=== PATIENT | male | born 1960 | race Caucasian/White ===

== ENCOUNTER 2017-01-17 05:24 | Observation (INO) | payer OTHER ==
[~2017-01-17] VITALS: Ht 175.3 cm; Wt 94.9 kg
--- OUTSIDE RECORDS SUMMARY | ~2017-01-17 | XMS | Clinical Summary ---
Demographics + + + | Address | [address] | | | [place] [address] | + + + | Home Phone | | + + + | Preferred Language | Unknown | + + + | Marital Status | Single | + + + | Temple Affiliation | UNK | + + + | Race | White | + + + | Ethnic Group | Not or | + + + Author + + + | Organization | Unknown | + + + | Address | Unknown | + + + | Phone | Unavailable | + + + Care Team Providers + +------+ + | Care Adjunct Professor Of English Name | Role | Phone | + +------+ + PP | Unavailable | + +------+ + Source Comments DAVIAN is fully live on both [facility] Ambulatory and [facility] InPatient.[facility] Allergies Not on File [...]
[~2017-01-17 05:24] MED LIST: AMITRIPTYLINE H50 MG PO; AMITRIPTYLINE150 MG PO; ASPIRIN EC81 MG PO; BACTRIM DS TAB1 EACH PO; BENADRYL25 MG PO; BUMETANIDE1 MG PO; BUTALB-ACETAMI1 EACH PO; CIMETIDINE400 MG PO; COREG12.5 MG PO; COREG6.25 MG PO; CRESTOR40 MG PO; CYCLOBENZAPRINE10 MG PO; DEPAKOTE500 MG PO; DIGOXIN250 MCG PO; FISH OIL 1,0001 EAC2 PO; FOLIC ACID1 MG PO; GLIMEPIRIDE4 MG PO; GLUCOPHAGE1000 MG PO; GLYBURIDE2.5 MG PO; K-TAB ER20 MEQ PO; LANTUS SOL100 UNIT/1 SUB-Q; LASIX20 MG PO; LASIX40 MG PO; LISINOPRIL10 MG PO; MAGOX 400400 MG PO; MEDROL4 MG PO; METFORMIN HCL500 MG PO; MORPHINE SULFAT15 MG PO; MORPHINE SULFAT30 M1 PO; MS CONTIN30 MG PO; MS CONTIN60 MG PO; NABUMETONE750 MG PO; NITROGLYCERIN0.4 MG SL; NORCO 10-325 T1 EACH PO; NOVOLOG FL100 UNIT/1 SUB-Q; PLAVIX75 MG PO; POTASSIUM CHLO10 MEQ PO; RANITIDINE HCL150 MG PO; SEROQUEL50 MG PO; SIMVASTATIN80 MG PO; TRICOR145 MG PO; VENTOLIN HFA18 GM INH; VITAMIN D5000 UNIT PO; VYTORIN 10-401 EACH PO; ZYPREXA10 MG PO; [UNRECOGNIZED DRUG - OTHER]
[2017-01-17] MEDS ORDERED: NEURONTIN300 MG PO (05:47)
[2017-01-17] MEDS ORDERED: MORPHINE SULFAT30 M1 PO (06:18)
[2017-01-17] MEDS ORDERED: NIACIN1000 MG PO (06:20)
[2017-01-18] MEDS ORDERED: ONDANSETRON HCL4 MG PO (11:40)
--- NOTE | 2017-01-19 00:36 | EKG ---
[facility] [address] [place] [address] Signed Sinus tachycardia with 1st degree AV block Right superior axis deviation Pulmonary disease pattern Cannot rule out Inferior infarct (cited on or before 26-MAR-2016) Abnormal ECG When compared with ECG of 26-MAR-2016 16:32, [place] interval has increased Questionable change in initial forces of Inferior leads Confirmed by ALTA MORALES MD ([id number]) on 01/19/2017 12:36:15 AM Electronically Signed By: ALTA MORALES MD 01/19/17 0036 PATIENT NAME: MIGUELANGEL TRACY Electrocardiogram DATE OF : 58 PHYSICIAN: ALTA MORALES MD REPORT #: [id number] REPORT IS CONFIDENTIAL AND NOT TO BE RELEASED WITHOUT AUTHORIZATION
== END 2017-01-18 13:40 | disposition home or self-care (01) ==
LOC: ED 05:24 → CCU 05:25 → MS 15:29
PROVIDERS: ADMIT Internal Medicine
DX: K52.9 Noninfective gastroenteritis and colitis, unspecified (principal); I50.22 Chronic systolic (congestive) heart failure; I25.10 Atherosclerotic heart disease of native coronary artery without angina pectoris; E11.9 Type 2 diabetes mellitus without complications; F31.9 Bipolar disorder, unspecified; E78.5 Hyperlipidemia, unspecified; M54.5 Low back pain; G89.29 Other chronic pain; F11.20 Opioid dependence, uncomplicated; D72.829 Elevated white blood cell count, unspecified; M19.90 Unspecified osteoarthritis, unspecified site; I25.2 Old myocardial infarction; G43.909 Migraine, unspecified, not intractable, without status migrainosus; Z87.891 Personal history of nicotine dependence; Z79.82 Long term (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; Z79.4 Long term (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; Z79.891 Long term (current) use of opiate analgesic; Z79.899 Other long term (current) drug therapy; Z95.5 Presence of coronary angioplasty implant and graft; Z95.810 Presence of automatic (implantable) cardiac defibrillator
CPT/HCPCS: 36415; 71010; 80053; 80162; 83690; 83735; 83880; 84484; 85025; 93005; 93010; 94640; 94667; 94668; 94762; 96361; 96372; 96374; 96375; 96376; 99285; G0378; J0780; J1160; J1200; J1650; J1885; J2270; J2405; J2550; J2930; J7030; J7120

== ENCOUNTER 2017-04-24 15:58 | Emergency (ER) | payer OTHER ==
[~2017-04-24] VITALS: Ht 175.3 cm; Wt 94.9 kg
[~2017-04-24 15:58] MED LIST changes: +NEURONTIN300 MG PO; +NIACIN1000 MG PO; +ONDANSETRON HCL4 MG PO
[2017-04-24] MEDS ORDERED: METHYLPREDNISOLO4 M1 PO (17:22)
[2017-04-24] MEDS ORDERED: LEVAQUIN500 MG PO (17:22)
--- OUTSIDE RECORDS SUMMARY | 2017-04-24 17:31 | XMS | Clinical Summary ---
Demographics + + + | Address | [address] | | | [place] [address] | + + + | Home Phone | | + + + | Preferred Language | Unknown | + + + | Marital Status | Single | + + + | Yazdanism Affiliation | UNK | + + + | Race | White | + + + | Ethnic Group | Not or | + + + Author + + + | Organization | Unknown | + + + | Address | Unknown | + + + | Phone | Unavailable | + + + Care Team Providers + +------+ + | Care Computer Help Desk Specialist Name | Role | Phone | + +------+ + PP | Unavailable | + +------+ + Source Comments DAVIAN is fully live on both [facility] Ambulatory and [facility] InPatient.[facility] Allergies Not on File Current Medications Not on file Active Problems Not on file Social History + +-------+ +--------+------+ | Tobacco Use | Types | Packs/Day | Years | Date | | | | | Used | | + +-------+ +--------+------+ | Never Assessed | | | | | + +-------+ +--------+------+ + + + | Sex Assigned at | Date Recorded | | | | + + + | Not on file | | + + + Plan of Treatment + + + + + | Health Maintenance | Due Date | Last Done | Comments | + + + + + | INFLUENZA VACCINE | | | | | (FLU SHOT) | 7 | | | + + + + + Results Not on filefrom Last 3 Months"
--- OUTSIDE RECORDS SUMMARY | 2017-04-24 17:31 | XMS | Clinical Summary ---
Demographics + + + | Address | [address] | | | [place] [address] | + + + | Home Phone | | + + + | Preferred Language | Unknown | + + + | Marital Status | Single | + + + | Restorationist Affiliation | UNK | + + + | Race | White | + + + | Ethnic Group | Not or | + + + Author + + + | Organization | Unknown | + + + | Address | Unknown | + + + | Phone | Unavailable | + + + Care Team Providers + +------+ + | Care Handle Sander Operator Name | Role | Phone | + +------+ + PP | Unavailable | + +------+ + Source Comments DAVIAN is fully live on both [facility] Ambulatory and [facility] InPatient.[facility] Allergies Not on File Current Medications Not [...]
--- NOTE | 2017-04-24 18:38 | EKG ---
[facility] [address] [facility] [place] [address] Signed Normal sinus rhythm Right superior axis deviation Pulmonary disease pattern Possible Inferior infarct (cited on or before 26-MAR-2016) Abnormal ECG When compared with ECG of 17-JAN-2017 05:46, [place] interval has decreased ST no longer depressed in Anterior leads Confirmed by GOLDY GOODWIN MD ([id number]) on 04/24/2017 6:38:24 PM Electronically Signed By: GOLDY GOODWIN MD 04/24/17 1838 PATIENT NAME: MIGUELANGEL TRACY Electrocardiogram DATE OF : 58 PHYSICIAN: GOLDY GOODWIN MD REPORT #: [id number] REPORT IS CONFIDENTIAL AND NOT TO BE RELEASED WITHOUT AUTHORIZATION
== END 2017-04-24 18:29 | disposition home or self-care (01) ==
LOC: ED 15:58
DX: J42 Unspecified chronic bronchitis (principal); R07.9 Chest pain, unspecified; E11.9 Type 2 diabetes mellitus without complications; I25.2 Old myocardial infarction; I25.10 Atherosclerotic heart disease of native coronary artery without angina pectoris; Z79.4 Long term (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; Z79.82 Long term (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
CPT/HCPCS: 71045; 80053; 84484; 85025; 93005; 93010; 94640; 96374; 99283; J2930

== ENCOUNTER 2018-04-30 19:35 | Emergency (ER) | payer OTHER ==
[~2018-04-30] VITALS: Ht 175.3 cm; Wt 97.5 kg
--- OUTSIDE RECORDS SUMMARY | ~2018-04-30 | XMS | Clinical Summary ---
Demographics + + + | Address | [address] | | | [place] [address] | + + + | Home Phone | | + + + | Preferred Language | Unknown | + + + | Marital Status | | + + + | Nondenominational Affiliation | Unknown | + + + | Race | Unknown | + + + | Ethnic Group | Unknown | + + + Author + + + | Author | [facility] | + + + | Organization | [facility] | + + + | Address | Unknown | + + + | Phone | Unavailable | + + + Support + + +---------+ + | Name | Relationship | Address | Phone | + + +---------+ + | Asia Argueta | ECON | Unknown | | + + +---------+ + | Contreras Prakash | ECON | Unknown | | + + +---------+ + | Meir Blackmon | ECON | Unknown | | + + +---------+ + Care Team Providers + +------+ + | Care Housecleaner Floor Name | Role | Phone | + +------+ + | Donnell Ramirez DO | PP | | + +------+ + Allergies No Known Allergies Current Medications + + +---------+---------+------+------+-------+ | Prescription | Sig. | Disp. | Refills | Star | End | Statu | | | | | | t | Date | s | | | | | | Date | | | + + +---------+---------+------+------+-------+ | aspirin EC 81 MG | Take 81 mg by mouth | | | | | Activ | | EC tablet | daily with | | | | | e | | | breakfast. | | | | | | + + +---------+---------+------+------+-------+ | | Take 1 capsule by | | | | | Activ | | butalbital-acetamino | mouth every 4 (four) | | | | | e | | phen-caffeine | hours as needed for | | | | | | | (FIORICET WITH | Headaches. | | | | | | | CODEINE) | | | | | | | | [phone] MG per | | | | | | | | capsule | | | | | | | + + +---------+---------+------+------+-------+ | cyclobenzaprine | Take 10 mg by mouth | | | | | Activ | | (FLEXERIL) 10 MG | 3 (three) times | | | | | e | | tablet | daily as needed for | | | | | | | | Muscle spasms. | | | | | | + + +---------+---------+------+------+-------+ | diphenhydrAMINE | Take 50 mg by mouth | | | | | Activ | | (BENADRYL) 50 MG | 2 (two) times daily. | | | | | e | | capsule | | | | | | | + + +---------+---------+------+------+-------+ | folic acid | Take 0.5 mg by mouth | | | | | Activ | | (FOLVITE) 1 MG | daily. | | | | | e | | tablet | | | | | | | + + +---------+---------+------+------+-------+ | | Take 1 tablet by | | | | | Activ | | HYDROcodone-acetamin | mouth 3 (three) | | | | | e | | ophen (NORCO) 10-325 | times daily. | | | | | | | MG per tablet | | | | | | | + + +---------+---------+------+------+-------+ | insulin glargine | Inject 20 Units into | | | | | Activ | | (LANTUS) 100 UNIT/ML | the skin nightly. | | | | | e | | injection | | | | | | | + + +---------+---------+------+------+-------+ | | Take 1 tablet by | | | | | Activ | | gwuywrjexstw-bwau-wt | mouth daily. | | | | | e | | nerals-folic acid | | | | | | | | (CENTRUM) chewable | | | | | | | | tablet | | | | | | | + + +---------+---------+------+------+-------+ | nabumetone | Take 750 mg by mouth | | | | | Activ | | (RELAFEN) 750 MG | 2 (two) times | | | | | e | | tablet | daily. | | | | | | + + +---------+---------+------+------+-------+ | OLANZapine | Take 10 mg by mouth | | | | | Activ | | (ZYPREXA) 10 MG | nightly. | | | | | e | | tablet | | | | | | | + + +---------+---------+------+------+-------+ | carvedilol (COREG) | Take 1 tablet by | 60 | 11 | 10/1 | | Activ | | 12.5 MG tablet | mouth 2 (two) times | tablet | | 8/20 | | e | | | daily with meals. | | | 14 | | | + + +---------+---------+------+------+-------+ | clopidogrel | Take 1 tablet by | 30 | 11 | 10/1 | | Activ | | (PLAVIX) 75 MG | mouth daily. | tablet | | 8/20 | | e | | tablet | | | | 14 | | | + + +---------+---------+------+------+-------+ | digoxin (LANOXIN) | Take 1 tablet by | 30 | 11 | 10/1 | | Activ | | 0.25 MG tablet | mouth daily. | tablet | | 8/20 | | e | | | | | | 14 | | | + + +---------+---------+------+------+-------+ | ezetimibe (ZETIA) | Take 1 tablet by | 30 | 11 | 10/1 | | Activ | | 10 MG tablet | mouth nightly. | tablet | | 8/20 | | e | | | | | | 14 | | | + + +---------+---------+------+------+-------+ | simvastatin | Take 1 tablet by | 30 | 11 | 10/1 | | Activ | | (ZOCOR) 80 MG tablet | mouth nightly. | tablet | | 8/20 | | e | | | | | | 14 | | | + + +---------+---------+------+------+-------+ | furosemide (LASIX) | Take 1 tablet by | 60 | 11 | 10/1 | | Activ | | 40 MG tablet | mouth Two times | tablet | | 8/20 | | e | | | daily. | | | 14 | | | + + +---------+---------+------+------+-------+ | glimepiride | Take 1 tablet by | 30 | 11 | 10/1 | | Activ | | (AMARYL) 4 MG tablet | mouth daily with | tablet | | 8/20 | | e | | | breakfast. | | | 14 | | | + + +---------+---------+------+------+-------+ | insulin aspart | Inject 0-6 Units | 15 mL | 12 | 10/1 | | Activ | | (NOVOLOG) 100 | into the skin 3 | | | 8/20 | | e | | UNIT/ML injection | (three) times daily | | | 14 | | | | | before meals. | | | | | | + + +---------+---------+------+------+-------+ | lisinopril | Take 1 tablet by | 30 | 11 | 10/1 | | Activ | | (ZESTRIL) 10 MG | mouth daily. | tablet | | 8/20 | | e | | tablet | | | | 14 | | | + + +---------+---------+------+------+-------+ | nitroGLYCERIN | Place 1 tablet under | 90 | 12 | 10/1 | | Activ | | (NITROSTAT) 0.4 MG | the tongue every 5 | tablet | | 8/20 | | e | | SL tablet | (five) minutes as | | | 14 | | | | | needed for Chest | | | | | | | | pain. | | | | | | + + +---------+---------+------+------+-------+ | potassium chloride | Take 1 tablet by | 60 | 11 | 10/1 | | Activ | | (K-DUR) 10 MEQ | mouth 2 (two) times | tablet | | 8/20 | | e | | tablet | daily with meals. | | | 14 | | | + + +---------+---------+------+------+-------+ | morphine (MS | Take 1 tablet by | 60 | 0 | 10/1 | | Activ | | CONTIN) 60 MG 12 hr | mouth 2 (two) times | tablet | | 8/20 | | e | | tablet | daily. | | | 14 | | | + + +---------+---------+------+------+-------+ | omega-3 acid ethyl | Take 1 capsule by | 120 | 11 | 02/0 | | Activ | | esters (LOVAZA) 1 G | mouth 2 (two) times | capsule | | 6/20 | | e | | capsule | daily. | | | 15 | | | + + +---------+---------+------+------+-------+ | co-enzyme Q-10 30 | Take 7 capsules by | 180 | 11 | 02/0 | | Activ | | MG capsule | mouth 2 (two) times | capsule | | 6/20 | | e | | | daily. | | | 15 | | | + + +---------+---------+------+------+-------+ | MAGNESIUM-OXIDE | TAKE ONE TABLET BY | 60 | 1 | 02/2 | | Activ | | 400 (241.3 MG) MG | MOUTH TWICE A DAY | tablet | | 2/20 | | e | | TABS tablet | | | | 17 | | | + + +---------+---------+------+------+-------+ | magnesium oxide | TAKE ONE TABLET BY | 60 | 11 | 11/0 | | Activ | | (MAG-OX) 400 MG TABS | MOUTH TWICE A DAY | tablet | | 6/20 | | e | | tablet | | | | 18 | | | + + +---------+---------+------+------+-------+ | magnesium oxide | TAKE ONE TABLET BY | 60 | 11 | 01/0 | | Activ | | (MAG-OX) 400 MG TABS | MOUTH TWICE A DAY | tablet | | 9/20 | | e | | tablet | | | | 19 | | | + + +---------+---------+------+------+-------+ Active Problems + + + | Problem | Noted Date | + + + | Chest pain, unspecified | 12/02/2013 | + + + | CAD (coronary artery disease) | 12/02/2013 | + + + | Cardiomyopathy (HCC) | 12/02/2013 | + + + | Dilated cardiomyopathy (HCC) | 12/02/2013 | + + + | Chronic systolic CHF (congestive heart failure) | 12/02/2013 | + + + | Diabetes mellitus (HCC) | 12/02/2013 | + + + | COPD (chronic obstructive pulmonary disease) | 12/02/2013 | + + + | Dyslipidemia | 12/02/2013 | + + + Encounters +--------+--------+ + + + | Date | Type | Specialty | Care Team | Description | +--------+--------+ + + + | 02/23/ | Refill | | Krysta Nj NP | Medication Refill | | 2018 | | | | | +--------+--------+ + + + from Last 3 Months Family History + + +------+ + | Medical History | Relation | Name | Comments | + + +------+ + | Heart disease | Father | | | + + +------+ + | Cancer | Mother | | | + + +------+ + + +------+ + + | Relation | Name | Status | Comments | + +------+ + + | Father | | | | + +------+ + + | Mother | | | | + +------+ + + Social History + +-------+ +--------+ + | Tobacco Use | Types | Packs/Day | Years | Date | | | | | Used | | + +-------+ +--------+ + | Former Smoker | | 1 | 30 | Quit: 09/16/2013 | + +-------+ +--------+ + + + +---------+ + | Alcohol Use | Drinks/We | oz/Week | Comments | | | ek | | | + + +---------+ + | No | | | previous alcoholic, sober for 25 yrs | + + +---------+ + + + + | Sex Assigned at | Date Recorded | | | | + + + | Not on file | | + + + Last Filed Vital Signs + + + + | Vital Sign | Reading | Time Taken | + + + + | Blood Pressure | 97/57 | 03/24/2014 11:41 AM PST | + + + + | Pulse | 74 | 03/24/2014 11:41 AM PST | + + + + | Temperature | 36.8 C (98.3 F) | 12/15/2013 7:44 AM PDT | + + + + | Respiratory Rate | 20 | 03/24/2014 11:41 AM PST | + + + + | Oxygen Saturation | 99% | 03/24/2014 11:41 AM PST | + + + + | Inhaled Oxygen | - | - | | Concentration | | | + + + + | Weight | 93.3 kg (205 lb 9.6 | 03/24/2014 11:41 AM PST | | | oz) | | + + + + | Height | 175.3 cm (5' 9") | 03/24/2014 11:41 AM PST | + + + + | Body Mass Index | 30.36 | 03/24/2014 11:41 AM PST | + + + + Plan of Treatment + + + + + | Health Maintenance | Due Date | Last Done | Comments | + + + + + | Diabetic Eye Exam | | | | | | 9 | | | + + + + + | Diabetic Foot Exam | | | | | | 9 | | | + + + + + | Microalbumin | | | | | Screening | 9 | | | + + + + + | Vaccine: | | | | | Dtap/Tdap/Td (1 - | 8 | | | | Tdap) | | | | + + + + + | Vaccine: | | | | | Pneumococcal 19-64 | 8 | | | | (PPSV23 only) Medium | | | | | Risk (1 of 1 - | | | | | PPSV23) | | | | + + + + + | Colon Cancer | | | | | Screening | 9 | | | | (Colonoscopy) | | | | + + + + + | Vaccine: Zoster (1 | | | | | of 2) | 9 | | | + + + + + | Lung Cancer | | | | | Screening | 4 | | | + + + + + | Hemoglobin A1c | | 12/03/2013 | | | | 5 | | | + + + + + | Statin Therapy | | | | | (optimal intensity) | 6 | | | + + + + + | Vaccine: Influenza | | | | | (#1) | 8 | | | + + + + + Implants + +--------+------+ +--------+--------+--------+ | Implanted | Type | Area | Manufacture | Device | Expira | Model | | | | | r | | tion | / | | | | | | Identi | Date | Serial | | | | | | fier | | / Lot | + +--------+------+ +--------+--------+--------+ | RvImplanted: Qty: 1 on | Cardia | | | | | | | 12/14/2013 by Martin Aguilera | juan diego | | | | | /[id number] | | RMD | Rhythm | | | | | [id number] | | | | | | | | / | | | Manage | | | | | | | | ment | | | | | | + +--------+------+ +--------+--------+--------+ | RaImplanted: Qty: 1 on | Cardia | | [employer]TRONIC | | | | | 12/14/2013 by Martin Aguilera | c | | | | | /[id number] | | MD Payal | Rhythm | | | | | [id number] | | | | | | | | / | | | Manage | | | | | | | | ment | | | | | | + +--------+------+ +--------+--------+--------+ | IcdImplanted: Qty: 1 on | Cardia | | [employer] | | | | | 12/14/2013 by Martin Aguilera | c | | | | | /[id number] | | MD Payal | Rhythm | | | | | D4 / | | | | | | | | | | | Manage | | | | | | | | ment | | | | | | + +--------+------+ +--------+--------+--------+ Results Not on filefrom Last 3 Months Insurance + +--------+ +------+-------+ + | Payer | Benefi | Subscriber | Type | Phone | Address | | | t Plan | ID | | | | | | / | | | | | | | Group | | | | | + +--------+ +------+-------+ + | MEDICAID | MIRNA | [id number] | | | [address] | | | N | | | | [place] | | | [place] | | | | [phone] | | | [employer] | | | | | + +--------+ +------+-------+ + + +--------+ +--------+ + + | Guarantor Name | Accoun | Relation to | Date | Phone | Billing Address | | | t Type | Patient | of | | | | | | | | | | + +--------+ +--------+ + + | MIGUELANGEL ARGUETA | Person | Self [birth year] | Home: | [address] | | | al/Fam | | [phone] [place] | | | [place] | | [phone] | + +--------+ +--------+ + +
--- OUTSIDE RECORDS SUMMARY | ~2018-04-30 | XMS | Encounter Summary ---
Demographics + + + | Address | [address] | | | [place] [address] | + + + | Home Phone | | + + + | Preferred Language | Unknown | + + + | Marital Status | | + + + | Episcopalian Affiliation | Unknown | + + + | Race | Unknown | + + + | Ethnic Group | Unknown | + + + Author + + + | Author | [facility] | | | and [place] | + + + | Organization | [facility] | | | and [place] | + + + | Address | Unknown | + + + | Phone | Unavailable | + + + Support + + + + + | Name | Relationship | Address | Phone | + + + + + | Contreras Marie | ECON | [place] | | + + + + + | Asia Argueta | ECON | [address] | | | | | [place] | | | | | [address] | | + + + + + Care Team Providers + +------+ + | Care Adult Ministries Director Name | Role | Phone | + +------+ + PCP | Unavailable | + +------+ + Reason for Visit + + + | Reason | Comments | + + + | Device Check | Billed | | (Remote) | | + + + Encounter Details +--------+ + + + + | Date | Type | Department | Care Team | Description | +--------+ + + + + | 02/14/ | Implant | [facility] | Mary Rollins, | Remote Device | | 2018 | Monitor | CARDIOLOGY [address] [place] | Interrogation | | | | [place], | [place], | (Primary Dx); | | | | [place] [address] | [place] [address] | Medtronic dual | | | | [phone] | [phone] | chamber ICD | | | | | | implanted 12/14/13- | | | | | | Dr. Aguilera; | | | | | | Cardiomyopathy, | | | | | | unspecified type | | | | | | ([facility]) | +--------+ + + + + Social History + + + +--------+ + | Tobacco Use | Types | Packs/Day | Years | Date | | | | | Used | | + + + +--------+ + | Current Some Day | Cigarettes | 0.5 | 30 | Quit: 10/15/2013 | | Smoker | | | | | + + + +--------+ + + +---+---+---+ | Smokeless Tobacco: | | | | | Former User | | | | + +---+---+---+ + + | Comments: Only in high school | + + + + +---------+ + | Alcohol Use | Drinks/We | oz/Week | Comments | | | ek | | | + + +---------+ + | No | | | | + + +---------+ + + + + | Sex Assigned at | Date Recorded | | | | + + + | Not on file | | + + + as of this encounter Functional Status + + + + | Functional Status | Response | Date of Assessment | + + + + | Are you deaf or do you have serious | No | 11/30/2013 | | difficulty hearing? | | | + + + + | Are you blind or do you have serious | No | 11/30/2013 | | difficulty seeing, even when wearing | | | | glasses? | | | + + + + | Do you have serious difficulty walking or | No | 11/30/2013 | | climbing stairs? (5 years old or older) | | | + + + + | Do you have difficulty dressing or bathing? | No | 11/30/2013 | | (5 years old or older) | | | + + + + | Because of a physical, mental, or emotional | No | 11/30/2013 | | condition, do you have difficulty doing | | | | errands alone such as visiting a doctor's | | | | office or shopping? [15 years old or | | | | older)] | | | + + + + + + + + | Cognitive Status | Response | Date of Assessment | + + + + | Because of a physical, mental, or emotional | No | 11/30/2013 | | condition, do you have serious difficulty | | | | concentrating, remembering, or making | | | | decisions? (5 years old or older) | | | + + + + as of this encounter Plan of Treatment +--------+ + + + + | Date | Type | Specialty | Care Team | Description | +--------+ + + + + | 05/16/ | Implant | Cardiology | Mary Rollins, | Remote Device | | 2019 | Monitor | | [address] | Interrogation | | | | | [place], | (Primary Dx); | | | | | [place] [address] | Medtronic dual | | | | | [phone] | chamber ICD | | | | | | implanted 12/14/13- | | | | | | Dr. Aguilera; | | | | | | Cardiomyopathy, | | | | | | unspecified type | | | | | | (HCC) | +--------+ + + + + | 05/27/ | Appointment | Radiology | Lg, | | | 2018 | | | [address] | | | | | | [place], | | | | | | [place] [address] | | | | | | [phone] | | | | | | | | +--------+ + + + + | 07/07/ | Procedure | Cardiology | | | | 2018 | visit | | | | +--------+ + + + + | 07/07/ | Office | Cardiology | Lg, | | | 2018 | Visit | | [address] | | | | | | [place], | | | | | | [place] [address] | | | | | | [phone] | | | | | | | | +--------+ + + + + as of this encounter Procedures + +--------+ + + + | Procedure Name | Priori | Date/Time | Associated Diagnosis | Comments | | | ty | | | | + +--------+ + + + | DEVICE | Routin | 02/14/2018 | Remote Device | Results for this | | INTERROGATION- | e | 962 PST | Interrogation | procedure are in the | | REMOTE | | | Medtronic dual | results section. | | | | | chamber ICD | | | | | | implanted 12/14/13- | | | | | | Dr. Aguilera | | | | | | Cardiomyopathy, | | | | | | unspecified type | | | | | | (HCC) | | + +--------+ + + + in this encounter Results Device Interrogation - Remote (02/14/2018 2359) + + + | Narrative | Performed At | + + + | Mary | [facility]O | | MD Ayo 02/12/2018 11:56Date of Remote Interrogation: | | | 02/02/2018 Refer to [facility] documentation and remote PDF scanned into | | | [facility] for remote interrogation results. Data collected by Ruthann Moe | | | LUZ ELENA Alvarez Presenting rhythm: Sinus rhythm, atrial sensed | | | ventricular sensed rate 87-90 beats. 0 mode switch episodes accounting | | | for <0.1% of the time.No episodes. No tachycardia therapies | | | recommended or delivered. PVC singles 32/hr | | | PVC runs <0.1/hr Histogram good. | | | Battery longevity 7.2 years.Apparent normal and stable device | | | function.Device interrogation due in office in May 2018. | | |PVC singles 32/hr | | |PVC runs <0.1/hr | | |Histogram good. Battery longevity 7.2 years. | | |Apparent normal and stable device function. | | |Device interrogation due in office in May 2018. | | | | | | | | + + + + +---------+ + + | Performing | Address | City/State/Zipcode | Phone Number | | Organization | | | | + +---------+ + + | [facility] | | | | + +---------+ + + in this encounter Visit Diagnoses + + | Diagnosis | + + | Remote Device Interrogation - Primary | + + | Fitting and adjustment of automatic implantable cardiac defibrillator | + + | Medtronic dual chamber ICD implanted 12/14/13- Dr. Aguilera | + + | Automatic implantable cardiac defibrillator in situ | + + | Cardiomyopathy, unspecified type (HCC) | + +"
--- OUTSIDE RECORDS SUMMARY | ~2018-04-30 | XMS | Clinical Summary ---
Demographics + + + | Address | [address] | | | [place] [address] | + + + | Home Phone | | + + + | Preferred Language | Unknown | + + + | Marital Status | Single | + + + | Rastafari Affiliation | UNK | + + + | Race | White | + + + | Ethnic Group | Not or | + + + Author + + + | Organization | Unknown | + + + | Address | Unknown | + + + | Phone | Unavailable | + + + Care Team Providers + +------+ + | Care Aircraft Hydraulic Equipment Mechanic Name | Role | Phone | + +------+ + PP | Unavailable | + +------+ + Source Comments DAVIAN is fully live on both [facility] Amb[facility] and [facility] InPatient.[facility] Allergies Not on File Current Medications [...] | + + + + + | Influenza (Flu) | | | | | vaccination (#1) | 8 | | | + + + + + Results Not on filefrom Last 3 Months"
--- OUTSIDE RECORDS SUMMARY | ~2018-04-30 | XMS | Clinical Summary ---
Demographics + + + | Address | [address] | | | [place] [address] | + + + | Home Phone | | + + + | Preferred Language | Unknown | + + + | Marital Status | | + + + | Taoist Affiliation | Unknown | + + + | Race | Unknown | + + + | Ethnic Group | Unknown | + + + Author + + + | Author | [facility] | + + + | Organization | [facility] | + + + | Address | [...] Team Providers + +------+ + | Care Automatic Cigar Wrapper Tender Name | Role | Phone | + [...] | | | | | | | [id number] MG per | | | | | [...] | | | | Activ | | [id number] | mouth daily. | | | | [...] | Rhythm | | | | | [id number] | | | | | | | [...] +------+-------+ + | MEDICAID | [place]IR[place] | [id number] | | | [address] | | | [place] | | | | [place] | | | [place] | | | | [address] | | | [place] | | | | | + +--------+ [...] | | al/Fam | | [phone] | [phone] | [place] | | | akshat | | | [phone] | [phone] | + +--------+ +--------+ + +
--- OUTSIDE RECORDS SUMMARY | ~2018-04-30 | XMS | Encounter Summary ---
Demographics + + + | Address | [address] | | | [place] [address] | + + + | Home Phone | | + + + | Preferred Language | Unknown | + + + | Marital Status | | + + + | Confucianist Affiliation | Unknown | + + + | Race | Unknown | + + + | Ethnic Group | Unknown | + + + Author + + + | Author | [facility] | | | and [place] | + + + | Organization | [facility] | | | and [place] | [...] [place] | | | | | [address] | | + + + + + Care Team Providers + +------+ + | Care Registered Account Administrator Name | Role | Phone | + [...] | 02/14/ | Implant | [facility] [place] | Mary Rollins, | Remote Device | | 2018 | Monitor | CARDIOLOGY [address] | Interrogation | | | | [place], | [place], | (Primary Dx); | | | | [place] [address] | [place] [address] | Medtronic dual | | | | [phone] | [phone] | chamber ICD | | | | | | implanted 12/14/13- | | | | | | Dr. Aguilera; | | | | | | Cardiomyopathy, | | | | | | unspecified type | | | | | | ([facility]LY [facility]) | +--------+ + + + + Social [...] Dx); | | | | | [place] [address] | Medtronic dual | | | | | [phone] | chamber ICD | | | | [...] W | | | | | | [place], | | | | | | [place] [address] | | | | | | [phone] | | | | | | | | +--------+ + + + + | 07/07/ | Procedure | Cardiology | | | | 2018 | visit | | | | +--------+ + + + + | 07/07/ | Office | Cardiology | Lg, | | | 2018 | Visit | | [address] | | | | | | [place], | | | | | | [place] [address] | | | | | | [phone] | | | | | | | [...] this | | INTERROGATION- | e | 146 PST | Interrogation | procedure are in [...] remote PDF scanned into | | | [facility] for remote interrogation results. Data collected by [...]
--- OUTSIDE RECORDS SUMMARY | ~2018-04-30 | XMS | Encounter Summary ---
Demographics + + + | Address | [address] | | | [place] [address] | + + + | Home Phone | | + + + | Preferred Language | Unknown | + + + | Marital Status | | + + + | Sikh Affiliation | Unknown | + + + | Race | Unknown | + + + | Ethnic Group | Unknown | + + + Author + + + | Author | and [facility] | | | and [place] | + + + | Organization | and [facility] | | | and [place] | [...] [address] | | | | | [place] | | | | | [address] | | + + + + + Care Team Providers + +------+ + | Care Claim Rep Name | Role | Phone | + +------+ + | Donnell Ramirez DO | PCP | | + +------+ + Reason for Visit + + + | Reason | Comments | + + + | Medication Prior | Rosuvastatin | | Authorization | | + + + Encounter Details +--------+ + + + + | Date | Type | Department | Care Team | Description | +--------+ + + + + | 02/26/ | Telephone | [facility] | Lg, | Medication Prior | | 2019 | | CARDIOLOGY [address] | [address] | Authorization | | | | [place], | [place], | (Rosuvastatin) | | | | [place] [address] | [place] [address] | | | | | [phone] | [phone] | | | | | | | | +--------+ + + + + Social [...] | | 2019 | Monitor | | MD Osmani Gil | Interrogation | | | | | [place], | (Primary Dx); | | | | | [place] [address] | Medtronic dual | | | | | [phone] | chamber ICD | | | | | | implanted 12/14/13- | | | | | | Dr. Augilera; | | | | | | Cardiomyopathy, | | | | | | unspecified type | | | | | | (HCC) | +--------+ + + + + | 05/27/ | Appointment | Radiology | Lg, | | | 2018 | | | [address] | | | | | | [place], | | | | | | [place] [address] | | | | | | [phone] | | | | | | | | +--------+ + + + + | 07/07/ | Procedure | Cardiology | | | | 2018 | visit | | | | +--------+ + + + + | 07/07/ | Office | Cardiology | Lg, | | | 2018 | Visit | | [address] | | | | | | [place], | | | | | | [place] [address] | | | | | | [phone] | | | | | | | | +--------+ + + + + as of this encounter Visit Diagnoses Not on filein this encounter"
--- OUTSIDE RECORDS SUMMARY | ~2018-04-30 | XMS | Clinical Summary ---
Demographics + + + | Address | [address] | | | [place] [address] | + + + | Home Phone | | + + + | Preferred Language | Unknown | + + + | Marital Status | | + + + | Taoist Affiliation | Unknown | + + + | Race | Unknown | + + + | Ethnic Group | Unknown | + + + Author + + + | Author | [facility] | | | and [place] | + + + | Organization | [facility] | | | and [place] | + + + | Address | Unknown | + + + | Phone | Unavailable | + + + Support + + + + + | Name | Relationship | Address | Phone | + + + + + | Contreras Marie | ECON | [place] | | + + + + + | Asia Tracy | ECON | [address] | | | | | [place] | | | | | [address] | | + + + + + Care Team Providers + +------+ + | Care Videogame Designer Name | Role | Phone | + +------+ + | Donnell Ramirez DO | PP | | + +------+ + Allergies + + + +--------+ + | Active Allergy | Reactions | Severity | Noted | Comments | | | | | Date | | + + + +--------+ + | Fluconazole | Rash | Low | | | + + + +--------+ + | Lovastatin | Other (See Comments) | | | | + + + +--------+ + Current Medications + + +--------+---------+------+------+-------+ | Prescription | Sig. | Disp. | Refills | Star | End | Statu | | | | | | t | Date | s | | | | | | Date | | | + + +--------+---------+------+------+-------+ | diphenhydrAMINE | Take 50 mg by mouth | | | | | Activ | | (BENADRYL) 25 MG | 2 times daily. | | | | | e | | capsule | | | | | | | + + +--------+---------+------+------+-------+ | amitriptyline | Take 150 mg by mouth | | | | | Activ | | (ELAVIL) 150 MG | nightly. | | | | | e | | tablet | | | | | | | + + +--------+---------+------+------+-------+ | nabumetone | Take 750 mg by mouth | | | | | Activ | | (RELAFEN) 750 mg | 2 times daily. | | | | | e | | tablet | | | | | | | + + +--------+---------+------+------+-------+ | folic acid 1 mg | Take 0.5 mg by mouth | | | | | Activ | | tablet | Daily. | | | | | e | + + +--------+---------+------+------+-------+ | Multiple | Take 1 tablet by | | | | | Activ | | Vitamins-Minerals | mouth Daily. | | | | | e | | (CENTRUM SILVER PO) | | | | | | | + + +--------+---------+------+------+-------+ | ALBUTEROL | Inhale 1 puff into | | | | | Activ | | | the lungs as needed. | | | | | e | | | Uses only as | | | | | | | | needed. | | | | | | + + +--------+---------+------+------+-------+ | morphine (MS | Take 1 tablet by | 60 | 0 | 10/1 | | Activ | | CONTIN) 60 mg ER | mouth 2 times daily. | tablet | | 3/20 | | e | | tabletIndications: | | | | 14 | | | | Chronic pain | | | | | | | + + +--------+---------+------+------+-------+ | OLANZapine | Take 10 mg by mouth | | | | | Activ | | (ZYPREXA) 10 MG | nightly. | | | | | e | | tablet | | | | | | | + + +--------+---------+------+------+-------+ | metformin | Take 1,000 mg by | | | | | Activ | | (GLUCOPHAGE) 1000 MG | mouth 2 times daily | | | | | e | | tablet | (with breakfast & | | | | | | | | dinner). | | | | | | + + +--------+---------+------+------+-------+ | Marinette 3 1000 MG | Take 2,000 mg by | | | | | Activ | | CAPS | mouth Daily. | | | | | e | + + +--------+---------+------+------+-------+ | magnesium oxide | Take 400 mg by mouth | | | | | Activ | | (MAG-OX) 400 mg | 2 times daily. | | | | | e | | tablet | | | | | | | + + +--------+---------+------+------+-------+ | metolazone | TAKE ONE TABLET BY | 10 | 5 | 10/1 | | Activ | | (ZAROXOLYN) 2.5 mg | MOUTH EVERY DAY | tablet | | 2/20 | | e | | tablet | NEEDED ( MORE THEN 5 | | | 15 | | | | | POUNDS WEIGHT GAIN | | | | | | | | IN LESS THEN 7 DAYS) | | | | | | + + +--------+---------+------+------+-------+ | insulin aspart | Inject 18 Units/hr | | | | | Activ | | (NOVOLOG) 100 | under the skin | | | | | e | | units/mL | continuous. SLIDING | | | | | | | subcutaneous pump | SCALE | | | | | | | infusion | | | | | | | + + +--------+---------+------+------+-------+ | meclizine | One tablet by mouth | 30 | 1 | 09/0 | | Activ | | (ANTIVERT) 25 mg | every 8-12 hours as | tablet | | 2/20 | | e | | tablet | needed for | | | 16 | | | | | dizziness/vertigo | | | | | | + + +--------+---------+------+------+-------+ | fenofibrate | Take 145 mg by mouth | | | 02/2 | | Activ | | (TRICOR) 145 mg | Daily. | | | 2/20 | | e | | tablet | | | | 17 | | | + + +--------+---------+------+------+-------+ | raNITIdine | Take 150 mg by mouth | | | 02/2 | | Activ | | (ZANTAC) 150 mg | Daily. | | | 2/20 | | e | | tablet | | | | 17 | | | + + +--------+---------+------+------+-------+ | FREESTYLE LITE | | | | 04/2 | | Activ | | strip | | | | 4/20 | | e | | | | | | 17 | | | + + +--------+---------+------+------+-------+ | LANTUS SOLOSTAR | Inject 44 Units | | | 04/2 | | Activ | | 100 UNIT/ML | under the skin | | | 4/20 | | e | | injection (pen) | nightly. | | | 17 | | | + + +--------+---------+------+------+-------+ | UNIFINE PENTIPS | | | | 04/2 | | Activ | | 31G X 8 MM | | | | 4/20 | | e | | | | | | 17 | | | + + +--------+---------+------+------+-------+ | gabapentin | 1 tablet 3 times a | | | 09/0 | | Activ | | (NEURONTIN) 300 mg | day and 2 tabs at | | | 5/20 | | e | | capsule | bed time | | | 17 | | | + + +--------+---------+------+------+-------+ | lisinopril | TAKE ONE TABLET BY | 180 | 3 | 04/3 | | Activ | | (PRINIVIL, ZESTRIL) | MOUTH TWICE A DAY | tablet | | 0/20 | | e | | 10 mg tablet | | | | 18 | | | + + +--------+---------+------+------+-------+ | potassium chloride | TAKE ONE TABLET BY | 270 | 3 | 05/3 | | Activ | | (K-DUR) 20 mEq ER | MOUTH TWICE A DAY | tablet | | 0/20 | | e | | tablet | TAKE AN ADDITIONAL | | | 18 | | | | | TABLET ON DAYS EXTRA | | | | | | | | BUMETANIDE IS TAKEN | | | | | | + + +--------+---------+------+------+-------+ | bumetanide (BUMEX) | TAKE ONE TABLET BY | 180 | 3 | 08/3 | | Activ | | 1 mg tablet | MOUTH TWICE A DAY. | tablet | | 0/20 | | e | | | TAKE AN ADDITIONAL | | | 18 | | | | | TABLET TWO TIMES A | | | | | | | | DAY FOR FLUID | | | | | | | | RETENTION. | | | | | | + + +--------+---------+------+------+-------+ | rosuvastatin | TAKE 1 TABLET BY | 90 | 3 | 08/3 | | Activ | | (CRESTOR) 40 MG | MOUTH NIGHTLY | tablet | | 0/20 | | e | | tablet | | | | 18 | | | + + +--------+---------+------+------+-------+ | aspirin 81 MG | Take 81 mg by mouth | | | | | Activ | | tablet | 2 times daily. | | | | | e | + + +--------+---------+------+------+-------+ | | Take 1 capsule by | | | | | Activ | | butalbital-acetamino | mouth 4 times daily | | | | | e | | ubbe-bjcnarke-zcbgnv | as needed. | | | | | | | e (FIORICET WITH | | | | | | | | CODEINE) | | | | | | | | [phone] MG per | | | | | | | | capsule | | | | | | | + + +--------+---------+------+------+-------+ | OSVALDO MISHRA | Inject 300 Units | | | 10/1 | | Activ | | 300 UNIT/ML | under the skin | | | 9/20 | | e | | concentrated | Daily. | | | 18 | | | | injection (pen) | | | | | | | + + +--------+---------+------+------+-------+ | ergocalciferol | Take 50,000 Units by | | | 10/0 | | Activ | | (VITAMIN D-2) 50,000 | mouth Daily. | | | 4/20 | | e | | units capsule | | | | 18 | | | + + +--------+---------+------+------+-------+ | EPINEPHrine | epinephrine 0.3 | | | | | Activ | | auto-injector 0.3 | mg/0.3 mL injection, | | | | | e | | mg/0.3 mL injection | auto-injector Take | | | | | | | | 1 auto every day by | | | | | | | | injection route prn | | | | | | | | anaphylaxis | | | | | | | | reaction. | | | | | | + + +--------+---------+------+------+-------+ | KIP PETTIT | | | | 10/0 | | Activ | | MISC | | | | 2/20 | | e | | | | | | 18 | | | + + +--------+---------+------+------+-------+ | morphine (MS | Take 30 mg by mouth | | | 10/0 | | Activ | | CONTIN) 30 mg ER | 3 times daily. | | | 20 | | e | | tablet | | | | 18 | | | + + +--------+---------+------+------+-------+ | methylPREDNISolone | methylprednisolone 4 | | | | | Activ | | (MEDROL) 4 mg | mg tablet take 1 | | | | | e | | tablet | tablet by mouth once | | | | | | | | daily for 21 DAYS | | | | | | | | then off for 7 days | | | | | | + + +--------+---------+------+------+-------+ | MICROLET LANCETS | Microlet Lancet | | | | | Activ | | MISC | | | | | | e | + + +--------+---------+------+------+-------+ | nitroglycerin | 0.4 mg. | | | | | Activ | | (NITROSTAT) 0.4 mg | | | | | | e | | SL tablet | | | | | | | + + +--------+---------+------+------+-------+ | QUEtiapine | Take 200 mg by mouth | | | | | Activ | | (SEROQUEL) 200 MG | Daily. | | | | | e | | tablet | | | | | | | + + +--------+---------+------+------+-------+ | spironolactone | Take 25 mg by mouth | | | | | Activ | | (ALDACTONE) 25 mg | Daily. | | | | | e | | tablet | | | | | | | + + +--------+---------+------+------+-------+ | torsemide | Take 20 mg by mouth | | | | | Activ | | (DEMADEX) 20 mg | 4 times daily as | | | | | e | | tablet | needed. | | | | | | + + +--------+---------+------+------+-------+ | digoxin (LANOXIN) | Take 1 tablet by | 30 | 5 | 10/2 | | Activ | | 125 mcg tablet | mouth Daily. | tablet | | 4/20 | | e | | | | | | 18 | | | + + +--------+---------+------+------+-------+ | carvedilol (COREG) | TAKE ONE TABLET BY | 180 | 3 | 11/0 | | Activ | | 12.5 mg tablet | MOUTH TWICE A DAY | tablet | | 6/20 | | e | | | WITH BREAKFAST AND | | | 18 | | | | | DINNER | | | | | | + + +--------+---------+------+------+-------+ Active Problems + + + | Problem | Noted Date | + + + | Chronic systolic heart failure (HCC) | 06/11/2016 | + + + | Implantable defibrillator reprogramming/check | 06/01/2015 | + + + | S/P PTCA (percutaneous transluminal coronary angioplasty) | 01/24/2014 | + + + | Medtronic dual chamber ICD implanted 12/14/13- Dr. Aguilera | 12/14/2013 | + + + + + | Overview: Formatting of this note may be different from the | | original. MODEL NAME MODEL# SERIAL# DATE IMPLANTED GENERATOR | | Medtronic Evera XT [id number] 12/14/2013 ATRIAL LEAD | | Medtronic Capsurefix Novus [id number] 12/14/2013 RV LEAD | | Medtronic Sprint Quattro [id number] 12/14/2013 | | | + + + + + | Routine general medical examination at a [facility] facility | 11/28/2013 | + + + + + | Overview: DEXA: Never | | Colonoscopy: 2008 | | Immunizations: UTD | | Mammo: 2010 | | Prostate: Never | | Occupation: Disabled | | Marital Status: | | Children: 3 | | Exercise: Never | | Sunscreen: Never | | Caffeine: 4 cups per day | | Seatbelt Use: Never | + + + + + | Bipolar disorder (HCC) | 11/28/2013 | + + + | Venous insufficiency of leg | 11/25/2013 | + + + | Hyperlipidemia, mixed LDL goal < 70 | 11/03/2013 | + + + + + | Overview: 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 Gated SPECT reveals a | | thinning and akinesis of inferior wall, overall, left | | ventricular systolic function is severely decreased, LVEF by | | gated SPECT is 33 %. Angiogram done by Dr. Avila on 12/05/2013 | | with a stenting of the right coronary artery with a Promus | | premier drug-eluting stent 4 x 16 mm. Hemodynamically | | insignificant mid left anterior descending artery lesion. 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 Kang showed nonobstructive | | coronary artery disease with mild diffuse disease in LAD, mild | | diffuse disease of RCA, no obstructive stenosis, LVEF 55-60%. [facility] | | 10/14/13, shows [id number]-[id number] coronary artery disease; | | borderline 50% stenosis at the proximal portion of the LAD, | | 50-70% sequential lesions at the proximal portion of the RCA, | | nonischemic dilated cardiomyopathy, coronary circulation is right | | dominant, normal systemic blood pressure, moderately dilated | | left ventricular cavity with normal wall thickness, there is a | | severe global hypokinesis of the left ventricle, overall, left | | ventricular systolic function is severely decreased, LVEF is | | 15-20%. It was decided by Dr. Zheng in consultation with another | | nuclear equipment sales engineer that this was going to be managed medically. Heart | | catheterization done on 11/21/2013 showed single vessel coronary | | disease; 75% sequential stenosis to the proximal portion of the | | RCA. 30-40% stenosis to the proximal portion of the LAD. There is | | a right dominate circulation. Left ventricular cavity is | | markedly dilated. There is a severe global hypokinesis of the | | left ventricle.. LVEF is calculated at <10%. Systemic blood | | pressure is normal. There was successful Angio Seal placement to | | the puncture site in the right femoral artery. | + + + + + | Chronic biventricular systolic congestive heart failure (HCC) | 10/12/2013 | + + + + + | Overview: Echocardiogram 05/18/14, shows normal left | | ventricular size and wall thickness, there is a mild global | | hypokinesis of the left ventricle, overall, left ventricular | | systolic function is mildly decreased, LVEF is 45-50 %, grade 1 | | left ventricular diastolic dysfunction, normal valvular | | structure, normal right-sided pressure, normal IVC with normal | | respiratory collapse, when compared to an echocardiogram in | | , left ventricular systolic function is significantly | | improved but not quite yet normalized.Echocardiogram of 10/13/13 | | showed 4 chamber dilatation.A mildly dilated left ventricular | | cavity with normal wall thickness. There is a severe global | | hypokinesis of the left ventricle. Overall, left ventricular | | systolic function is severely decreased. LVEF is 15-20%. A mildly | | dilated right ventricular cavity with normal wall thickness and | | a moderately decreased right ventricular systolic function. Mild | | to moderate mitral valve regurgitation.Trace aortic valve | | insufficiency.Mild tricuspid valve regurgitation. Normal | | right-sided pressure Normal IVC with a normal respiratory | | collapse Last Assessment & Plan: Had normal EF of 55-60% in | | 2009, but no recent echo, unknown if this is systolic or | | diastolic heart failure - will check echo in AM.Reported wgt gain | | of 30 pounds since symptoms started, and appears significantly | | overloaded on exam. Has been resistant to outpatient therapy, | | and unable to function at home, so do believe inpatient admission | | is appropriate. Start furosemide 80 mg IV bid with goal 1-2 L | | net neg daily. | + + + + + | Diabetes mellitus (HCC) | 10/12/2013 | + + + + + | Last Assessment & Plan: Poorly controlled recently. Continue | | glimepiride, stop metformin because of acute heart failure, | | place on moderate sliding scale. Check A1C in AM. Medications | | are not helping with control - will stop methylprednisolone | | because see no indication for this. Ideally, also would get on | | smaller doses (or stop) amitriptyline and olanzapine because this | | can worsen obesity/blood sugars. | + + +---------+ + | Smoking | 10/12/2013 | +---------+ + + + | Last Assessment & Plan: Advised and discussed smoking | | cessation. He is willing to try, doesn't want nicotine patch. | | Emphasized importance of cessation given his multiple other risk | | factors for NV/stroke. | + + + + + | Obesity (BMI 30-39.9) | 10/12/2013 | + + + + + | Last Assessment & Plan: Advised weight loss. | + + + + + | Anxiety and depression | 10/12/2013 | + + + + + | Last Assessment & Plan: Symptoms well-controlled recently. | | Decrease amitriptyline from 150 to 100 mg daily, cont olanzapine. | | F/u with outpt doctor. | + + + + + | Chronic pain | 10/12/2013 | + + + + + | Last Assessment & Plan: Continue morphine, PRN | | hydrocodone/APAP. | + + + + + | Chest pain rule out NV. | 10/12/2013 | + + + + + | Last Assessment & Plan: Nontypical chest pain, but does have | | many risk factors, so will check troponins overnight, continue | | aspirin and carvedilol. Negative angiogram in 2009. Check | | lipids in AM. | |Check lipids in AM. | + + + +---+ | Cardiomyopathy (HCC) | | + +---+ + + | Overview: Echocardiogram 08/06/2016 shows normal left | | ventricular size, wall thickness and motion, preserved left | | ventricular systolic function. LVEF is 50-55%, grade 1 left | | ventricular diastolic dysfunction, pacemaker lead in right | | ventricle, normal valvular structure, normal IVC with normal | | respiratory collapse, normal right-sided pressure, when compared | | to echocardiography on 11/28/14, no significant | | changes.Echocardiogram 11/28/14 Normal left ventricular size, | | wall thickness and motion. Preserved left ventricular systolic | | function. LVEF is 50-55%. Grade 1 left ventricular diastolic | | dysfunction. Pacemaker lead in the right ventricle. Normal | | valvular structure. Normal right-sided pressure. Normal IVC with | | normal respiratory collapse. When compared to echocardiography | | on 05/18/14, left ventricular systolic function is now | | normalized.Status post ICD implantation 11/2013. | + + Encounters +--------+ + + + + | Date | Type | Specialty | Care Team | Description | +--------+ + + + + | 02/26/ | Telephone | | Lg, | Medication Prior | | 2019 | | | [facility] | Authorization | | | | | | (Rosuvastatin) | +--------+ + + + + | 02/14/ | Implant | | Mary Rollins, | Remote Device | | 2017 | Monitor | | MD | Interrogation | | | | | | (Primary Dx); | | | | | | Medtronic dual | | | | | | chamber ICD | | | | | | implanted 12/14/13- | | | | | | Dr. Aguilera; | | | | | | Cardiomyopathy, | | | | | | unspecified type | | | | | | (HCC) | +--------+ + + + + from Last 3 Months Immunizations + + + + | Name | Dates Previously Given | Next Due | + + + + | INFLUENZA PF | 11/24/2013 | | | TRIVALENT(PED/ADOL/A | | | | DULFranki)XIOMARA | | | + + + + | PNEUMOCOCCAL, | 02/16/2011 | | | UNSPECIFIED | | | | FORMULATION | | | + + + + | TDAP, (ADOL/ADULT) | 02/17/2012 | | + + + + Family History + + +------+ + | Medical History | Relation | Name | Comments | + + +------+ + | Heart disease | Brother | | | + + +------+ + | High cholesterol | Brother | | | + + +------+ + | Diabetes | Father | | | + + +------+ + | Early | Father | | | + + +------+ + | Heart disease | Father | | | + + +------+ + | High blood pressure | Father | | | + + +------+ + | Other (see comment) | Father | | | + + +------+ + | Vision loss | Father | | | + + +------+ + | Cancer | Mother | | melanoma/breast cancer/uterine | + + +------+ + | Depression | Mother | | | + + +------+ + | Early | Mother | | | + + +------+ + | Heart disease | Mother | | | + + +------+ + | High cholesterol | Mother | | | + + +------+ + | Other (see comment) | Mother | | | + + +------+ + | Other (see comment) | Sister | | brain tumor | + + +------+ + + +---------+ + + | Relation | Name | Status | Comments | + +---------+ + + | | Micky | Alive | | + +---------+ + + | | Omar | Alive | | + +---------+ + + | | Maxwell | Alive | | + +---------+ + + | | | | | + +---------+ + + | Daughter | | Alive | | + +---------+ + + | Father | | | | + +---------+ + + | Mother | | | | + +---------+ + + | Sister | Libertad | Alive | | + +---------+ + + | Sister | Kina | Alive | | + +---------+ + + | Sister | Lanny | Alive | | + +---------+ + + | Sister | | | | + +---------+ + + | Son | | Alive | | + +---------+ + + Social History + + + [...] + + + | Blood Pressure | 118/70 | 12/09/20171306 PDT | + + + + | Pulse | 80 | 12/09/20171306 PDT | + + + + | Temperature | 37.2 C (98.9 F) | 04/22/20141747 PST | + + + + | Respiratory Rate | 18 | 12/09/20171306 PDT | + + + + | Oxygen Saturation | 95% | 04/22/20141942 PST | + + + + | Inhaled Oxygen | - | - | | Concentration | | | + + + + | Weight | 99.9 kg (220 lb 3.8 | 12/09/20171306 PDT | | | oz) | | + + + + | Height | 175.3 cm (5' 9") | 12/09/20171306 PDT | + + + + | Body Mass Index | 32.52 | 12/09/2017 1307 PDT | + + + + Plan of Treatment +--------+ + + + + | Date | Type | Specialty | Care Team | Description | +--------+ + + + + | 05/16/ | Implant | | Mary Rollins, | Remote Device | | 2019 | Monitor | | MD [facility] [place] | Interrogation | | | | | [facility], | (Primary Dx); | | | | | [phone] | Medtronic dual | | | | | [phone] | chamber ICD | | | | | | implanted 12/14/13- | | | | | | Dr. Aguilera; | | | | | | Cardiomyopathy, | | | | | | unspecified type | | | | | | ([facility]) | +--------+ + + + + | 05/27/ | Appointment | | Lg, | | | 2019 | | | [facility] [address] | | | | | | [place], | | | | | | [place] [address] | | | | | | [phone] | | | | | | | | +--------+ + + + + | 07/07/ | Procedure | | | | | 2018 | visit | | | | +--------+ + + + + | 07/07/ | Office | | Lg, | | | 2018 | Visit | | [facility] [address] | | | | | | [place], | | | | | | [place] [address] | | | | | | [phone] | | | | | | | | +--------+ + + + + + + + + + | Health Maintenance | Due Date | Last Done | Comments | + + + + + | Hepatitis C | | | | | Screening | 9 | | | + + + + + | Diabetic Eye Exam | | | | | | 7 | | | + + + + + | Diabetic Foot Exam | | | | | | 7 | | | + + + + + | Colorectal Cancer | | | | | Screening | 9 | | | | (Colonoscopy) | | | | + + + + + | Vaccine: Zoster (1 | | | | | of 2) | 9 | | | + + + + + | Hemoglobin A1c Q6 | | 11/27/2017, 11/05/2016, | | | Months | 9 | 10/04/2015, Additional history | | | | | exists | | + + + + + | Vaccine: | | 02/17/2012 | | | Dtap/Tdap/Td (2 - | 3 | | | | Td) | | | | + + + + + | Vaccine: | Completed | 12/10/2015, 12/20/2014 | | | Pneumococcal 19-64 | | | | | (PPSV23 only) Medium | | | | | Risk | | | | + + + + + | Vaccine: Influenza | Completed | 11/11/2017, 12/10/2015, | | | | | 12/10/2015, Additional history | | | | | exists | | + + + + + Implants + +--------+--------+ +--------+--------+--------+ | Implanted | Type | Area | Manufacture | Device | Expira | Model | | | | | r | | tion | / | | | | | | Identi | Date | Serial | | | | | | fier | | / Lot | + +--------+--------+ +--------+--------+--------+ | Medtronic Single Lead Loop | Implan | Left: | | | | EVERA | | RecorderImplanted: Qty: 1 on | table | Chest | | | | XT DR | | 12/14/2013 by Martin Aguilera, | Loop | Wall | | | | /[id number] | | MD PhD | Record | | | | | D4 / | | | er | | | | | | + +--------+--------+ +--------+--------+--------+ Procedures + +--------+ + + + | Procedure Name | Priori | Date/Time | Associated Diagnosis | Comments | | | ty | | | | + +--------+ + + + | DEVICE | Routin | 04/23/2018 | Remote Device | Results for this | | INTERROGATION- | e | 0000 PST | Interrogation | procedure are in [...] this | | INTERROGATION- | e | 2359 PST | Interrogation | procedure are in the | | REMOTE | | | Medtronic dual | results section. | | | | | chamber ICD | | | | | | implanted 12/14/13- | | | | | | Dr. Aguilera | | | | | | Cardiomyopathy, | | | | | | unspecified type | | | | | | ([facility]) | | + +--------+ + + + from Last 3 Months Results Device Interrogation - Remote (04/23/2018)Only the most recent of 2 results within the time period is included. + + + | Narrative | Performed At | + + + | Mary | [facility] | | MD Ayo 04/23/2018 15:13Date of Remote Interrogation: | | | 04/20/18 Refer to Paceart documentation and remote PDF scanned into EPIC | | | for remote interrogation results. Data collected by CHANTEL Al | | | LUZ ELENA PAK Presenting rhythm: atrial sensed ventricular sensed with | | | rate at 67-68 beats.0 mode switch episodes accounting for 0% of the | | | time.0 atrial high rate episodes. 0 ventricular high rate episodes. | | | 9.4 PVC singles/hour<0.1 PVC runs/hourHistogram good Battery | | | longevity 6.8 years.Apparent normal and stable device | | | function.Device interrogation due in office in 4/30/19Patient notified | | | and denies symptoms. | | |0 ventricular high rate episodes. | | |9.4 PVC singles/hour | | |<0.1 PVC runs/hour | | |Histogram good Battery longevity 6.8 years. | | |Apparent normal and stable device function. | | |Device interrogation due in office in 06/15/18 | | |Patient notified and denies symptoms. | | | | | | | | + + + + + | Procedure Note | + + | Mary Rollins MD - 05/16/2018 2143 PDT Date of Remote Interrogation: 04/20/18Refer | | to Hara documentation and remote PDF scanned into [employer] for remote interrogation | | results. Data collected by GRANT ARREOLAresenting rhythm: atrial sensed | | ventricular sensed with rate at 67-68 beats.0 mode switch episodes accounting for 0% of | | the time.0 atrial high rate episodes. 0 ventricular high rate episodes. 9.4 PVC | | singles/hour<0.1 PVC runs/hourHistogram good Battery longevity 6.8 years.Apparent | | normal and stable device function.Device interrogation due in office in 06/15/18Patient | | notified and denies symptoms. | |9.4 PVC singles/hour | |<0.1 PVC runs/hour | |Histogram good Battery longevity 6.8 years. | |Apparent normal and stable device function. | |Device interrogation due in office in 06/15/18 | |Patient notified and denies symptoms. | + + + +---------+ + + | Performing | Address | City/State/Zipcode | Phone Number | | Organization | | | | + +---------+ + + | [facility] | | | | + +---------+ + + from Last 3 Months Insurance + +--------+ +--------+ +---------+ | Payer | Benefi | Subscriber | Type | Phone | Address | | | t Plan | ID | | | | | | / | | | | | | | Group | | | | | + +--------+ +--------+ +---------+ | [employer] | MODA | [id number] | Medica | [phone] | | | MEDICAID HMO | HEALTH | | id | [phone] | | | | MDCD | | | | | | | [place]MO [place] | | | | | + +--------+ +--------+ +---------+ + +--------+ +--------+ + + | Guarantor Name | Accoun | Relation to | Date | Phone | Billing Address | | | t Type | Patient | of | | | | | | | | | | + +--------+ +--------+ + + | MIGUELANGEL TRACY | Person | Self [birth year] | Home: | [address] | | | al/Fam | | 1960 | [phone] | [place] [address] | | | akshat | | | [phone] | | + +--------+ +--------+ + +
--- OUTSIDE RECORDS SUMMARY | ~2018-04-30 | XMS | Encounter Summary ---
Demographics + + + | Address | [address] | | | [place] [address] | + + + | Home Phone | | + + + | Preferred Language | Unknown | + + + | Marital Status | | + + + | Hindu Affiliation | Unknown | + + + | Race | Unknown | + + + | Ethnic Group | Unknown | + + + Author + + + | Author | [facility] | + + + | Organization | [facility] | + + + | Address | [...] Team Providers + +------+ + | Care Fish Culturist Name | Role | Phone | + +------+ + | Donnell Ramirez DO | PCP | | + +------+ + Reason for Visit + + + | Reason | Comments | + + + | Medication Refill | | + + + Encounter Details +--------+--------+ + + + | Date | Type | Department | Care Team | Description | +--------+--------+ + + + | 02/23/ | Refill | [facility] [place] | Krysta Nj NP | Medication Refill | | 2019 | | Cardiology [place] | [address] | | | | | [address] | [place], [place] | | | | | [place], [place] | [address] | | | | | [address] | | | | | | [phone] | | | +--------+--------+ + + + Social History + +-------+ +--------+ [...] as of this encounter Plan of Treatment Not on fileas of this encounter Visit Diagnoses Not on filein this encounter"
--- OUTSIDE RECORDS SUMMARY | ~2018-04-30 | XMS | Encounter Summary ---
Demographics + + + | Address | [address] | | | [place] [address] | + + + | Home Phone | | + + + | Preferred Language | Unknown | + + + | Marital Status | | + + + | Amish Affiliation | Unknown | + + + | Race | Unknown | + + + | Ethnic Group | Unknown | + + + Author + + + | Author | [facility] | | | and Destinana | + + + | Organization | [facility] | | | and Destinana [...] [place] | | | | | [address] | | + + + + + Care Team Providers + +------+ + | Care Contact Centre Supervisor Name | Role | Phone | + [...] + + | 02/26/ | Telephone | [facility] | Lg, | Medication Prior | | 2019 | | CARDIOLOGY [address] | [facility] [address] | Authorization | | | | [place], | [place], | (Rosuvastatin) | | | | [place] [address] | [place] [address] | | | | | [phone] | [phone] | | | | | | | [...] Dx); | | | | | [place] [address] | Medtronic dual | | | | | [phone] | chamber ICD | | | | [...] W | | | | | | [place], | | | | | | [place] [address] | | | | | | [phone] | | | | | | | | +--------+ + + + + | 07/07/ | Procedure | Cardiology | | | | 2018 | visit | | | | +--------+ + + + + | 07/07/ | Office | Cardiology | Lg, | | | 2018 | Visit | | [facility] [address] | | | | | | [place], | | | | | | [place] [address] | | | | | | [phone] | | | | | | | | +--------+ + + + + as of this encounter Visit Diagnoses Not on filein this encounter"
--- OUTSIDE RECORDS SUMMARY | ~2018-04-30 | XMS | Clinical Summary ---
Demographics + + + | Address | [address] | | | [place] [address] | + + + | Home Phone | | + + + | Preferred Language | Unknown | + + + | Marital Status | | + + + | Scientology Affiliation | Unknown | + + + | Race | Unknown | + + + | Ethnic Group | Unknown | + + + Author + + + | Author | [facility] | | | and Destinana | + + + | Organization | [facility] | | | and Destinana [...] [place] | | | | | [address] | | + + + + + Care Team Providers + +------+ + | Care Leather Worker Name | Role | Phone | + [...] | | | + + +--------+---------+------+------+-------+ | Miramonte 3 1000 MG | Take 2,000 mg [...] | | | | e | | [id number] | as needed. 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 [facility] | | 10/14/13, shows rfdd-ns-opdiklur coronary artery disease; | | borderline 50% [...] Zheng in consultation with another | | securities settlement processor that this was going to be managed [...] multiple other risk | | factors for [place]/stroke. | + + + + + | [...] + + | Chest pain rule out [place]. | 10/12/2013 | + + + + [...] Interrogation | | | | | [facility] [place], | (Primary Dx); | | | | | [place] [address] | Medtronic dual | | | | | [phone] | chamber ICD | | | | | | implanted 12/14/13- | | | | | | Dr. Aguilera; | | | | | | Cardiomyopathy, | | | | | | unspecified type | | | | | | ([facility]) | +--------+ + + + + | 05/27/ | Appointment | | Lg, | | | 2019 | | | [facility] [address] | | | | | | [place], | | | | | | [place] [address] | | | | | | [phone] | | | | | | | | +--------+ + + + + | 07/07/ | Procedure | | | | | 2018 | visit | | | | +--------+ + + + + | 07/07/ | Office | | Lg, | | | 2018 | Visit | | [facility] [address] | | | | | | [place], | | | | | | [place] [address] | | | | | | [phone] | | | | | | | [...] type | | | | | | ([facility]) | | + +--------+ + + + [...] + | Mary Rollins MD - 05/16/2018 8852 PDT Date of Remote Interrogation: 04/20/18Refer | | to [employer] documentation and remote PDF scanned into [employer] for remote interrogation | | results. Data [...] | [employer] | MODA | [id number] | Medica | [phone] | | | MEDICAID HMO | HEALTH [...] | 1960 | [phone] | [place] [address] | | | [place] | | | [phone] | | + +--------+ +--------+ + +
--- OUTSIDE RECORDS SUMMARY | ~2018-04-30 | XMS | Clinical Summary ---
Demographics + + + | Address | [address] | | | [place] [address] | + + + | Home Phone | | + + + | Preferred Language | Unknown | + + + | Marital Status | Single | + + + | Orthodoxy Affiliation | UNK | + + + | Race | White | + + + | Ethnic Group | Not or | + + + Author + + + | Organization | Unknown | + + + | Address | Unknown | + + + | Phone | Unavailable | + + + Care Team Providers + +------+ + | Care Dairy Lab Technician Name | Role | Phone | + +------+ + PP | Unavailable | + +------+ + Source Comments DAVIAN is fully live on both [facility] and [facility] InPatient.[facility] Allergies Not on File Current Medications Not [...]
--- OUTSIDE RECORDS SUMMARY | ~2018-04-30 | XMS | Encounter Summary ---
Demographics + + + | Address | [address] | | | [place] [address] | + + + | Home Phone | | + + + | Preferred Language | Unknown | + + + | Marital Status | | + + + | Methodist Affiliation | Unknown | + + + | Race | Unknown | + + + | Ethnic Group | Unknown | + + + Author + + + | Author | [facility] | + + + | Organization | [facility] | + + + | Address | [...] Team Providers + +------+ + | Care Timber Feller Name | Role | Phone | + [...] + | 02/23/ | Refill | [facility] [place] | Krysta Nj NP | Medication Refill | | 2019 | | Cardiology [place] | [address] | | | | | [address] | [place], [place] | | | | | [place], [place] | [address] | | | | | [address] | | | | | | [phone] | | | +--------+--------+ + + + [...]
[~2018-04-30 19:35] MED LIST changes: +LEVAQUIN500 MG PO; +METHYLPREDNISOLO4 M1 PO
--- OUTSIDE RECORDS SUMMARY | 2018-04-30 19:38 | XMS ---
PreManage Notification: MIGUELANGEL TRACY Security Track Maintainer Events No recent Security Events currently on file CRITERIA MET - HARINI CARE PROVIDERS Avelino Crawford Diagnostic Medical Sonographer/In Shop Service Technician 01/13/2011-Current PHONE: [phone] Avelino Crawford Primary Care 01/13/2011-Current PHONE: [phone] Robin has no Care Guidelines for this patient. Yoselyn VISIT COUNT (12 MO.) 1 MICHOACANO Perkins TOTAL 1 NOTE: Visits indicate total known visits. ED/UCC VISIT TRACKING (12 MO.) 04/30/2018 19:[address] [facility] [place] TYPE: Emergency COMPLAINT: - COUGH,DIFFICULTY BREATHING INPATIENT VISIT TRACKING (12 MO.) No inpatient visits to display in this time frame [id number]
--- NOTE | 2018-05-01 20:37 | EKG ---
[facility] [address] [facility] [place] [address] Signed Sinus rhythm with 1st degree AV block Possible Left atrial enlargement Incomplete right bundle branch block Borderline ECG When compared with ECG of 24-APR-2017 16:20, Incomplete right bundle branch block is now present Confirmed by DAVION PRETTY DO ([id number]) on 05/01/2018 8:36:50 PM Electronically Signed By: DAVION PRETTY DO 05/01/18 2037 PATIENT NAME: MIGUELANGEL TRACY SR Electrocardiogram DATE OF : 58 PHYSICIAN: DAIVON PRETTY DO REPORT #: [id number] REPORT IS CONFIDENTIAL AND NOT TO BE RELEASED WITHOUT AUTHORIZATION
== END 2018-04-30 21:04 | disposition home or self-care (01) ==
LOC: ED 19:35
DX: J20.9 Acute bronchitis, unspecified (principal); E11.9 Type 2 diabetes mellitus without complications; I25.2 Old myocardial infarction; I25.10 Atherosclerotic heart disease of native coronary artery without angina pectoris; E78.5 Hyperlipidemia, unspecified; F31.9 Bipolar disorder, unspecified; I42.9 Cardiomyopathy, unspecified; I50.22 Chronic systolic (congestive) heart failure; F17.200 Nicotine dependence, unspecified, uncomplicated; Z95.5 Presence of coronary angioplasty implant and graft; Z79.4 Long term (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; Z79.82 Long term (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; Z79.899 Other long term (current) drug therapy
CPT/HCPCS: 71045; 80053; 83735; 83880; 84484; 85025; 93005; 93010; 99284-25

== ENCOUNTER 2018-08-16 22:03 | Emergency (ER) | payer OTHER ==
[~2018-08-16] VITALS: Ht 175.3 cm; Wt 97.5 kg
--- OUTSIDE RECORDS SUMMARY | 2018-08-16 22:06 | XMS ---
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 Care History Medical/Surgical 05/03/2018 [facility] - [facility] CONTACTED PATIENT- PATIENT DOES NOT HAVE A PCP CURRENTLY. - [facility] PROVIDED [facility] CONTACT TO SCHEDULE AN APT TO BECOME ESTABLISHED WITH A PROVIDER. - CHW EDUCATED ON ED VS PCP USAGE AND DISCUSSED THE IMPORTANCE OF ESTABLISHING CARE WITH A PROVIDER. - PATIENT STATED HE WOULD CONTACT THE CLINIC HE DID NOT WANT ASSISTANCE WITH SETTING UP THE APT. E.D. VISIT COUNT (12 MO.) 2 [facility] TOTAL 2 NOTE: Visits indicate total known visits. ED/UCC VISIT TRACKING (12 MO.) 08/16/2018 22:03 [facility] [place] TYPE: Emergency COMPLAINT: - BLOOD SUGAR PROBLEM 04/30/2018 19:36 [facility] TYPE: Emergency COMPLAINT: - COUGH,DIFFICULTY BREATHING DIAGNOSES: - Chronic systolic (congestive) heart failure - joint terminal attack controller (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 - Hyperlipidemia, unspecified - Type 2 diabetes mellitus without complications - joint terminal attack controller (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 - Acute bronchitis, unspecified - Bipolar disorder, unspecified - Cough - Other termite exterminator (current) drug therapy - Atherosclerotic heart disease of [place] coronary artery without angina pectoris - Nicotine dependence, unspecified, uncomplicated - Cardiomyopathy, unspecified - Presence of coronary angioplasty implant and graft - Old myocardial infarction INPATIENT VISIT TRACKING (12 MO.) No inpatient visits to display in this time frame [id number]
[2018-08-16] MEDS ORDERED: HUMALOG100 UNIT/2 SUB-Q (22:19)
[2018-08-16] MEDS ORDERED: LANTUS100 UNITS/ SUB-Q (22:21)
[2018-08-16] MEDS ORDERED: EXCEDRIN EXTRA1 EAC1 PO (22:23)
== END 2018-08-17 00:55 | disposition home or self-care (01) ==
LOC: ED 22:03
DX: E11.649 Type 2 diabetes mellitus with hypoglycemia without coma (principal); D72.829 Elevated white blood cell count, unspecified; I25.2 Old myocardial infarction; F17.200 Nicotine dependence, unspecified, uncomplicated; E78.5 Hyperlipidemia, unspecified; I25.10 Atherosclerotic heart disease of native coronary artery without angina pectoris; F31.9 Bipolar disorder, unspecified; I50.22 Chronic systolic (congestive) heart failure; Z79.899 Other long term (current) drug therapy; Z95.5 Presence of coronary angioplasty implant and graft; Z79.4 Long term (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; Z79.82 Long term (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
CPT/HCPCS: 71046; 80053; 81001; 84484; 85025; 99284-25

== ENCOUNTER 2019-03-19 01:17 | Observation (INO) | payer OTHER ==
[~2019-03-19] VITALS: Ht 175.3 cm; Wt 91.6 kg
[~2019-03-19 01:17] MED LIST changes: +EXCEDRIN EXTRA1 EAC1 PO; +HUMALOG100 UNIT/2 SUB-Q; +LANTUS100 UNITS/ SUB-Q
[2019-03-19] MEDS ORDERED: TRULICITY1.5 MG/0.5 SUB-Q (01:40)
--- OUTSIDE RECORDS SUMMARY | 2019-03-19 03:26 | XMS ---
PreManage Notification: MIGUELANGEL TRACY Security Acid Conditioner Events No recent Security Events currently on file CRITERIA MET - Group Notification - [facility] - Has Care Guidelines - PDMP CARE PROVIDERS Avelino Crawford Pet Trainer/Webbing Weaver 10/17/2018-Current PHONE: [phone] Avelino Crawford Primary Care 10/17/2018-Current PHONE: [phone] Robin has no Care Guidelines for this patient. Care History Medical/Surgical 08/17/2018 [facility] CASE MANAGEMENT REFERRAL MADE- PATIENT HAS [facility] AND NO PCP. 05/03/2018 [facility] - [facility] CONTACTED PATIENT- PATIENT DOES NOT [...] THE APT. E.D. VISIT COUNT (12 MO.) 3 [facility] TOTAL 3 NOTE: Visits indicate total known visits. ED/UCC VISIT TRACKING (12 MO.) 03/19/2019 01:18 [facility] [place] TYPE: Emergency COMPLAINT: - VOMITING,DIARRHEA 08/16/2018 22:03 [facility] [place] TYPE: Emergency COMPLAINT: - BLOOD SUGAR PROBLEM DIAGNOSES: - Old myocardial infarction - Chronic systolic (congestive) heart failure - 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 (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 - Athscl heart disease of [place] coronary artery w/o ang pctrs - Other long term care administrator (current) drug therapy - Bipolar disorder, unspecified - Elevated white blood cell count, unspecified - Nicotine dependence, unspecified, uncomplicated - Hyperlipidemia, unspecified - 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 (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 - Presence of coronary angioplasty implant and graft - 1 Type 2 diabetes mellitus with hypoglycemia without coma 04/30/2018 19:[address] [facility] [place] TYPE: Emergency COMPLAINT: - COUGH,DIFFICULTY BREATHING DIAGNOSES: - Chronic systolic (congestive) heart failure - 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 (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 - Hyperlipidemia, unspecified - 1 Type 2 diabetes mellitus without complications - long term care administrator (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 - Acute bronchitis, unspecified - Bipolar disorder, unspecified - Cough - Other residential (current) drug therapy - Athscl heart disease of [place] coronary artery w/o ang pctrs - Nicotine dependence, unspecified, uncomplicated - Cardiomyopathy, unspecified - Presence of coronary angioplasty implant and graft - Old myocardial infarction INPATIENT VISIT TRACKING (12 MO.) No inpatient visits to display in this time frame [email or web address]
--- NOTE | 2019-03-19 05:57 | NUR ---
0445 PATIENT ARRIVED VIA STRETCHER. TRANSFERED INDEPENDENTLY TO BED. PATIENT REPORTS BEING NAUSEOUS. SITS AT EDGE OF BED. HR 100-110. VS DOCUMENTED. 0515 PATIENT PROVIDED WITH PRN COMPAZINE AND IV FLUIDS STARTED. PATIENT ALERT AND ORIENTED. TOLERATING ROOM AIR. LUNGS ARE CLEAR WITH THE EXCEPTION OF SOME COARSENESS IN LLL. PATIENT DENIES FEELING SOB. ABD IS MODERATELY DISTENDED AND TENDER. HYPOACTIVE BOWEL SOUNDS THROUGHOUT. PATIENT REPORTS LOOSE STOOLS THE LAST THREE DAYS. UNABLE TO EAT OR DRINK FOR 3 DAYS, INCLUDING HIS MEDICATIONS. PATIENT HAS 7/10 BACK PAIN, WHICH HE REPORTS HIS "NORMAL" LEVEL OF PAIN. PATIENT IS DUE TO VOID, DENIES NEED AT THIS TIME. LOWER EXTREMITITES ARE COOL AND PALE, NO EDEMA.
--- NOTE | 2019-03-19 06:04 | NUR ---
PATIENT RESTING IN BED. REPORTS IMPROVED GI UPSET. NO VOMITING SINCE ARRIVAL. IV FLUIDS PER ORDER, SITE WNL. DENIES NEED TO VOID. VS STABLE.
--- NOTE | 2019-03-19 08:40 | NUR ---
PT GIVEN ATIVAN AND ZOFRAN FOR NAUSEA, 50 ML OF EMISIS. PT IS AWAKE AND ALERT X4, DENIES SOB. IV SITE IS INTACT, FLUSHES EASILY, NO REDNESS OR SWELLING NOTED. PT DENIES NEED TO VOID AT THIS TIME, IS AWARE THAT URINE SAMPLE IS NEEDED.
--- NOTE | 2019-03-19 09:32 | NUR ---
PT GIVEN IV COMPAZINE FOR INCREASE IN NAUSEA. SPOUSE, COY, IS AT THE BEDSIDE. MD HAS DISCUSSED PLAN OF CARE WITH BOTH PT AND .
--- NOTE | 2019-03-19 10:32 | NUR ---
PT GIVEN COREG PO TABS, ABLE TO SWALLOW EASILY WITH SMALL SIPS OF WATER. PT REQUESTS AND IS GIVEN MORE ICE CHIPS. PT IS ALERT AND ORIENTED X4 WATCHING TV IN BED.
--- NOTE | 2019-03-19 10:51 | NUR ---
PT GIVEN PO OXYCODONE 5 MG FOR REPORTED BACK/NECK PAIN OF 7/10. PT ABLE TO SWALLOW PILL EASILY WITH A SIP OF WATER. PT ABLE TO VOID 225 ANGELITA URINE INTO URINAL. AMBULATED TO THE TOILET, REPORTES SMALL AMOUNT OF LIQUID STOOL. PT BACK TO BED.
--- NOTE | 2019-03-19 11:15 | NUR ---
PT GIVEN IV REGLAN FOR REPORTED INCREASE IN NAUSEA. IV SITE IS INTACT, NO REDNESS OR SWELLING NOTED, FLUIDS AND FLUSHES INFUSE EASILY.
--- NOTE | 2019-03-19 12:37 | NUR ---
PT AWAKE AND ALERT, REPORTS SOME INCREASE IN NAUSEA, 1 MG IV ATIVAN GIVEN. PT DENIES PAIN ABOVE BASELINE AT THIS TIME. PT GIVEN 5 UNITS INSULIN FOR BG OF 229. PT DENIES SOB. TYLER ICE CHIPS PO.
--- NOTE | 2019-03-19 14:33 | NUR ---
PT GIVEN IV COMPAZINE FOR SLIGHT INCREASE IN NAUSEA. PT DENIES SOB AT THIS TIME. ALSO DENIES NEED TO VOID. PT IV SITES ARE INTACT, NO REDNESS OR SWELLING NOTED AT EITHER, FLUIDS AND FLUSHES INFUSE EASILY. PT IS ALERT AND ORIENTED X4, FALLS ASLEEP EASILY.
--- NOTE | 2019-03-19 16:45 | NUR ---
ADMINISTERED 10MG OF REGLAN IV TO PT. GIVEN OVER 6MIN VIA IV PUMP. PT TOLERATED WELL. STATES NAUSEA IS BETTER CONTROLLED. CLEAR LIQUID TRAY IS ORDERED FOR DINNER, PT IS NIBBLING ON CRACKERS.
--- NOTE | 2019-03-19 18:00 | NUR ---
PT UP TO SHOWER WITH ACADEMIC SUPPORT CENTER DIRECTOR D/T DIRTY SHORTS. CLOTHES CHANGED. HAIR BRUSHED. PT ASKED FOR A CLEAR LIQUID TRAY, RN GAVE HIM BROTH, JELLO, AND JUICE. PT IS SITTING ON EDGE OF BED WITH HIS CLEAR LIQUIDS. PT REQUESTED OXY, GIVEN WITH GOOD RESULTS. ATIVAN DUE AT 1830.
--- NOTE | 2019-03-19 19:26 | NUR ---
ANSWERED PATIENT'S CALL LIGHT. I WENT AND GOT HIM A NEW GOWN AND PAJAMA BOTTOMS AND SOME NEW UNDERWEAR. HE GOT INTO THE SHOWER. I SET IT UP. WHEN IN AND CHECKED ON HIM TO MAKE SURE HE WAS OK. PATIENT IS NOW SLEEPING IN HIS BED.
--- NOTE | 2019-03-19 20:02 | NUR ---
REPORT RECEIVED FROM DAY SHIFT RN. PT LYING IN BED, ALERT AND ORIENTED WATCHING TV. DENIES NEEDS AT THIS TIME. CALL LIGHT IN REACH.
--- NOTE | 2019-03-19 21:30 | NUR ---
EVENING ASSESSMENT COMPLETE. PM MEDS GIVEN WITHOUT DIFFICULTY. PRN GIVEN FOR NAUSEA. PRN BREATHING TX GIVEN PER PT REQUEST FOR SLIGHT WHEEZING AND COUGH. FRESH WATER AND ICE CHIPS GIVEN. PT WITHOUT QUESTIONS OR CONCERNS AT THIS TIME. CALL LIGHT IN REACH.
--- NOTE | 2019-03-19 23:59 | NUR ---
PT RESTING IN BED WITH EYES CLOSED, RESPIRATIONS EVEN AND UNLABORED.
--- NOTE | 2019-03-20 01:20 | NUR ---
CALL LIGHT ANSWERED. PT REQUESTING SOMETHING TO EAT. SUGAR FREE JELLO AND DIET SPRITE PROVIDED. PT STATES NAUSEA HAS IMPROVED. NO FURTHER NEEDS AT THIS TIME.
--- NOTE | 2019-03-20 04:20 | NUR ---
CALL LIGHT ANSWERED. FRESH WATER GIVEN. PT MEDICATED WITH PRN FOR PAIN. PT REQUESTING BREATHING TX, EXPIRATORY WHEEZE NOTED. PT ATE ABOUT 50% OF A SANDWICH BOX, TYLER WELL. NO C/O NAUSEA AT THIS TIME.
--- NOTE | 2019-03-20 06:18 | NUR ---
PT RESTING IN BED WITH EYES CLOSED, RR EVEN AND UNLABORED. CALL LIGHT IN REACH.
--- NOTE | 2019-03-20 06:38 | NUR ---
PATIENT IS AWAKE SETTING ON THE EDGE OF HIS BED FRESH WATER GIVEN CALL LIGHT IN REACH.
--- NOTE | 2019-03-20 07:14 | NUR ---
RECIEVED BEDSIDE REPORT FROM LUZ ELENA KEY. PT IS AWAKE AND ALERT, SITTING ON EDGE OF BED. HE REPORTS NO NAUSEA THIS MORNING. STATES HE IS HUNGRY. HE WAS GIVEN THE MENU, KITCHEN PHONE NUMBER, AND EXPLAINED HOW TO ORDER HIS BREAKFAST. PAIN IS CONTROLLED AT THIS TIME. NO S/SX OF OPIOD WITHDRAWAL. VOIDING QS. INDEPENDENT IN ROOM.
--- NOTE | 2019-03-20 08:56 | NUR ---
PT HAS DECLINED NEED FOR NAUSEA MEDS AT THIS TIME. STATES HE IS DOING FINE. WAITING FOR PHARMACY TO VERIFY MAGNISUM ORDER.
--- NOTE | 2019-03-20 10:07 | NUR ---
PT IS RESTING, ON THE PHONE AT THIS TIME. WAS SLEEPING SOUNDLY. IV MAGNESIUM INFUSING. TOLERATING WELL.
--- NOTE | 2019-03-20 11:05 | EKG ---
[facility] [address] [facility] [place] [address] Signed Sinus tachycardia with occasional premature ventricular complexes Right superior axis deviation Pulmonary disease pattern Possible Inferior infarct , age undetermined Abnormal ECG Confirmed by DAVION PRETTY DO ([id number]) on 03/20/2019 11:05:06 AM Electronically Signed By: DAVION PRETTY DO 03/20/19 1105 PATIENT NAME: MIGUELANGEL TRACY Electrocardiogram DATE OF : 58 PHYSICIAN: DAVION PRETTY DO REPORT #: [id number] REPORT IS CONFIDENTIAL AND NOT TO BE RELEASED WITHOUT AUTHORIZATION
[2019-03-20] MEDS ORDERED: TOUJEO SOL300 UNIT/1 SUB-Q (11:40)
[2019-03-20] MEDS ORDERED: FAMOTIDINE40 MG PO (11:40)
--- NOTE | 2019-03-20 12:14 | NUR ---
PT DISCHARGE TEACHING COMPLETE. HE DECLINED LUNCH, DECLINED ACCU CHECK/INSULIN. DISCHARGE VITALS COMPLETE. IV REMOVED X2, CATH INTACT. PT VERBALIZED UNDERSTANDING OF MEDICATIONS AND FOLLOW UP. HE WILL CALL TO SCHEDULE A FOLLOW UP ON THURSDAY WITH HIS OWN PCP. ALL QUESTIONS ANSWERED. ALL PERSONAL BELONGINGS RETURNED. PT'S FAMILY MET HIM UP FRONT.
== END 2019-03-20 12:10 | disposition home or self-care (01) ==
LOC: ED 01:17 → CCU 01:19 → MS 15:35
PROVIDERS: ADMIT Student in an Organized Health Care Education/Training Program
DX: A08.4 Viral intestinal infection, unspecified (principal); M54.5 Low back pain; G89.29 Other chronic pain; E11.9 Type 2 diabetes mellitus without complications; I25.2 Old myocardial infarction; G43.909 Migraine, unspecified, not intractable, without status migrainosus; I50.22 Chronic systolic (congestive) heart failure; F17.200 Nicotine dependence, unspecified, uncomplicated; I42.9 Cardiomyopathy, unspecified; F31.9 Bipolar disorder, unspecified; F11.20 Opioid dependence, uncomplicated; I25.10 Atherosclerotic heart disease of native coronary artery without angina pectoris; E78.5 Hyperlipidemia, unspecified; Z95.810 Presence of automatic (implantable) cardiac defibrillator; Z79.84 Long term (current) use of oral hypoglycemic drugs; Z95.5 Presence of coronary angioplasty implant and graft; Z79.899 Other long term (current) drug therapy; Z79.82 Long term (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
CPT/HCPCS: 71046; 74022; 80048; 80053; 81001; 83036; 83690; 83735; 83880; 85025; 93005; 93010; 96361; 96374; 96375; 96376; 99285-25; 99406; C9113; G0378; J0780; J1815; J2060; J2270; J2405; J2550; J2765; J3475; J3480; J7030; J7060; J7121

== ENCOUNTER 2019-04-12 04:40 | Inpatient (IN) | payer OTHER ==
[~2019-04-12] VITALS: Ht 175.3 cm; Wt 92.5 kg
[~2019-04-12 04:40] MED LIST changes: +FAMOTIDINE40 MG PO; +TOUJEO SOL300 UNIT/1 SUB-Q; +TRULICITY1.5 MG/0.5 SUB-Q
--- OUTSIDE RECORDS SUMMARY | 2019-04-12 04:42 | XMS ---
PreManage Notification: MIGUELANGEL TRACY Security Battery Repairer Events No recent Security Events currently on file CRITERIA MET - Group Notification - [facility] - Has Care Guidelines - PDMP - [facility] - 2 Visits in 30 Days CARE PROVIDERS Avelino Crawford Chartered Financial Analyst/Work Order Clerk 10/17/2018-Current PHONE: [phone] Avelino Crawford Primary Care 10/17/2018-Current PHONE: [phone] Robin has no Care Guidelines for this patient. Care History Medical/Surgical 08/17/2018 [facility] CASE MANAGEMENT REFERRAL MADE- PATIENT HAS [facility] AND NO PCP. 05/03/2018 [facility] - CHW CONTACTED PATIENT- PATIENT [...] THE APT. E.D. VISIT COUNT (12 MO.) [address] [facility] TOTAL 4 NOTE: Visits indicate total known visits. ED/UCC VISIT TRACKING (12 MO.) 04/12/2019 04:40 [facility] TYPE: Emergency COMPLAINT: - ALTERED LOC 03/19/2019 01:18 [facility] TYPE: Emergency COMPLAINT: - VOMITING,DIARRHEA 08/16/2018 22:03 [facility] TYPE: Emergency COMPLAINT: - BLOOD SUGAR PROBLEM DIAGNOSES: - Old myocardial infarction - Chronic systolic (congestive) heart failure - advertising supervisor (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 - Athscl heart disease of [place] coronary artery w/o ang pctrs - Other alf (current) drug therapy - Bipolar disorder, unspecified - Elevated white blood cell count, unspecified - Nicotine dependence, unspecified, uncomplicated - Hyperlipidemia, unspecified - advertising supervisor (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 - Presence of coronary angioplasty implant and graft - 1 Type 2 diabetes mellitus with hypoglycemia without coma 04/30/2018 19:36 [facility] [place] TYPE: Emergency COMPLAINT: - COUGH,DIFFICULTY BREATHING DIAGNOSES: - Chronic systolic (congestive) heart failure - advertising supervisor (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 - Hyperlipidemia, unspecified - 1 Type 2 diabetes mellitus without complications - advertising supervisor (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 - Acute bronchitis, unspecified - Bipolar disorder, unspecified - Cough - Other shower maid (current) drug therapy - Athscl heart disease of [place] coronary artery w/o ang pctrs - Nicotine dependence, unspecified, uncomplicated - Cardiomyopathy, unspecified - Presence of coronary angioplasty implant and graft - Old myocardial infarction INPATIENT VISIT TRACKING (12 MO.) 03/19/2019 01:19 [facility] TYPE: Observation COMPLAINT: - GASTROENTERITIS DIAGNOSES: - advertising supervisor (current) use of oral hypoglycemic drugs - Presence of automatic (implantable) cardiac defibrillator - Cardiomyopathy, unspecified - Migraine, unsp, not intractable, without status migrainosus - Hyperlipidemia, unspecified - custodial (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 - Presence of coronary angioplasty implant and graft - Other alf (current) drug therapy - 1 Type 2 diabetes mellitus without complications - Old myocardial infarction - Other chronic pain - Vomiting, unspecified - Athscl heart disease of [place] coronary artery w/o ang pctrs - Chronic systolic (congestive) heart failure - Bipolar disorder, unspecified - Low back pain - Viral intestinal infection, unspecified Viral int - Nicotine dependence, unspecified, uncomplicated - Opioid dependence, uncomplicated [email or web address]
--- NOTE | 2019-04-12 06:58 | EKG ---
[facility] [address] [place] [address] Signed Sinus tachycardia Possible Left atrial enlargement Right superior axis deviation Inferior infarct (cited on or before 19-MAR-2019) Abnormal ECG When compared with ECG of 19-MAR-2019 01:21, premature ventricular complexes are no longer present Questionable change in initial forces of Inferior leads Confirmed by GOLDY GOODWIN MD ([id number]) on 04/12/2019 6:58:34 AM Electronically Signed By: GOLDY GOODWIN MD 04/12/19 0658 PATIENT NAME: MIGUELANGEL TRACY Electrocardiogram DATE OF : 58 PHYSICIAN: GOLDY GOODWIN MD REPORT #: [id number] REPORT IS CONFIDENTIAL AND NOT TO BE RELEASED WITHOUT AUTHORIZATION
--- NOTE | 2019-04-12 08:00 | NUR ---
59 YEAR OLD MALE PATIENT ADMITTED TO CCU FROM ED VIA STRETCHER UNDER DR. MORALES WITH DX OF AMS, METABOLIC ENCEPHALOPATHY. UPON ADMIT PATIENT IS LETHARGIC. WILL FOLLOW FEW COMMANDS. IS DIFFICULT TO UNDERSTAND. IVF PATENT. RAMIREZ CATH PATENT WITH CLEAR UELLOW URINE NOTED. HOB ELEVATED. ADMISSION STARTED.
--- NOTE | 2019-04-12 08:25 | NUR ---
morphine 6 mg iv givne for pain. patient is alert, ORIENTED AND COOPERATIVE. IVF INFUSING.
--- NOTE | 2019-04-12 08:30 | NUR ---
UPON ARRIVAL TO CCU, NASAL AIRWAY NOTED IN RIGHT NARE.
--- NOTE | 2019-04-12 09:00 | NUR ---
IV ABX HUNG. WILL OPEN EYES BRIEFY WHEN NAME SAID LOUDLY. THEN BACK TO SLEEP. REMAINS NPO.
--- NOTE | 2019-04-12 10:06 | NUR ---
PER NURSING STAFF, PT IS UNABLE TO GIVE INFORMATION AT THIS TIME. NOT PRESENT AT THIS TIME. WILL CHECK LATER.
--- NOTE | 2019-04-12 10:30 | NUR ---
DEEP SLEEP. WILL WAKE BRIEFLY THEN BACK TO SLEEP. NASAL AIRWAY REMOVED.
--- NOTE | 2019-04-12 11:30 | NUR ---
PATIENT HERE. PATIENT IS NOW AWAKE AND ALERT. C/O MILD BACK PAIN. PATIENT STATES HE ALWAYS HAS BACK PAIN. IS ABLE TO ANSWERE ALL QUESTIONS AND FOLLOW COMMANDS.
--- NOTE | 2019-04-12 12:30 | NUR ---
ASSESSMENT COMPLETE. REMAINS AWAKE. SMALL AMOUNT OF ICE CHIPS GIVEN. STUDENET NURSE REMAINS IN ROOM WHEN ICE CHIPS GIVEN. PATIEN IS SWALLOWING WITHOUT PROBLEMS AT THIS TIME.
[2019-04-12] MEDS ORDERED: ASPIR-LOW81 MG PO (13:08)
[2019-04-12] MEDS ORDERED: METOLAZONE2.5 MG PO (13:08)
--- NOTE | 2019-04-12 13:09 | NUR ---
Med rec completed via [employer] MAR and patient interaction.
--- NOTE | 2019-04-12 14:00 | NUR ---
NAPPING, NO DISTRESS NOTED. NO CHANGES.
--- NOTE | 2019-04-12 16:30 | NUR ---
ASSESSMENT DONE. SPUTUM OBTAINED. C/O BACK PAIN. TALKED WITH PATIENT ABOUT MEDICATIONS HE TAKES AT HOME TOLD PATIENT THIS WOULD BE LOOKED AT BY DR. MORALES.
--- NOTE | 2019-04-12 17:00 | NUR ---
MAGNESIUM 2 MG IV HUNG PER ORDERS.
--- NOTE | 2019-04-12 18:30 | NUR ---
TOOK DINNER WELL. DENIES NAUSEA. HAS BEEN AWAKE ALL AFTERNOON. STATES HE IS FEELING BETTER.
--- NOTE | 2019-04-12 19:10 | NUR ---
REPORT TO NEXT SHIFT. HAS NOT VOIDED SINCE RAMIREZ CATH DC'D AT APPROX 1630. IVF AT 75 ML HR.
--- NOTE | 2019-04-12 19:35 | NUR ---
PT REPORT RECIEVED FROM CCU RN. IN TO CHECK ON PT, STATES HENEEDS TO URINATE. STOOD AT BEDSIDE. MINIMAL ASSIST REQUIRED. STEADY ON FEET.
--- NOTE | 2019-04-12 19:50 | NUR ---
PT ASSESSMENT COMPLETE. PT COMPLETELY ALERT AND ORIENTED, ANSWERING ALL QUESTIONS APPROPRIATELY. LUNGS SOUND COARSE AND DIMINISHED IN THE BASES. PT HAS NON PRODUCTIVE COUGH THAT HE STATES HAS BEEN ONGOING SINCE DECEMBER 2018. PT HAS STASIS CHANGES ON BLE, ALONG WITH TRACE EDEMA. DISCUSSED PLAN OF CARE FOR EVENING. CALL LIGHT WITHIN REACH. NO FURTHER NEEDS AT THIS TIME.
--- NOTE | 2019-04-12 22:00 | NUR ---
PT RESTING IN BED WATCHING TELEVISION. CALL LIGHT WITHIN REACH. DENIES ANY NEEDS AT THIS TIME.
--- NOTE | 2019-04-12 23:00 | NUR ---
PT STANDING AT BEDSIDE TO VOID. REMAINS A&O X4. IV ABX INFUSING. CALL LIGHT WITHIN REACH. NO FURTHER NEEDS AT THIS TIME.
--- NOTE | 2019-04-13 01:07 | NUR ---
IN ROOM FOR PATIENT ASSESSMENT. PT EASY TO AROUSE, ANSWERING QUESTIONS APPROPRIATELY. PT HAS NO REPORTS OF PAIN, DISCOMFORT, OR OTHER NEEDS AT THIS TIME. CALL LIGHT WITHIN REACH. WILL CONTINUE TO MONITOR
--- NOTE | 2019-04-13 02:16 | NUR ---
PT REPORTS A HEADACHE, POSSIBLY A CAFFEINE HEADACHE. GIVEN COFFEE AT THIS TIME. WILL CONTINUE TO MONITOR.
--- NOTE | 2019-04-13 04:07 | NUR ---
IN ROOM FOR ASSESSMENT. PT CONTINUES TO COMPLAIN OF HEADACHE. BLOOD PRESSURE AND HEART RATE INCREASED. TYLENOL GIVEN AT THIS TIME (SEE EMAR). WILL CONTINUE TO MONITOR.
--- NOTE | 2019-04-13 05:15 | NUR ---
LAB IN ROOM TO DRAW BLOOD.
--- NOTE | 2019-04-13 06:17 | NUR ---
IN ROOM FOR MEDICATION ADMINISTRATION. PT STATES HEADACHE PAIN HAS RESOLVED AT THIS TIME. GIVEN FRESH WATER. CALL LIGHT WITHIN REACH. NO FURTHER NEEDS.
--- NOTE | 2019-04-13 08:00 | NUR ---
RESTFUL. STATES HE SLEPT FAIR. ASSESSMENT DONE. PATIENT IS UNDERSTANDING OF PLAN OF CARE FOR DAY. BREAKFAST ORDERED.
--- NOTE | 2019-04-13 09:00 | NUR ---
TOOK BREAKFAST WELL. WISHES TO NAP.
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
--- NOTE | 2019-04-13 11:00 | NUR ---
UP TO BR, USING WALKER TO ABMULATE. HAD LARGE BROWN FORMED STOOL. UPON RETURN TO BED, MODIFIED SPONGE BATH GIVEN. PATIENT STATES HE DOES GET SHORT OF BREATH WITH EXERTION. DR. MORALES HERE TO SEE PATIENT. WILL BE TRANSFERED TO MED-SURG TODAY.
--- NOTE | 2019-04-13 13:30 | NUR ---
ROUTINE MEDICATIONS GIVEN. INCLUDING PO MORPHINE.
--- NOTE | 2019-04-13 14:00 | NUR ---
WILL REMAIN IN ROOM 130 H.C. FOR NOW. PATIENT IS AWARE. MONITOR DC'D. IS W/O, C/O .
--- NOTE | 2019-04-13 16:00 | NUR ---
WATCHING TV. STATES HE IS FEELING BETTER.
--- NOTE | 2019-04-13 20:15 | NUR ---
PT AT THIS TIME IS SLEEPING. V/S ARE WDL. NO NEW CONCERNS NOTED.
--- NOTE | 2019-04-13 21:21 | NUR ---
ROUNDED ON pt. RESTING WITH EYES CLOSED, RESPIRATIONS REGULAR AND UNLABORED. RATE = 18. CALL LIGHT WITHIN REACH.
--- NOTE | 2019-04-13 22:00 | NUR ---
V/S ARE WDL, ALL LOBES HAVE EXPIRATORY WHEEZING PRESENT. PT IS AAOX4. NO OTHER CONCERNS NOTED AT THIS TIME.
--- NOTE | 2019-04-13 23:42 | NUR ---
PT MOVED TO ROOM 123 FROM CCU ROOM 130. A/O, ROOM AIR. HERE FOR PNEUMONIA; AWARE OF THE ROOM MOVED, IS A SBA WITH URINAL AND FWW, AWARE TO CALL STAFF FOR ASSISTANCE. CALL LIGHT WITHIN REACH. ALL PERSONAL SUPPLIES MOVED OVER WITH HIM WELL. RECEIVED REPORT FROM LUZ ELENA BOYER
--- NOTE | 2019-04-14 02:30 | NUR ---
WOKE PT TO USE URINAL. VOIDED 500, REQUESTED ICE WATER. ASK PT IF HE SMOKES, HE STATED YES, BUT HE HAS TO QUIT. AWARE HE WAS EXTREMELY SICK THIS WEEK. DENIED OTHER NEEDS.
--- NOTE | 2019-04-14 06:44 | NUR ---
IV LEAKING. DC'D. STARTED IN [facility] BY HAND BOX FOLDER [place].
--- NOTE | 2019-04-14 09:00 | NUR ---
PATIENT AMBULATED INDEPENDENTLY WITH FWW TO CHAIR FOR BREAKFAST. SATS 95% ON RA. REPORTS 6/10 PAIN IN LOWER BACK. PAIN MEDICATION ADMINISTERED. BLOOD SUGAR WNL/NO INSULIN ADMINISTERED. PATIENT STATES HE SLEPT "OK" LAST NIGHT. OREDERED BREAKFAST. NO ADDITIONAL NEEDS REPORTED AT THIS TIME. ABX INFUSING. CALL LIGHT IN REACH.
--- NOTE | 2019-04-14 11:19 | NUR ---
PATIENT IS SITTING UP IN CHAIR. REPORTS PAIN AT 5/10. RESPIRATIONS EQUAL AND UNLABORED. NO NEEDS REPORTED AT THIS TIME. CALL LIGHT IN REACH.
--- NOTE | 2019-04-14 12:07 | NUR ---
PATIENT UP IN CHAIR. DOCTOR ANDREW ROUNDING ON PATIENT. POC DISCUSSED. PATIENT REPORTS HEADACHE. TYLENOL ADMINISTERED. PT EATING LUNCH. WANTS TO SHOWER AFTER EATING AND AMBULATE IN CASTRO. CALL LIGHT IN REACH.
--- NOTE | 2019-04-14 13:30 | NUR ---
ATTEMPTED TO SPEAK WITH PT X3 TODAY, HE WAS ON THE PHONE EACH TIME. WILL VISIT TOMORROW.
--- NOTE | 2019-04-14 14:01 | NUR ---
PATIENT UP IN CHAIR. RESPIRATIONS EQUAL AND UNLABORED. SATS 95% ON RA. REPORTS PAIN AT 5/10. IV ABX INFUSING. NO ADDITIONAL NEEDS REPORTEDAT THIS TIME. CALL LIGHT IN REACH.
--- NOTE | 2019-04-14 14:02 | NUR ---
PT SITTING IN CHAIR, STUDENT IN CARING FOR PT. HE WAVED AND THANKED ME FOR COMING IN. PT WAS JUST FINISHING LUNCH. WILL FOLLOW NEEDED
--- NOTE | 2019-04-14 15:35 | NUR ---
PT SITTING UP IN RECLINER REPORTS PAIN 5/10, SCHEDULED PAIN MEDICATIONS GIVEN FOR 5/10 CHRONIC PAIN AT HIS BACK
--- NOTE | 2019-04-14 17:16 | NUR ---
PATIENT SITTING UP IN CHAIR. RESPIRATIONS EQUAL AND UNLABORED ON RA. REPORTS 5/10 PAIN AFTER MORPHINE PO. CALL LIGHT IN REACH.
--- NOTE | 2019-04-14 18:14 | NUR ---
PATIENT WAS UP TO DAY WATCHING TV, TOOK A SHOWER AFTER DINNER. VITAL DONE
--- NOTE | 2019-04-14 19:20 | NUR ---
SHIFT REPORT RECEIVED FROM DAYSHIFT LUZ ELENA RUDOLPH AT BEDSIDE. PT AWAKE AND RESTING IN CHAIR, NO NEEDS OR COMPLIANTS AT THIS TIME, CALL LIGHT IN REACH.
--- NOTE | 2019-04-14 22:15 | NUR ---
ASSESSMENT COMPLETE, SCHEDULED MEDS GIVEN (SEE EMAR). PT A/O, REPORTS MINIMAL BACK PAIN. PT SL, IV SITE WNL. IV ABX NOW INFUSING. VSS, PT DENIES CHEST PAIN AND SOB. NO DISTRESS NOTED, CBG WNL. NO INSULIN SS REQUIRED. NO FURTHER NEEDS, CALL LIGHT IN REACH.
--- NOTE | 2019-04-15 01:00 | NUR ---
PT RESTING IN BED WITH EYES CLOSED, RR WNL. EVEN AND UNLABORED. IV ABX INFUSING, SITE WNL. PT APPEARS COMFORTABLE, CALL LIGHT IN REACH.
--- NOTE | 2019-04-15 03:20 | NUR ---
ASSESSMENT COMPLETE, NO NEW CHANGES OR CONCERNS. PT A/O, REPORTS TOLERABLE 7/10 CHRONIC BACK PAIN. DENIES NEED FOR PHARMACOLOGIC INTERVENTION. PT SALINE LOCKED, IV SITE WNL. PT UP SBA WITH FWW TO VOID AND RETURNED TO BED. FRESH DIET COLA AND WATER AT BEDSIDE. NO FURTHER NEEDS, CALL LIGHT IN REACH.
--- NOTE | 2019-04-15 05:53 | NUR ---
Pt walked 2 laps around the unit.
--- NOTE | 2019-04-15 05:56 | NUR ---
scheduled iv abx infusing per md orders (see emrar). iv site wnl, blood return noted. no further needs, call light in reach.
--- NOTE | 2019-04-15 07:34 | NUR ---
PATIENT LYING IN BED WITH EYES CLOSED. RESPIRATIONS EQUAL AND UNLABORED ON RA. CALL LIGHT IN REACH.
--- NOTE | 2019-04-15 09:30 | NUR ---
PATIENT SITTING UP IN BED AWAKE FINISHING BREAKFAST. PATIENT REPORTS 5/10 PAIN. RESPIRATIONS EQUAL AND UNLABORED. SPOKE WITH PATIENT ABOUT SMOKING CESSATION. PT STATES HE QUIT FOR FOR YEARS AND STRESSFUL EVENT PROMPTED HIM TO START BACK UP. PATIENT STATES HE PLANS TO QUIT. REQUESTS TO AMBULATE IN HALLWAY. IV ABX INFUSING. CALL LIGHT IN REACH.
--- NOTE | 2019-04-15 09:45 | NUR ---
PATIENT WASHED HANDS AND FACE. SN FISHER ASKED PATIENT IF HE WOULD LIKE TO SHOWER TODAY. PATIENT REFUSED SHOWER.
--- NOTE | 2019-04-15 10:19 | NUR ---
IV SALINE LOCKED. ABX COMPLETED.
--- NOTE | 2019-04-15 11:57 | NUR ---
ROUNDED ON PATIENT. PT SITTING UP IN BED TALKING ON PHONE. NO NEEDS REPORTED AT THIS TIME. CALL LIGHT IN REACH.
--- NOTE | 2019-04-15 14:22 | NUR ---
Spoke with Lane. He states he is going home tomorrow. Denies any needs for dc. CG, exwife, will transport him and he all the DME he needs.
--- NOTE | 2019-04-15 15:30 | NUR ---
PATIENT UP IN CHAIR WITH EYES CLOSED. WOKE PATIENT TO COMPLETE ASSESMENT. PT REPORTS PAIN OF 5/10. RESPIRATIONS EQUAL AND UNLABORED. NO NEEDS REPORTED AT T HIS TIME. CALL LIGHT IN REACH.
--- NOTE | 2019-04-15 17:10 | NUR ---
PATIENT SITTING IN CHAIR ON TELEPHONE. ADMINISTERED SCHEDULED MEDICATIONS. PATEINT REQUESTED EXCEDRINE FOR HEADACHE. REPORTS 6/10 PAIN. PATIENTS BLOOD SUGAR WAS WITHIN RANGE (119), NO HUMULIN REQUIRED. PATIENT PLANNED FOR DISCHARGE TOMORROW . CALL LIGHT IN REACH.
--- NOTE | 2019-04-15 19:15 | NUR ---
RECIEVED REPORT AT BEDSIDE. PT UP IN CHAIR. NO REQQUEST AT THIS TIME. CALL LIGHT IN REACH
--- NOTE | 2019-04-15 21:00 | NUR ---
NURSES SUPERINTENDENT ROUNDING NOTE. PT SITTING UP IN CHAIR. DENIES QUESTIONS OR CONCERNS AT THIS TIME. CALL LIGHT IN REACH. WHITE BOARD UDPATED.
--- NOTE | 2019-04-16 00:57 | NUR ---
PATIENT IS SETTING UP WATCHING TV, ASKED FOR COFFEE AND WATER.
--- NOTE | 2019-04-16 07:32 | NUR ---
PATIENT IN BED WITH EYES CLOSED. RESPIRATIONS EQUAL AND UNLABORED. BED RAILS UP X2. CALL LIGHT IN REACH.
--- NOTE | 2019-04-16 09:34 | NUR ---
PATIENT UP IN CHAIR ON CELL PHONE. ATE 100% OF HIS BREAKFAST. REPORTS 5/10 PAIN. MEDICATIONS GIVEN. NURSE WILL REASSESS PAIN. RESPIRATIONS EQUAL AND UNLABORED. 92% O2 ON RA. NO NEEDS REPORTED AT THIS TIME. CALL LIGHT IN REACH.
--- NOTE | 2019-04-16 10:25 | NUR ---
PATIENT IN CHAIR WATCHING TV. FRESH WATER GIVEN. CALL LIGHT IN REACH. NO FURTHER NEEDS AT THIS TIME.
--- NOTE | 2019-04-16 10:52 | NUR ---
PATIENT UP IN CHAIR. SPEAKING WITH PATIENT INFORMING HIM OF DISCHARGE PLAN. EDUCATING PATIENT REGARDING POSITIVE STAPH CULTURE, AND 7 DAY ABX TX PLAN AFTER DISCHARGE TODAY. PATIENT STATES HE FEELS MUCH BETTER SINCE ADMISSION AND IS EAGERLY ANTICIPATING DISCHARGE. NO ADDITIONAL NEEDS REPORTED AT THIS TIME. CALL LIGHT IN REACH.
[2019-04-16] MEDS ORDERED: AUGMENTIN 875-1 EACH PO (10:56)
[2019-04-16] MEDS ORDERED: PSEUDOEPHEDRINE60 MG PO (10:57)
--- NOTE | 2019-04-16 11:37 | NUR ---
PATIENT PROVIDED WITH DISCHARGE INSTRUCTIONS. IV REMOVED. PHARMACY REVIEWED PATIENT MEDICATIONS. PATIENT INSTRUCTED TO MAKE FOLLOW UP APT WITH PCP ON THURSDAY. PATIENT TRANSPORTED VIA WHEELCHAIR TO [facility].
--- NOTE | 2019-04-19 14:55 | NUR ---
PT RETURNED FOLLOW UP CALL WITH MESSAGE LEFT WITH HIS . PT STATES HIS TRANSITION HOME WAS FINE AND HE FEELS HE IS DOING WELL. HE GOT HIS RX'S FILLED AND HE KNOWS WHY HE IS TAKING HIS MEDICATIONS. KNOWS WHEN HIS FOLLOW UP APPT NEEDS BE MADE AND HE IS GOING TO DO THAT. DENIES OTHER ISSUES, QUESTIONS, OR CONCERNS AT THIS TIME.
== END 2019-04-16 11:30 | disposition home or self-care (01) | DRG 177 ==
LOC: ED 04:40 → CCU 07:41 → MS 07:41 → CCU 07:42 → MS 04-13 23:38
PROVIDERS: ADMIT Internal Medicine
DX: J15.211 Pneumonia due to Methicillin susceptible Staphylococcus aureus (principal); G92 Toxic encephalopathy; I42.9 Cardiomyopathy, unspecified; I50.32 Chronic diastolic (congestive) heart failure; F11.20 Opioid dependence, uncomplicated; T43.015A Adverse effect of tricyclic antidepressants, initial encounter; T40.2X5A Adverse effect of other opioids, initial encounter; T45.0X5A Adverse effect of antiallergic and antiemetic drugs, initial encounter; T42.6X5A Adverse effect of other antiepileptic and sedative-hypnotic drugs, initial encounter; T43.595A Adverse effect of other antipsychotics and neuroleptics, initial encounter; J32.0 Chronic maxillary sinusitis; M54.9 Dorsalgia, unspecified; G89.29 Other chronic pain; F31.9 Bipolar disorder, unspecified; E11.9 Type 2 diabetes mellitus without complications; I25.2 Old myocardial infarction; G43.909 Migraine, unspecified, not intractable, without status migrainosus; E78.5 Hyperlipidemia, unspecified; I11.0 Hypertensive heart disease with heart failure; F17.200 Nicotine dependence, unspecified, uncomplicated; I25.10 Atherosclerotic heart disease of native coronary artery without angina pectoris; Z95.5 Presence of coronary angioplasty implant and graft; Z95.810 Presence of automatic (implantable) cardiac defibrillator; Z79.899 Other long term (current) drug therapy; Z79.82 Long term (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; Z79.4 Long term (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
CPT/HCPCS: 36415; 36600; 51702; 70450; 71045; 80048; 80053; 81001; 82306; 82803; 83605; 83735; 85025; 85610; 87040; 87070; 87077; 87186; 87205; 93005; 93010; 93306; 99285-25; C9113; J1650; J1815; J2310; J2543; J3475; J7030; J7042

== ENCOUNTER 2020-04-08 20:31 | Emergency (ER) | payer OTHER ==
[~2020-04-08] VITALS: Ht 175.3 cm; Wt 92.8 kg
[~2020-04-08 20:31] MED LIST changes: +ASPIR-LOW81 MG PO; +AUGMENTIN 875-1 EACH PO; +METOLAZONE2.5 MG PO; +PSEUDOEPHEDRINE60 MG PO
--- OUTSIDE RECORDS SUMMARY | 2020-04-08 20:34 | XMS ---
PreManage Notification: MIGUELANGEL TRACY Security Merchandising Execution Manager Events No recent Security Events currently on file CRITERIA MET - Group Notification CARE PROVIDERS Gomez, Melissa Aoc Plans Intelligence Officer Chief/Boxing Instructor 03/19/2020-Current PHONE: [phone] Robin has no Care Guidelines for this patient. Care History Medical/Surgical 08/17/2018 [facility] EOIPA CASE MANAGEMENT REFERRAL MADE- PATIENT HAS [facility] AND NO PCP. 05/03/2018 [facility] - CHW CONTACTED PATIENT- PATIENT DOES NOT [...] APT. E.D. VISIT COUNT (12 MO.) 2 [facility] TOTAL 2 NOTE: Visits indicate total known visits. ED/UCC VISIT TRACKING (12 MO.) 04/08/2020 20:32 [facility] TYPE: Emergency COMPLAINT: - HIGH BLOOD SUGAR 04/12/2019 04:40 [facility] TYPE: Emergency COMPLAINT: - ALTERED LOC INPATIENT VISIT TRACKING (12 MO.) 04/12/2019 07:41 [facility] TYPE: Medical Surgical COMPLAINT: - METABOLIC ENCEPHALOPATHY DIAGNOSES: - Dorsalgia, unspecified - Metabolic encephalopathy - Adverse effect of other opioids, initial encounter - Other chronic pain - Presence of automatic (implantable) cardiac defibrillator - Old myocardial infarction - Bipolar disorder, unspecified - Chronic diastolic (congestive) heart failure - Pneumonia due to Methicillin susceptible Staphylococcus aureus - Type 2 diabetes mellitus without complications - Toxic encephalopathy - Atherosclerotic heart disease of [place] coronary artery without angina pectoris - Presence of coronary angioplasty implant and graft - Opioid dependence, uncomplicated - intermodal dispatcher (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 - Migraine, unspecified, not intractable, without status migrainosus - Other equipment operator intermodal yard (current) drug therapy - Adverse effect of other antiepileptic and sedative-hypnotic drugs, initial encounter - Adverse effect of other antipsychotics and neuroleptics, initial encounter - Hyperlipidemia, unspecified - Nicotine dependence, unspecified, uncomplicated - Chronic maxillary sinusitis - Adverse effect of antiallergic and antiemetic drugs, initial encounter - Hypertensive heart disease with heart failure - intermodal dispatcher (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 - Adverse effect of tricyclic antidepressants, initial encounter - Cardiomyopathy, unspecified [email or web address]
[2020-04-08] MEDS ORDERED: METHYLPREDNISOLO4 M1 PO (21:00)
== END 2020-04-08 22:22 | disposition home or self-care (01) ==
LOC: ED 20:31
DX: E11.65 Type 2 diabetes mellitus with hyperglycemia (principal); E11.9 Type 2 diabetes mellitus without complications; I25.2 Old myocardial infarction; E78.5 Hyperlipidemia, unspecified; I25.10 Atherosclerotic heart disease of native coronary artery without angina pectoris; F17.200 Nicotine dependence, unspecified, uncomplicated; Z79.899 Other long term (current) drug therapy; Z79.82 Long term (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; Z79.4 Long term (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
CPT/HCPCS: 80053; 82010; 82800; 85025; 96374; 99284-25; J1815; J7030

== ENCOUNTER 2020-07-16 18:35 | Emergency (ER) | payer OTHER ==
[~2020-07-16] VITALS: Ht 175.3 cm; Wt 101.9 kg
--- OUTSIDE RECORDS SUMMARY | 2020-07-16 18:38 | XMS ---
PreManage Notification: MIGUELANGEL TRACY Security Oxygen System Tester Events No recent Security Events currently on file CRITERIA MET - [facility] CARE PROVIDERS JasonKatie Bottom Hoop Driver/Third Miller 03/19/2020-Current PHONE: [phone] [facility]Current PHONE: [phone] Robin has no Care Guidelines for this patient. Care History Medical/Surgical 05/03/2018 [facility] - CHW CONTACTED PATIENT- PATIENT DOES NOT [...] known visits. ED/UCC VISIT TRACKING (12 MO.) 07/16/2020 18:36 [facility] TYPE: Emergency COMPLAINT: - RT FOOT PAIN 04/08/2020 20:32 [facility] TYPE: Emergency COMPLAINT: - HIGH BLOOD SUGAR DIAGNOSES: - Other shelter (current) drug therapy - Type 2 diabetes mellitus with hyperglycemia - residential (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 - residential (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 - Atherosclerotic heart disease of [place] coronary artery without angina pectoris - Nicotine dependence, unspecified, uncomplicated - Old myocardial infarction - Type 2 diabetes mellitus without complications - Hyperlipidemia, unspecified INPATIENT VISIT TRACKING (12 MO.) No inpatient visits to display in this time frame [id number]
[2020-07-16] MEDS ORDERED: CLINDAMYCIN HC300 MG PO (19:05)
[2020-07-16] MEDS ORDERED: DOXYCYCLINE HY100 MG PO (22:36)
== END 2020-07-17 00:10 | disposition home or self-care (01) ==
LOC: ED 18:35
DX: L03.031 Cellulitis of right toe (principal); E11.9 Type 2 diabetes mellitus without complications; I25.2 Old myocardial infarction; E78.5 Hyperlipidemia, unspecified; I25.10 Atherosclerotic heart disease of native coronary artery without angina pectoris; Z87.891 Personal history of nicotine dependence; Z79.899 Other long term (current) drug therapy; Z79.52 Long term (current) use of systemic steroids; Z79.82 Long term (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; Z79.891 Long term (current) use of opiate analgesic
CPT/HCPCS: 73660; 80053; 85025; 96365; 96366; 99283-25; J3370

== ENCOUNTER 2020-12-04 14:29 | Emergency (ER) | payer OTHER ==
[~2020-12-04] VITALS: Ht 175.3 cm; Wt 101.9 kg
[~2020-12-04 14:29] MED LIST changes: +CLINDAMYCIN HC300 MG PO; +DOXYCYCLINE HY100 MG PO
--- OUTSIDE RECORDS SUMMARY | 2020-12-04 14:32 | XMS ---
PreManage Notification: MIGUELANGEL TRACY Security Plate Maker Zinc Events No recent Security Events currently on file CRITERIA MET - [facility] CARE PROVIDERS Gomez, Melissa Perlite Grinder/Auto Crane Driver 10/17/2020-Current PHONE: [phone] [facility]Current PHONE: [phone] Robin has no Care Guidelines for this patient. Care History Medical/Surgical 05/03/2018 [facility] - CHW CONTACTED PATIENT- PATIENT DOES NOT [...] APT. E.D. VISIT COUNT (12 MO.) [address] [facility] TOTAL 3 NOTE: Visits indicate total known visits. ED/UCC VISIT TRACKING (12 MO.) 12/04/2020 14:30 [facility] TYPE: Emergency COMPLAINT: - CONFUSED, POSS BLOOD SUGAR ISSUE 07/16/2020 18:36 [facility] TYPE: Emergency COMPLAINT: - RT FOOT PAIN/ NO INJURY DIAGNOSES: - Old myocardial infarction - Atherosclerotic heart disease of [place] coronary artery without angina pectoris - Other retirement (current) drug therapy - Personal history of nicotine dependence - senior care (current) use of opiate analgesic - Cellulitis of right toe - Type 2 diabetes mellitus without complications - break out man (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 - senior care (current) use of systemic steroids - Hyperlipidemia, unspecified 04/08/2020 20:[address] [facility] [place] TYPE: Emergency COMPLAINT: - HIGH BLOOD SUGAR DIAGNOSES: - Other primary special educator (current) drug therapy - Type 2 diabetes mellitus with hyperglycemia - senior care (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 - senior care (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 - Atherosclerotic heart disease of [place] coronary artery without angina pectoris - Nicotine dependence, unspecified, uncomplicated - Old myocardial infarction - Type 2 diabetes mellitus without complications - Hyperlipidemia, unspecified INPATIENT VISIT TRACKING (12 MO.) No inpatient visits to display in this time frame [id number]
== END 2020-12-04 21:00 | disposition home or self-care (01) ==
LOC: ED 14:29
DX: U07.1 COVID-19 (principal); I25.2 Old myocardial infarction; E11.40 Type 2 diabetes mellitus with diabetic neuropathy, unspecified; G43.909 Migraine, unspecified, not intractable, without status migrainosus; I25.10 Atherosclerotic heart disease of native coronary artery without angina pectoris; E78.5 Hyperlipidemia, unspecified; Z87.891 Personal history of nicotine dependence; Z79.52 Long term (current) use of systemic steroids; Z79.82 Long term (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; Z79.899 Other long term (current) drug therapy; Z79.4 Long term (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; Y90.0 Blood alcohol level of less than 20 mg/100 ml
CPT/HCPCS: 71045; 80053; 81001; 83605; 84484; 85025; 96374; 99285-25; C9803; G0480; J2405; M0243; Q0244; U0003

== ENCOUNTER 2021-02-08 22:10 | Emergency (ER) | payer OTHER ==
[~2021-02-08] VITALS: Ht 175.3 cm; Wt 109.8 kg
--- OUTSIDE RECORDS SUMMARY | 2021-02-08 22:12 | XMS ---
PreManage Notification: MIGUELANGEL TRACY Security Metal Turner Events No recent Security Events currently on file CRITERIA MET - [facility] CARE PROVIDERS Gomez, Melissa Drill Operator Automatic/Health And Fitness Professor 01/16/2021-Current PHONE: [phone] [facility]Current PHONE: [phone] Robin has no Care Guidelines for this patient. Care History Medical/Surgical 05/03/2018 [facility] - CHW CONTACTED PATIENT- PATIENT [...] APT. E.D. VISIT COUNT (12 MO.) 4 [facility] [place] TOTAL 4 NOTE: Visits indicate total known visits. 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 - Personal history of nicotine dependence - Type 2 diabetes mellitus with diabetic neuropathy, unspecified - Old myocardial infarction - Blood alcohol level of less than 20 mg/100 ml - truck terminal manager (current) use of systemic steroids - Other 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 (current) drug therapy - Hyperlipidemia, unspecified - Weakness - COVID-19 - Atherosclerotic heart disease of [place] coronary artery without angina pectoris - Migraine, unspecified, not intractable, without status migrainosus 07/16/2020 18:36 [facility] [place] TYPE: Emergency COMPLAINT: - RT FOOT PAIN/ NO INJURY DIAGNOSES: - Old myocardial infarction - Atherosclerotic heart disease of [place] coronary artery without angina pectoris - Other watermaster (current) drug therapy - Personal history of nicotine dependence - long-term (current) use of opiate analgesic - Cellulitis of right toe - Type 2 diabetes mellitus without complications - truck terminal manager (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 - long-term (current) use of systemic steroids - Hyperlipidemia, unspecified 04/08/2020 20:32 [facility] TYPE: Emergency COMPLAINT: - HIGH BLOOD SUGAR DIAGNOSES: - Other watermaster (current) drug therapy - Type 2 diabetes mellitus with hyperglycemia - truck terminal manager (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 - truck terminal manager (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 - Atherosclerotic heart disease of [place] coronary artery without angina pectoris - Nicotine dependence, unspecified, uncomplicated - Old myocardial infarction - Type 2 diabetes mellitus without complications - Hyperlipidemia, unspecified INPATIENT VISIT TRACKING (12 MO.) No inpatient visits to display in this time frame [id number]
== END 2021-02-08 22:40 | disposition home or self-care (01) ==
LOC: ED 22:10
DX: R21 Rash and other nonspecific skin eruption (principal); I25.2 Old myocardial infarction; E11.9 Type 2 diabetes mellitus without complications; I25.10 Atherosclerotic heart disease of native coronary artery without angina pectoris; E78.5 Hyperlipidemia, unspecified; Z87.891 Personal history of nicotine dependence; Z79.899 Other long term (current) drug therapy; Z79.82 Long term (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; Z79.84 Long term (current) use of oral hypoglycemic drugs; Z79.4 Long term (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
CPT/HCPCS: 99282

== ENCOUNTER 2021-03-07 13:02 | Emergency (ER) | payer OTHER ==
[~2021-03-07] VITALS: Ht 175.3 cm; Wt 110.0 kg
--- OUTSIDE RECORDS SUMMARY | 2021-03-07 13:04 | XMS ---
PreManage Notification: MIGUELANGEL TRACY Security Translator And Interpreter Events No recent Security Events currently on file CRITERIA MET - [facility] - [facility] - 2 Visits in 30 Days CARE PROVIDERS Katie Gomez Funeral Prearrangement Counselor/Principal Research Economist 01/16/2021-Current PHONE: [phone] [facility] 04/09/2020-Current PHONE: [phone] Robin has no Care Guidelines for this patient. Care History Medical/Surgical 05/03/[address] [facility] - CHW CONTACTED PATIENT- PATIENT [...] THE APT. E.D. VISIT COUNT (12 MO.) 5 [facility] [place] TOTAL 5 NOTE: Visits indicate total known visits. ED/UCC VISIT TRACKING (12 MO.) 03/07/2021 13:02 [facility] TYPE: Emergency COMPLAINT: - SOB HEADACHE 02/08/2021 22:11 [facility] TYPE: Emergency COMPLAINT: - RASH DIAGNOSES: - alf (current) use of oral hypoglycemic drugs - Other emt 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 (current) drug therapy - emt 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 (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 - Type 2 diabetes mellitus without complications - emt 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 (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 - Hyperlipidemia, unspecified - Personal history of nicotine dependence - Old myocardial infarction - Atherosclerotic heart disease of [place] coronary artery without angina pectoris - Rash and other nonspecific skin eruption 12/04/2020 14:30 [facility] [place] TYPE: Emergency COMPLAINT: - CONFUSED, POSS BLOOD SUGAR ISSUE DIAGNOSES: - emt 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 (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 - alf (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 - Personal history of nicotine dependence - Type 2 diabetes mellitus with diabetic neuropathy, unspecified - Old myocardial infarction - Blood alcohol level of less than 20 mg/100 ml - emt 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 (current) use of systemic steroids - Other emt 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 (current) drug therapy - Hyperlipidemia, unspecified - Weakness - COVID-19 - Atherosclerotic heart disease of [place] coronary artery without angina pectoris - Migraine, unspecified, not intractable, without status migrainosus 07/16/2020 18:36 [facility] TYPE: Emergency COMPLAINT: - RT FOOT PAIN/ NO INJURY DIAGNOSES: - Old myocardial infarction - Atherosclerotic heart disease of [place] coronary artery without angina pectoris - Other usp (current) drug therapy - Personal history of nicotine dependence - emt 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 (current) use of opiate analgesic - Cellulitis of right toe - Type 2 diabetes mellitus without complications - emt 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 (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 - emt 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 (current) use of systemic steroids - Hyperlipidemia, unspecified 04/08/2020 20:[address] [facility] [place] TYPE: Emergency COMPLAINT: - HIGH BLOOD SUGAR DIAGNOSES: - Other emt 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 (current) drug therapy - Type 2 diabetes mellitus with hyperglycemia - emt 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 (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 - alf (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 - Atherosclerotic heart disease of [place] coronary artery without angina pectoris - Nicotine dependence, unspecified, uncomplicated - Old myocardial infarction - Type 2 diabetes mellitus without complications - Hyperlipidemia, unspecified INPATIENT VISIT TRACKING (12 MO.) No inpatient visits to display in this time frame [id number]
[2021-03-07] MEDS ORDERED: ONDANSETRON ODT4 MG PO (16:54)
--- NOTE | 2021-03-09 11:44 | EKG ---
[facility] [address] [place] [address] Signed Sinus tachycardia Right superior axis deviation Nonspecific intraventricular block Possible Inferior infarct (cited on or before 19-MAR-2019) Abnormal ECG When compared with ECG of 12-APR-2019 04:44, QRS duration has increased Confirmed by ALTA MORALES MD ([id number]) on 03/09/2021 11:44:02 AM Electronically Signed By: ALTA MORALES MD 03/09/21 1144 PATIENT NAME: MIGUELANGEL TRACY Electrocardiogram DATE OF : 58 PHYSICIAN: ALTA MORALES MD REPORT #: [id number] REPORT IS CONFIDENTIAL AND NOT TO BE RELEASED WITHOUT AUTHORIZATION
== END 2021-03-07 17:24 | disposition home or self-care (01) ==
LOC: ED 13:02
DX: R11.2 Nausea with vomiting, unspecified (principal); R14.0 Abdominal distension (gaseous); I25.2 Old myocardial infarction; E11.9 Type 2 diabetes mellitus without complications; G43.909 Migraine, unspecified, not intractable, without status migrainosus; I50.22 Chronic systolic (congestive) heart failure; E78.5 Hyperlipidemia, unspecified; L40.9 Psoriasis, unspecified; Z87.891 Personal history of nicotine dependence; Z79.82 Long term (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; Z79.84 Long term (current) use of oral hypoglycemic drugs; Z79.4 Long term (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; Z79.899 Other long term (current) drug therapy; Z20.822 Contact with and (suspected) exposure to COVID-19
CPT/HCPCS: 71045; 74176; 80053; 81001; 83690; 83735; 84484; 85025; 93005; 93010; 96374; 99285-25; C9803; J2405; U0003

== ENCOUNTER 2021-05-06 14:57 | Inpatient (IN) | payer OTHER ==
[~2021-05-06] VITALS: Ht 175.3 cm; Wt 123.0 kg
[~2021-05-06 14:57] MED LIST changes: -ASPIR-LOW81 MG PO; +BAYER CHEWABLE81 MG PO; +ONDANSETRON ODT4 MG PO
--- OUTSIDE RECORDS SUMMARY | 2021-05-06 15:00 | XMS ---
PreManage Notification: MIGUELANGEL TRACY Security Ob Tech Events No recent Security Events currently on file CRITERIA MET - [facility] CARE PROVIDERS Jason Katie Tube Laser Operator/Plastic Tubing Insulation Supervisor 04/16/2021-Current PHONE: [phone] AKIRA JACKSON Physician Harness Cleaner 03/11/2021-Current PHONE: [phone] [facility] Current PHONE: Unknown Robin has no Care Guidelines for this [...] known visits. 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 - Type 2 diabetes mellitus without complications - Abdominal distension (gaseous) - Hyperlipidemia, unspecified - Migraine, unspecified, not intractable, without status migrainosus - superintendent marine oil terminal (current) use of oral hypoglycemic drugs - Old myocardial infarction - Other exterminator (current) drug therapy - Nausea with vomiting, unspecified - Psoriasis, unspecified - Chronic systolic (congestive) heart failure - snf (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 - Other chest pain - Personal history of nicotine dependence 02/08/2021 22:11 [facility] [place] TYPE: Emergency COMPLAINT: - RASH DIAGNOSES: - snf (current) use of oral hypoglycemic drugs - Other 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 (current) drug therapy - snf (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 - Type 2 diabetes mellitus without complications - superintendent marine oil terminal (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 - Hyperlipidemia, unspecified - Personal history of nicotine dependence - Old myocardial infarction - Atherosclerotic heart disease of [place] coronary artery without angina pectoris - Rash and other nonspecific skin eruption 12/04/2020 14:30 [facility] [place] TYPE: Emergency COMPLAINT: - CONFUSED, POSS BLOOD SUGAR ISSUE DIAGNOSES: - snf (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 - superintendent marine oil terminal (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 - Personal history of nicotine dependence - Type 2 diabetes mellitus with diabetic neuropathy, unspecified - Old myocardial infarction - Blood alcohol level of less than 20 mg/100 ml - superintendent marine oil terminal (current) use of systemic steroids - Other 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 (current) drug therapy - Hyperlipidemia, unspecified - Weakness - COVID-19 - Atherosclerotic heart disease of [place] coronary artery without angina pectoris - Migraine, unspecified, not intractable, without status migrainosus 07/16/2020 18:36 [facility] [place] TYPE: Emergency COMPLAINT: - RT FOOT PAIN/ NO INJURY DIAGNOSES: - Old myocardial infarction - Atherosclerotic heart disease of [place] coronary artery without angina pectoris - Other exterminator (current) drug therapy - Personal history of nicotine dependence - superintendent marine oil terminal (current) 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
[2021-05-07] MEDS ORDERED: POTASSIUM CHLO20 ME1 PO (10:53)
[2021-05-07] MEDS ORDERED: MORPHINE SULFAT30 M2 PO (10:53)
[2021-05-07] MEDS ORDERED: JARDIANCE10 MG PO (10:54)
[2021-05-07] MEDS ORDERED: PROPRANOLOL HCL80 M1 PO (10:54)
[2021-05-07] MEDS ORDERED: OLANZAPINE10 MG PO (10:58)
[2021-05-07] MEDS ORDERED: INSULIN AS100 UNIT/3 SUB-Q (10:59)
[2021-05-07] MEDS ORDERED: TRESIBA FL200 UNIT/1 SUB-Q (11:00)
[2021-05-07] MEDS ORDERED: GABAPENTIN600 MG PO (12:12)
[2021-05-07] MEDS ORDERED: ENTRESTO 24 MG1 EACH PO (12:14)
[2021-05-07] MEDS ORDERED: DIPHENHYDRAMINE25 M2 PO (12:15)
[2021-05-07] MEDS ORDERED: NITROGLYCERIN0.4 MG SL (12:16)
--- NOTE | 2021-05-07 12:37 | EKG ---
[facility] [address] [place] [address] Signed Normal sinus rhythm Right superior axis deviation Nonspecific intraventricular block Abnormal ECG When compared with ECG of 07-MAR-2021 13:09, No significant change was found Confirmed by ALTA MORALES MD ([id number]) on 05/07/2021 12:37:23 PM Electronically Signed By: ALTA MORALES MD 05/07/21 1237 PATIENT NAME: MIGUELANGEL TRACY Electrocardiogram DATE OF : 58 PHYSICIAN: ALTA MORALES MD REPORT #: [id number] REPORT IS CONFIDENTIAL AND NOT TO BE RELEASED WITHOUT AUTHORIZATION
[2021-05-09] MEDS ORDERED: CIPROFLOXACIN500 MG PO (11:42)
[2021-05-09] MEDS ORDERED: METRONIDAZOLE500 MG PO (11:42)
== END 2021-05-09 13:34 | disposition home or self-care (01) | DRG 871 ==
LOC: ED 14:57 → CCU 18:15 → MS 05-07 18:20
PROVIDERS: ADMIT Internal Medicine; ATTEND Internal Medicine
DX: A41.9 Sepsis, unspecified organism (principal); G93.41 Metabolic encephalopathy; N17.9 Acute kidney failure, unspecified; I50.22 Chronic systolic (congestive) heart failure; I42.9 Cardiomyopathy, unspecified; F11.20 Opioid dependence, uncomplicated; Z20.822 Contact with and (suspected) exposure to COVID-19; R65.20 Severe sepsis without septic shock; I25.10 Atherosclerotic heart disease of native coronary artery without angina pectoris; K52.9 Noninfective gastroenteritis and colitis, unspecified; T40.2X5A Adverse effect of other opioids, initial encounter; I25.2 Old myocardial infarction; E11.9 Type 2 diabetes mellitus without complications; Z95.1 Presence of aortocoronary bypass graft; E78.5 Hyperlipidemia, unspecified; F31.9 Bipolar disorder, unspecified; G89.4 Chronic pain syndrome; G43.909 Migraine, unspecified, not intractable, without status migrainosus; Z87.891 Personal history of nicotine dependence; Z98.890 Other specified postprocedural states; Z95.5 Presence of coronary angioplasty implant and graft; Z79.899 Other long term (current) drug therapy; Z79.82 Long term (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; K21.9 Gastro-esophageal reflux disease without esophagitis
CPT/HCPCS: 36415; 71045; 74018; 74176; 80048; 80053; 81001; 82140; 82570; 83036; 83605; 83690; 83735; 83880; 84300; 84550; 85025; 85610; 85730; 87040; 87045; 87493; 93005; 93010; 96374; 96375; 99285-25; A9270; J0744; J0780; J1650; J1815; J2270; J2405; J2550; J3480; J7030; J7120; J7121; U0003

== ENCOUNTER 2021-05-24 22:24 | Emergency (ER) | payer OTHER ==
[~2021-05-24] VITALS: Ht 175.3 cm; Wt 120.0 kg
[~2021-05-24 22:24] MED LIST changes: +CIPROFLOXACIN500 MG PO; +DIPHENHYDRAMINE25 M2 PO; +ENTRESTO 24 MG1 EACH PO; +GABAPENTIN600 MG PO; +INSULIN AS100 UNIT/3 SUB-Q; +JARDIANCE10 MG PO; +METRONIDAZOLE500 MG PO; +MORPHINE SULFAT30 M2 PO; +OLANZAPINE10 MG PO; +POTASSIUM CHLO20 ME1 PO; +PROPRANOLOL HCL80 M1 PO; +TRESIBA FL200 UNIT/1 SUB-Q
--- OUTSIDE RECORDS SUMMARY | 2021-05-24 22:32 | XMS ---
PreManage Notification: MIGUELANGEL TRACY Security Cryptoanalysis Teacher Events No recent Security Events currently on file CRITERIA MET - [facility] - 2 Visits in 30 Days CARE PROVIDERS Katie Gomez [place] Guide/Alkylation Operator 04/16/2021-Current PHONE: [phone] AKIRA JACKSON Physician Rand Tacker 03/11/2021-Current PHONE: [phone] [facility] Current PHONE: Unknown Robin has no Care Guidelines for this patient. Care History Medical/Surgical 05/03/2018 [facility] - CHW CONTACTED PATIENT- PATIENT [...] THE APT. E.D. VISIT COUNT (12 MO.) 6 [facility] [place] TOTAL 6 NOTE: Visits indicate total known visits. ED/UCC VISIT TRACKING (12 MO.) 05/24/2021 22:24 [facility] [place] TYPE: Emergency COMPLAINT: - DIZZINESS 05/06/2021 14:57 [facility] TYPE: Emergency COMPLAINT: - ABD PAIN 03/07/2021 13:02 [facility] [place] TYPE: Emergency COMPLAINT: - SOB HEADACHE DIAGNOSES: - watermaster (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 - Type 2 diabetes mellitus without complications - Abdominal distension (gaseous) - Hyperlipidemia, unspecified - Migraine, unspecified, not intractable, without status migrainosus - watermaster (current) use of oral hypoglycemic drugs - Old myocardial infarction - Other long haul truck driver (current) drug therapy - Nausea with vomiting, unspecified - Psoriasis, unspecified - Chronic systolic (congestive) heart failure - correction (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 - Other chest pain - Personal history of nicotine dependence 02/08/2021 22:11 [facility] [place] TYPE: Emergency COMPLAINT: - RASH DIAGNOSES: - watermaster (current) use of oral hypoglycemic drugs - Other jail (current) drug therapy - correction (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 - Type 2 diabetes mellitus without complications - watermaster (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 - Hyperlipidemia, unspecified - Personal history of nicotine dependence - Old myocardial infarction - Atherosclerotic heart disease of [place] coronary artery without angina pectoris - Rash and other nonspecific skin eruption 12/04/2020 14:30 [facility] [place] TYPE: Emergency COMPLAINT: - CONFUSED, POSS BLOOD SUGAR ISSUE DIAGNOSES: - watermaster (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 - watermaster (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 - Personal history of nicotine dependence - Type 2 diabetes mellitus with diabetic neuropathy, unspecified - Old myocardial infarction - Blood alcohol level of less than 20 mg/100 ml - watermaster (current) use of systemic steroids - Other jail (current) drug therapy - Hyperlipidemia, unspecified - Weakness - COVID-19 - Atherosclerotic heart disease of [place] coronary artery without angina pectoris - Migraine, unspecified, not intractable, without status migrainosus 07/16/2020 18:36 [facility] [place] TYPE: Emergency COMPLAINT: - RT FOOT PAIN/ NO INJURY DIAGNOSES: - Old myocardial infarction - Atherosclerotic heart disease of [place] coronary artery without angina pectoris - Other jail (current) drug therapy - Personal history of nicotine dependence - correction (current) use of opiate analgesic - Cellulitis of right toe - Type 2 diabetes mellitus without complications - correction (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 - watermaster (current) use of systemic steroids - Hyperlipidemia, unspecified INPATIENT VISIT TRACKING (12 MO.) 05/06/2021 18:[address] [facility] [place] TYPE: Medical Surgical COMPLAINT: - SEPSIS DIAGNOSES: - Metabolic encephalopathy - Personal history of nicotine dependence - Other jail (current) drug therapy - Presence of coronary angioplasty implant and graft - Acute kidney failure, unspecified - Chronic systolic (congestive) heart failure - Type 2 diabetes mellitus without complications - Bipolar disorder, unspecified - Cardiomyopathy, unspecified - Adverse effect of other opioids, initial encounter - Other jail (current) drug therapy - Other specified postprocedural states - watermaster (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 - Severe sepsis without septic shock - Type 2 diabetes mellitus without complications - Chronic systolic (congestive) heart failure - Opioid dependence, uncomplicated - Gastro-esophageal reflux disease without esophagitis - Severe sepsis without septic shock - Other specified postprocedural states - Hyperlipidemia, unspecified - Bipolar disorder, unspecified - Personal history of nicotine dependence - Noninfective gastroenteritis and colitis, unspecified - Chronic pain syndrome - Old myocardial infarction - Chronic pain syndrome - Migraine, unspecified, not intractable, without status migrainosus - Opioid dependence, uncomplicated - Adverse effect of other opioids, initial encounter - Metabolic encephalopathy - Sepsis, unspecified organism - Migraine, unspecified, not intractable, without status migrainosus - Noninfective gastroenteritis and colitis, unspecified - Acute kidney failure with tubular necrosis - Acute kidney failure, unspecified - Atherosclerotic heart disease of [place] coronary artery without angina pectoris - Presence of coronary angioplasty implant and graft - Presence of aortocoronary bypass graft - watermaster (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 - Atherosclerotic heart disease of [place] coronary artery without angina pectoris - Cardiomyopathy, unspecified - Presence of aortocoronary bypass graft - Gastro-esophageal reflux disease without esophagitis - Old myocardial infarction - Hyperlipidemia, unspecified [id number]
--- NOTE | 2021-05-26 14:23 | EKG ---
[facility] [address] [facility] [place] [address] Signed Sinus rhythm with frequent premature ventricular complexes Left axis deviation Incomplete right bundle branch block Anteroseptal infarct , age undetermined Abnormal ECG When compared with ECG of 06-MAY-2021 15:11, premature ventricular complexes are now present Incomplete right bundle branch block has replaced Nonspecific intraventricular block Anteroseptal infarct is now present Confirmed by ALTA MORALES MD ([id number]) on 05/26/2021 2:23:17 PM Electronically Signed By: ALTA MORALES MD 05/26/21 1423 PATIENT NAME: MIGUELANGEL TRACY Electrocardiogram DATE OF : 58 PHYSICIAN: ALTA MORALES MD REPORT #: [id number] REPORT IS CONFIDENTIAL AND NOT TO BE RELEASED WITHOUT AUTHORIZATION
[2021-07-24] MEDS ORDERED: VENTOLIN HFA18 GM INH (22:25)
[2021-07-25] MEDS ORDERED: CYCLOBENZAPRINE10 MG PO (02:09)
== END 2021-05-25 02:25 | disposition home or self-care (01) ==
LOC: ED 22:24
DX: K59.00 Constipation, unspecified (principal); R06.00 Dyspnea, unspecified; I25.2 Old myocardial infarction; G43.909 Migraine, unspecified, not intractable, without status migrainosus; E78.5 Hyperlipidemia, unspecified; L40.9 Psoriasis, unspecified; Z87.891 Personal history of nicotine dependence; Z79.899 Other long term (current) drug therapy; Z79.82 Long term (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; Z79.4 Long term (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; Z20.822 Contact with and (suspected) exposure to COVID-19
CPT/HCPCS: 36415; 71045; 74177; 80053; 81001; 83690; 83735; 85025; 93005; 93010; 99285-25; A9270; Q9967; U0003

== ENCOUNTER 2021-12-01 21:54 | Emergency (ER) | payer OTHER ==
[~2021-12-01] VITALS: Ht 175.3 cm; Wt 120.0 kg
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
[2021-12-01] MEDS ORDERED: BACTRIM DS TAB1 EACH PO ×2 (23:29→23:48)
== END 2021-12-01 23:53 | disposition home or self-care (01) ==
LOC: ED 21:54
DX: S61.452A Open bite of left hand, initial encounter (principal); W55.81XA Bitten by other mammals, initial encounter; I25.2 Old myocardial infarction; E78.5 Hyperlipidemia, unspecified; Z87.891 Personal history of nicotine dependence; Z79.899 Other long term (current) drug therapy; Z79.84 Long term (current) use of oral hypoglycemic drugs; Z79.4 Long term (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
CPT/HCPCS: 90471; 90715; 99283-25; A9270

== ENCOUNTER 2022-03-31 16:26 | Emergency (ER) | payer OTHER ==
[~2022-03-31] VITALS: Ht 175.3 cm; Wt 120.0 kg
--- OUTSIDE RECORDS SUMMARY | 2022-03-31 16:28 | XMS ---
PreManage Notification: MIGUELANGEL TRACY Security Wood Room Supervisor Events No recent Security Events currently on file CRITERIA MET - [facility] -, Kathie- Dentist: [employer] [facility] PHONE: [phone] Katie Gomez Grinder Operator Surface Tool/Waiter/Waitress Second Class 01/16/2022-Current PHONE: [phone] AKIRA JACKSON Physician Equipment Maintenance Engineer 03/11/2021-Current PHONE: [phone] [facility] PHONE: Unknown Robin has no Care Guidelines for this patient. Care History Medical/Surgical 05/03/2018 [facility] - [facility]W CONTACTED PATIENT- PATIENT DOES NOT HAVE A PCP CURRENTLY. - CHW PROVIDED KATHIE PRIMARY CARE CONTACT TO SCHEDULE AN APT TO [facility] ESTABLISHED WITH A PROVIDER. - CHW EDUCATED ON ED VS PCP USAGE AND DISCUSSED THE IMPORTANCE OF ESTABLISHING CARE WITH A PROVIDER. - PATIENT STATED HE WOULD CONTACT THE CLINIC HE DID NOT WANT ASSISTANCE WITH SETTING UP THE APT. E.D. VISIT COUNT (12 MO.) 5 [facility] TOTAL 5 NOTE: Visits indicate total known visits. 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 - Open bite of left hand, initial encounter - [facility] (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 - Bitten by other mammals, initial encounter - Personal history of nicotine dependence - Other mcfp (current) drug therapy - Old myocardial infarction 07/24/2021 22:08 [facility] TYPE: Emergency COMPLAINT: - LOW BLOOD SUGAR, LOW PULSE DIAGNOSES: - Other 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 operator (current) drug therapy - Hypoglycemia, unspecified - Personal history of nicotine dependence - Other chest pain - Old myocardial infarction - Biventricular heart failure 05/24/2021 22:24 [facility] TYPE: Emergency COMPLAINT: - DIZZINESS DIAGNOSES: - Migraine, unspecified, not intractable, without status migrainosus - [facility] (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 - Old myocardial infarction - Contact with and (suspected) exposure to COVID-19 - Psoriasis, unspecified - Hyperlipidemia, unspecified - Unspecified abdominal pain - Other mcfp (current) drug therapy - 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 - Constipation, unspecified - Dyspnea, unspecified - Personal history of nicotine dependence 05/06/2021 14:57 [facility] TYPE: Emergency COMPLAINT: - ABD PAIN INPATIENT VISIT TRACKING (12 MO.) 05/06/2021 18:15 [facility] TYPE: Medical Surgical COMPLAINT: - SEPSIS DIAGNOSES: - 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 accountant (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 - Cardiomyopathy, unspecified - Acute kidney failure, unspecified - Hyperlipidemia, unspecified - Chronic systolic (congestive) heart failure - Metabolic encephalopathy - Presence of coronary angioplasty implant and graft - Type 2 diabetes mellitus without complications - Personal history of nicotine dependence - Gastro-esophageal reflux disease without esophagitis - Severe sepsis without septic shock - Opioid dependence, uncomplicated - Noninfective gastroenteritis and colitis, unspecified - Acute kidney failure, unspecified - Hyperlipidemia, unspecified - Cardiomyopathy, unspecified - Other specified postprocedural states - Chronic pain syndrome - Other terminal operator (current) drug therapy - Severe sepsis without septic shock - Noninfective gastroenteritis and colitis, unspecified - Contact with and (suspected) exposure to COVID-19 - Adverse effect of other opioids, initial encounter - Chronic pain syndrome - CHCF (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 - Opioid dependence, uncomplicated - Sepsis, unspecified organism - Presence of aortocoronary bypass graft - Bipolar disorder, unspecified - Old myocardial infarction - Type 2 diabetes mellitus without complications - Adverse effect of other opioids, initial encounter - Atherosclerotic heart disease of [place] coronary artery without angina pectoris - Chronic systolic (congestive) heart failure - Bipolar disorder, unspecified - Presence of aortocoronary bypass graft - Metabolic encephalopathy - Migraine, unspecified, not intractable, without status migrainosus - Presence of coronary angioplasty implant and graft - Other specified postprocedural states - Acute kidney failure with tubular necrosis - Atherosclerotic heart disease of [place] coronary artery without angina pectoris - Other terminal operator (current) drug therapy - Old myocardial infarction - Personal history of nicotine dependence - Gastro-esophageal reflux disease without esophagitis - Migraine, unspecified, not intractable, without status migrainosus [email or web address]
== END 2022-03-31 18:16 | disposition home or self-care (01) ==
LOC: ED 16:26
DX: R53.1 Weakness (principal); I25.2 Old myocardial infarction; E78.5 Hyperlipidemia, unspecified; Z87.891 Personal history of nicotine dependence; Z79.899 Other long term (current) drug therapy; Z79.82 Long term (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; Z79.891 Long term (current) use of opiate analgesic; Z79.4 Long term (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; Z79.84 Long term (current) use of oral hypoglycemic drugs
CPT/HCPCS: 36415; 80053; 81003; 84484; 85025; 99285-25; G0480

== ENCOUNTER 2022-10-09 09:39 | Emergency (ER) | payer OTHER ==
[~2022-10-09] VITALS: Ht 175.3 cm; Wt 108.8 kg
--- OUTSIDE RECORDS SUMMARY | ~2022-10-09 | XMS | Continuity of Care Document ---
Demographics + + + | Address | [address] | | | [place] [address] | + + + | Preferred Language | Unknown | + + + | Marital Status | | + + + | Mandaen Affiliation | Unknown | + + + | Race | White | + + + | Ethnic Group | Not or | + + + Author + + + | Author | [facility] | + + + | Organization | [facility] | + + + | Address | [address] | | | [place] [address] | + + + | Phone | | + + + Care Team Providers + + + + | Care Billing And Accounting Staff Assistant Name | Role | Phone | + + + + Unavailable | Unavailable | + + + + Unavailable | Unavailable | + + + + Unavailable | Unavailable | + + + + Unavailable | Unavailable | + + + + Unavailable | Unavailable | + + + + Allergies and Intolerances + + + + + + | date | description | facility | reaction | severity | + + + + + + | (no date) | No Known Drug | [facility] | (no reaction) | (no severity) | | | Allergies | | | | + + + + + + Encounters No information. Functional Status No information. Immunizations + + + + | date | description | facility | + + + + | 2021-12-01 00:00 | Tdap | [facility] | + + + + | 2021-12-01 00:00 | Tdap | [facility] | + + + + | 2021-12-01 00:00 | Tdap | [facility] | + + + + Medications + + + + | date | description | facility | + + + + | 2021-12-01 00:00 | DIPHENHYDRAMINE HCL | [facility] | + + + + | 2022-03-31 00:00 | DIPHENHYDRAMINE HCL | [facility] | + + + + | 2022-09-13 00:00 | DIPHENHYDRAMINE HCL | [facility] | + + + + | 2021-12-01 00:00 | DIVALPROEX SODIUM | [facility] | + + + + | 2022-03-31 00:00 | DIVALPROEX SODIUM | [facility] | + + + + | 2022-09-13 00:00 | DIVALPROEX SODIUM | [facility] | + + + + | 2021-12-01 00:00 | EMPAGLIFLOZIN | [facility] | + + + + | 2022-03-31 00:00 | EMPAGLIFLOZIN | [facility] | + + + + | 2022-09-13 00:00 | EMPAGLIFLOZIN | [facility] | + + + + | 2021-12-01 00:00 | DULAGLUTIDE | [facility] | + + + + | 2022-03-31 00:00 | DULAGLUTIDE | [facility] | + + + + | 2022-09-13 00:00 | DULAGLUTIDE | [facility] | + + + + | 2020-07-16 00:00 | DOXYCYCLINE HYCLATE | [facility] | + + + + | 2020-07-16 00:00 | DOXYCYCLINE HYCLATE | [facility] | + + + + | 2020-07-16 00:00 | DOXYCYCLINE HYCLATE | [facility] | + + + + | 2021-12-01 00:00 | Insulin Aspart | [facility] | + + + + | 2022-03-31 00:00 | Insulin Aspart | [facility] | + + + + | 2022-09-13 00:00 | Insulin Aspart | [facility] | + + + + | 2021-12-01 00:00 | INSULIN ASPART | [facility] | + + + + | 2022-03-31 00:00 | INSULIN ASPART | [facility] | + + + + | 2022-09-13 00:00 | INSULIN ASPART | [facility] | + + + + | 2021-12-01 00:00 | SACUBITRIL/VALSARTAN | [facility] | + + + + | 2022-03-31 00:00 | SACUBITRIL/VALSARTAN | [facility] | + + + + | 2022-09-13 00:00 | SACUBITRIL/VALSARTAN | [facility] | + + + + | 2021-12-01 00:00 | INSULIN DEGLUDEC | [facility] | + + + + | 2022-03-31 00:00 | INSULIN DEGLUDEC | [facility] | + + + + | 2022-09-13 00:00 | INSULIN DEGLUDEC | [facility] | + + + + | 2021-12-01 00:00 | POTASSIUM CHLORIDE | [facility] | + + + + | 2022-03-31 00:00 | POTASSIUM CHLORIDE | [facility] | + + + + | 2022-09-13 00:00 | POTASSIUM CHLORIDE | [facility] | + + + + | 2021-12-01 00:00 | BUMETANIDE | [facility] | + + + + | 2022-03-31 00:00 | BUMETANIDE | [facility] | + + + + | 2022-09-13 00:00 | BUMETANIDE | [facility] | + + + + | 2021-12-01 00:00 | METOLAZONE | [facility] | + + + + | 2022-03-31 00:00 | METOLAZONE | [facility] | + + + + | 2022-09-13 00:00 | METOLAZONE | [facility] | + + + + | 2021-12-01 00:00 | NITROGLYCERIN | [facility] | + + + + | 2022-03-31 00:00 | NITROGLYCERIN | [facility] | + + + + | 2022-09-13 00:00 | NITROGLYCERIN | [facility] | + + + + | 2017-01-18 00:00 | ONDANSETRON HCL | [facility] | + + + + | 2017-01-18 00:00 | ONDANSETRON HCL | [facility] | + + + + | 2017-01-18 00:00 | ONDANSETRON HCL | [facility] | + + + + | 2021-12-01 00:00 | MAGNESIUM OXIDE | [facility] | + + + + | 2022-03-31 00:00 | MAGNESIUM OXIDE | [facility] | + + + + | 2022-09-13 00:00 | MAGNESIUM OXIDE | [facility] | + + + + | 2021-12-01 00:00 | GLIMEPIRIDE | [facility] | + + + + | 2022-03-31 00:00 | GLIMEPIRIDE | [facility] | + + + + | 2022-09-13 00:00 | GLIMEPIRIDE | [facility] | + + + + | 2021-12-01 00:00 | FUROSEMIDE | [facility] | + + + + | 2022-03-31 00:00 | FUROSEMIDE | [facility] | + + + + | 2022-09-13 00:00 | FUROSEMIDE | [facility] | + + + + | 2021-12-01 00:00 | | [facility] | | | ASPIRIN/ACETAMINOPHEN/CAFFE | | | | INE | | + + + + | 2022-03-31 00:00 | | [facility] | | | ASPIRIN/ACETAMINOPHEN/CAFFE | | | | INE | | + + + + | 2022-09-13 00:00 | | [facility] | | | ASPIRIN/ACETAMINOPHEN/CAFFE | | | | INE | | + + + + | 2017-04-24 00:00 | LEVOFLOXACIN | [facility] | + + + + | 2017-04-24 00:00 | LEVOFLOXACIN | [facility] | + + + + | 2017-04-24 00:00 | LEVOFLOXACIN | [facility] | + + + + | 2021-12-01 00:00 | CARVEDILOL | [facility] | + + + + | 2022-03-31 00:00 | CARVEDILOL | [facility] | + + + + | 2022-09-13 00:00 | CARVEDILOL | [facility] | + + + + | 2021-12-01 00:00 | CLOPIDOGREL BISULFATE | [facility] | + + + + | 2022-03-31 00:00 | CLOPIDOGREL BISULFATE | [facility] | + + + + | 2022-09-13 00:00 | CLOPIDOGREL BISULFATE | [facility] | + + + + | 2021-12-01 00:00 | | [facility] | | | BUTALB/ACETAMINOPHEN/CAFFEI | | | | NE | | + + + + | 2022-03-31 00:00 | | [facility] | | | BUTALB/ACETAMINOPHEN/CAFFEI | | | | NE | | + + + + | 2022-09-13 00:00 | | [facility] | | | BUTALB/ACETAMINOPHEN/CAFFEI | | | | NE | | + + + + | 2022-09-13 00:00 | Naloxone HCl | [facility] | + + + + | 2021-12-01 00:00 | CLINDAMYCIN HCL | [facility] | + + + + | 2022-03-31 00:00 | CLINDAMYCIN HCL | [facility] | + + + + | 2022-09-13 00:00 | CLINDAMYCIN HCL | [facility] | + + + + | 2021-12-01 00:00 | FOLIC ACID | [facility] | + + + + | 2022-03-31 00:00 | FOLIC ACID | [facility] | + + + + | 2022-09-13 00:00 | FOLIC ACID | [facility] | + + + + | 2021-12-01 00:00 | GABAPENTIN | [facility] | + + + + | 2022-03-31 00:00 | GABAPENTIN | [facility] | + + + + | 2022-09-13 00:00 | GABAPENTIN | [facility] | + + + + | 2021-12-01 00:00 | GLYBURIDE | [facility] | + + + + | 2022-03-31 00:00 | GLYBURIDE | [facility] | + + + + | 2022-09-13 00:00 | GLYBURIDE | [facility] | + + + + | 2021-12-01 00:00 | OLANZAPINE | [facility] | + + + + | 2022-03-31 00:00 | OLANZAPINE | [facility] | + + + + | 2022-09-13 00:00 | OLANZAPINE | [facility] | + + + + | 2021-12-01 00:00 | FENOFIBRATE,MICRONIZED | [facility] | + + + + | 2022-03-31 00:00 | FENOFIBRATE,MICRONIZED | [facility] | + + + + | 2022-09-13 00:00 | FENOFIBRATE,MICRONIZED | [facility] | + + + + | 2021-12-01 00:00 | QUETIAPINE FUMARATE | [facility] | + + + + | 2022-03-31 00:00 | QUETIAPINE FUMARATE | [facility] | + + + + | 2022-09-13 00:00 | QUETIAPINE FUMARATE | [facility] | + + + + | 2017-04-24 00:00 | METHYLPREDNISOLONE | [facility] | + + + + | 2017-04-24 00:00 | METHYLPREDNISOLONE | [facility] | + + + + | 2017-04-24 00:00 | METHYLPREDNISOLONE | [facility] | + + + + | 2021-12-01 00:00 | METHYLPREDNISOLONE | [facility] | + + + + | 2022-03-31 00:00 | METHYLPREDNISOLONE | [facility] | + + + + | 2022-09-13 00:00 | METHYLPREDNISOLONE | [facility] | + + + + | 2019-04-16 00:00 | AMOXICILLIN/POTASSIUM CLAV | [facility] | | | | | + + + + | 2019-04-16 00:00 | AMOXICILLIN/POTASSIUM CLAV | [facility] | | | | | + + + + | 2019-04-16 00:00 | AMOXICILLIN/POTASSIUM CLAV | [facility] | | | | | + + + + | 2021-12-01 00:00 | ASPIRIN | [facility] | + + + + | 2022-03-31 00:00 | ASPIRIN | [facility] | + + + + | 2022-09-13 00:00 | ASPIRIN | [facility] | + + + + | 2021-07-25 00:00 | CYCLOBENZAPRINE HCL | [facility] | + + + + | 2021-07-25 00:00 | CYCLOBENZAPRINE HCL | [facility] | + + + + | 2021-07-25 00:00 | CYCLOBENZAPRINE HCL | [facility] | + + + + | 2021-12-01 00:00 | INSULIN | [facility] | | | ARNOLDHUM.REC.ANLOG | | + + + + | 2022-03-31 00:00 | INSULIN | [facility] | | | ARNOLDHUM.REC.ANLOG | | + + + + | 2022-09-13 00:00 | INSULIN | [facility] | | | GLAGEORGINAHUM.REC.ANLOG | | + + + + | 2021-12-01 00:00 | | [facility] | | | SULFAMETHOXAZOLE/TRIMETHOPR | | | | IM DS | | + + + + | 2021-12-01 00:00 | | [facility] | | | SULFAMETHOXAZOLE/TRIMETHOPR | | | | IM DS | | + + + + | 2021-12-01 00:00 | | [facility] | | | SULFAMETHOXAZOLE/TRIMETHOPR | | | | IM DS | | + + + + | 2021-12-01 00:00 | PROPRANOLOL HCL | [facility] | + + + + | 2022-03-31 00:00 | PROPRANOLOL HCL | [facility] | + + + + | 2022-09-13 00:00 | PROPRANOLOL HCL | [facility] | + + + + | 2021-12-01 00:00 | AMITRIPTYLINE HCL | [facility] | + + + + | 2022-03-31 00:00 | AMITRIPTYLINE HCL | [facility] | + + + + | 2022-09-13 00:00 | AMITRIPTYLINE HCL | [facility] | + + + + | 2021-12-01 00:00 | AMITRIPTYLINE HCL | [facility] | + + + + | 2022-03-31 00:00 | AMITRIPTYLINE HCL | [facility] | + + + + | 2022-09-13 00:00 | AMITRIPTYLINE HCL | [facility] | + + + + | 2021-12-01 00:00 | ALBUTEROL SULFATE | [facility] | + + + + | 2022-03-31 00:00 | ALBUTEROL SULFATE | [facility] | + + + + | 2022-09-13 00:00 | ALBUTEROL SULFATE | [facility] | + + + + | 2021-12-01 00:00 | ROSUVASTATIN CALCIUM | [facility] | + + + + | 2022-03-31 00:00 | ROSUVASTATIN CALCIUM | [facility] | + + + + | 2022-09-13 00:00 | ROSUVASTATIN CALCIUM | [facility] | + + + + | 2021-12-01 00:00 | metFORMIN HCL | [facility] | + + + + | 2022-03-31 00:00 | metFORMIN HCL | [facility] | + + + + | 2022-09-13 00:00 | metFORMIN HCL | [facility] | + + + + | 2021-12-01 00:00 | METFORMIN HCL | [facility] | + + + + | 2022-03-31 00:00 | METFORMIN HCL | [facility] | + + + + | 2022-09-13 00:00 | METFORMIN HCL | [facility] | + + + + | 2021-12-01 00:00 | MORPHINE SULFATE | [facility] | + + + + | 2022-03-31 00:00 | MORPHINE SULFATE | [facility] | + + + + | 2022-09-13 00:00 | MORPHINE SULFATE | [facility] | + + + + | 2021-12-01 00:00 | MORPHINE SULFATE | [facility] | + + + + | 2022-03-31 00:00 | MORPHINE SULFATE | [facility] | + + + + | 2022-09-13 00:00 | MORPHINE SULFATE | [facility] | + + + + Problems + + + + | date | description | facility | + + + + | 2016-03-26 00:00 | Uncontrolled type 2 | [facility] | | | diabetes mellitus | | + + + + | 2016-03-26 00:00 | Uncontrolled type 2 | [facility] | | | diabetes mellitus | | + + + + | 2016-03-26 00:00 | Uncontrolled type 2 | [facility] | | | diabetes mellitus | | + + + + | 2016-03-26 00:00 | Chest pain | [facility] | + + + + | 2016-03-26 00:00 | Chest pain | [facility] | + + + + | 2016-03-26 00:00 | Chest pain | [facility] | + + + + | 2016-03-26 00:00 | Abdominal pain | [facility] | + + + + | 2016-03-26 00:00 | Abdominal pain | [facility] | + + + + | 2016-03-26 00:00 | Abdominal pain | [facility] | + + + + | 2016-03-26 00:00 | Vomiting | [facility] | + + + + | 2016-03-26 00:00 | Vomiting | [facility] | + + + + | 2016-03-26 00:00 | Vomiting | [facility] | + + + + | 2017-01-17 00:00 | Gastroenteritis | [facility] | + + + + | 2017-01-17 00:00 | Gastroenteritis | [facility] | + + + + | 2017-01-17 00:00 | Gastroenteritis | [facility] | + + + + | 2017-01-17 00:00 | Aspiration into airway | [facility] | + + + + | 2017-01-17 00:00 | Aspiration into airway | [facility] | + + + + | 2017-01-17 00:00 | Aspiration into airway | [facility] | + + + + | 2017-04-24 00:00 | Chronic bronchitis | [facility] | + + + + | 2017-04-24 00:00 | Chronic bronchitis | [facility] | + + + + | 2017-04-24 00:00 | Chronic bronchitis | [facility] | + + + + | 2017-04-24 00:00 | Nonspecific chest pain | [facility] | + + + + | 2017-04-24 00:00 | Nonspecific chest pain | [facility] | + + + + | 2017-04-24 00:00 | Nonspecific chest pain | [facility] | + + + + | 2018-04-30 00:00 | Acute bronchitis | [facility] | + + + + | 2018-04-30 00:00 | Acute bronchitis | [facility] | + + + + | 2018-04-30 00:00 | Acute bronchitis | [facility] | + + + + | 2018-08-17 00:00 | Leukocytosis | [facility] | + + + + | 2018-08-17 00:00 | Leukocytosis | [facility] | + + + + | 2018-08-17 00:00 | Leukocytosis | [facility] | + + + + | 2018-08-17 00:00 | Hypoglycemia | [facility] | + + + + | 2018-08-17 00:00 | Hypoglycemia | [facility] | + + + + | 2018-08-17 00:00 | Hypoglycemia | [facility] | + + + + | 2019-03-19 00:00 | Acute gastroenteritis | [facility] | + + + + | 2019-03-19 00:00 | Acute gastroenteritis | [facility] | + + + + | 2019-03-19 00:00 | Acute gastroenteritis | [facility] | + + + + | 2019-04-12 00:00 | Acute metabolic | [facility] | | | encephalopathy | | + + + + | 2019-04-12 00:00 | Acute metabolic | [facility] | | | encephalopathy | | + + + + | 2019-04-12 00:00 | Acute metabolic | [facility] | | | encephalopathy | | + + + + | 2019-04-13 00:00 | Metabolic encephalopathy | [facility] | + + + + | 2019-04-13 00:00 | Metabolic encephalopathy | [facility] | + + + + | 2019-04-13 00:00 | Metabolic encephalopathy | [facility] | + + + + | 2019-04-13 00:00 | Hypotension | [facility] | + + + + | 2019-04-13 00:00 | Hypotension | [facility] | + + + + | 2019-04-13 00:00 | Hypotension | [facility] | + + + + | 2020-07-16 00:00 | Cellulitis of second toe | [facility] | | | of right foot | | + + + + | 2020-07-16 00:00 | Cellulitis of second toe | [facility] | | | of right foot | | + + + + | 2020-07-16 00:00 | Cellulitis of second toe | [facility] | | | of right foot | | + + + + | 2020-12-04 00:00 | Infection due to severe | [facility] | | | acute respiratory syndrome | | | | coronavirus 2 (SARS-CoV-2) | | + + + + | 2020-12-04 00:00 | Infection due to severe | [facility] | | | acute respiratory syndrome | | | | coronavirus 2 (SARS-CoV-2) | | + + + + | 2020-12-04 00:00 | Infection due to severe | [facility] | | | acute respiratory syndrome | | | | coronavirus 2 (SARS-CoV-2) | | + + + + | 2021-03-07 00:00 | Abdominal distension | [facility] | + + + + | 2021-03-07 00:00 | Abdominal distension | [facility] | + + + + | 2021-03-07 00:00 | Abdominal distension | [facility] | + + + + | 2021-05-25 00:00 | Constipation | [facility] | + + + + | 2021-05-25 00:00 | Constipation | [facility] | + + + + | 2021-05-25 00:00 | Constipation | 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 | | | measurement | | + + + + | 2021-07-25 00:00 | Low blood glucose | [facility] | | | measurement | | + + + + | 2021-07-25 00:00 | Low blood glucose | [facility] | | | measurement | | + + + + | 2021-07-25 00:00 | Chest wall pain | [facility] | + + + + | 2021-07-25 00:00 | Chest wall pain | [facility] | + + + + | 2021-07-25 00:00 | Chest wall pain | [facility] | + + + + | 2021-12-01 00:00 | Bite by animal | [facility] | + + + + | 2021-12-01 00:00 | Bite by animal | [facility] | + + + + | 2021-12-01 00:00 | Bite by animal | [facility] | + + + + | 2022-03-31 00:00 | Weakness | [facility] | + + + + | 2022-03-31 00:00 | Weakness | [facility] | + + + + | 2022-03-31 16:26 | HYPERLIPIDEMIA, | [facility] | | | UNSPECIFIED | | + + + + | 2022-03-31 16:26 | OLD MYOCARDIAL INFARCTION | [facility] | + + + + | 2022-03-31 16:26 | WEAKNESS | [facility] | + + + + | 2022-03-31 16:26 | MOTOR REBUILDER (CURRENT) USE OF | [facility] | | | INSULIN | | + + + + | 2022-03-31 16:26 | SNF (CURRENT) USE OF | [facility] | | | ASPIRIN | | + + + + | 2022-03-31 16:26 | MOTOR REBUILDER (CURRENT) USE OF | [facility] | | | ORAL HYPOGLYCEMIC DRUGS | | + + + + | 2022-03-31 16:26 | SNF (CURRENT) USE OF | [facility] | | | OPIATE ANALGESIC | | + + + + | 2022-03-31 16:26 | OTHER SNF (CURRENT) | [facility] | | | DRUG THERAPY | | + + + + | 2022-03-31 16:26 | PERSONAL HISTORY OF | [facility] | | | NICOTINE DEPENDENCE | | + + + + | 2022-08-01 13:23 | MIGRAINE, UNSP, NOT | [facility] | | | INTRACTABLE, WITHOUT | | + + + + | 2022-08-01 13:23 | SPONDYLOSIS W/O MYELOPATHY | [facility] | | | OR RADICULOPATHY, LUMBA | | + + + + | 2022-08-01 13:23 | COLLAPSED VERTEBRA, NEC, | [facility] | | | THORACOLUMBAR REGION, INI | | + + + + | 2022-08-01 13:23 | 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, LUMBAR REGION | | | | | | + + + + | 2022-08-01 13:23 | OTHER LOW BACK PAIN | [facility] | + + + + | 2022-09-12 20:15 | TYPE 2 DIABETES MELLITUS | [facility] | | | WITHOUT COMPLICATIONS | | + + + + | 2022-09-12 20:15 | CHRONIC PAIN SYNDROME | [facility] | + + + + | 2022-09-12 20:15 | HYPERTENSIVE HEART DISEASE | [facility] | | | WITH HEART FAILURE | | + + + + | 2022-09-12 20:15 | 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 | | + + + + | 2022-09-12 20:15 | UNSPECIFIED SYSTOLIC | [facility] | | | (CONGESTIVE) HEART FAILURE | | + + + + | 2022-09-12 20:15 | HYPOTENSION, UNSPECIFIED | [facility] | + + + + | 2022-09-12 20:15 | ALTERED MENTAL STATUS, | [facility] | | | UNSPECIFIED | | + + + + | 2022-09-12 20:15 | MOTOR REBUILDER (CURRENT) USE OF | [facility] | | | INSULIN | | + + + + | 2022-09-12 20:15 | MOTOR REBUILDER (CURRENT) USE OF | [facility] | | | ORAL HYPOGLYCEMIC DRUGS | | + + + + | 2022-09-12 20:15 | OTHER SNF (CURRENT) | [facility] | | | DRUG THERAPY | | + + + + | 2022-09-12 20:15 | 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 Results/Labs +--------+--------+ +---------+--------+---------+ | test | date | facility | value | unit | notes | +--------+--------+ +---------+--------+---------+ + + | Result panel 1 | + + + + + +-------+ + + | | 2022-03-31 | [facility] | 8.9 | (missing) | (missing) | | (unavailable | 16:35:08 [facility] | | | | + + + +-------+ + + + + | Result panel 2 | + + + + + +--------+ + + | | 2022-03-31 | [facility] | 4.98 | (missing) | (missing) | | (unavailable | 16:35:08 [facility] | | | | + + + +--------+ + + + + | Result panel 3 | + + + + + +--------+ + + | | 2022-03-31 | [facility] | 13.8 | (missing) | (missing) | | (unavailable | 16:35:08 [facility] | | | | + + + +--------+ + + + + | Result panel 4 | + + + + + +--------+ + + | | 2022-03-31 | [facility] | 41.2 | (missing) | (missing) | | (unavailable | 16:35:08 [facility] | | | | + + + +--------+ + + + + | Result panel 5 | + + + + + +--------+ + + | | 2022-03-31 | [facility] | 82.7 | (missing) | (missing) | | (unavailable | 16:35:08 [facility] | | | | + + + +--------+ + + + + | Result panel 6 | + + + + + +--------+ + + | | 2022-03-31 | [facility] | 27.8 | (missing) | (missing) | | (unavailable | 16:35:08 [facility] | | | | + + + +--------+ + + + + | Result panel 7 | + + + + + +--------+ + + | | 2022-03-31 | [facility] | 33.6 | (missing) | (missing) | | (unavailable | 16:35:08 [facility] | | | | + + + +--------+ + + + + | Result panel 8 | + + + + + +--------+ + + | | 2022-03-31 | [facility] | 14.2 | (missing) | (missing) | | (unavailable | 16:35:08 | [facility] | | | | + + + +--------+ + + + + | Result panel 9 | + + + + + +-------+ + + | | 2022-03-31 | [facility] | 182 | (missing) | (missing) | | (unavailable | 16:35:08 | [facility] | | | | + + + +-------+ + + + + | Result panel 10 | + + + + + +--------+ + + | | 2022-03-31 | [facility] | 78.5 | (missing) | (missing) | | (unavailable | 16:35:08 | [facility] | | | | + + + +--------+ + + + + | Result panel 11 | + + + + + +--------+ + + | | 2022-03-31 | [facility] | 11.7 | (missing) | (missing) | | (unavailable | 16:35:08 | [facility] | | | | + + + +--------+ + + + + | Result panel 12 | + + + + + +-------+ + + | | 2022-03-31 | [facility] | 5.3 | (missing) | (missing) | | (unavailable | 16:35:08 | [facility] | | | | + + + +-------+ + + + + | Result panel 13 | + + + + + +-------+ + + | | 2022-03-31 | [facility] | 3.4 | (missing) | (missing) | | (unavailable | 16:35:08 | [facility] | | | | + + + +-------+ + + + + | Result panel 14 | + + + + + +-------+ + + | | 2022-03-31 | [facility] [facility] | 1.1 | (missing) | (missing) | | (unavailable | 16:35:08 | [facility] | | | | + + + +-------+ + + + + | Result panel 15 | + + + + + + + + + | | 2022-03-31 | [facility] | NEGATIVE | (missing) | (missing) | | (unavailable | 16:46:08 [facility] | | | + + + + + + + + + | Result panel 16 | + + + + + + + + + | | 2022-03-31 | [facility] | POSITIVE | (missing) | (missing) | | (unavailable | 16:46:08 [facility] | | | + + + + + + + + + | Result panel 17 | + + + + + + + + + | | 2022-03-31 | [facility] | NEGATIVE | (missing) | (missing) | | (unavailable | 16:46:08 [facility] | | | + + + + + + + + + | Result panel 18 | + + + + + + + + + | | 2022-03-31 | [facility] | NEGATIVE | (missing) | (missing) | | (unavailable | 16:46:08 [facility] | | | + + + + + + + + + | Result panel 19 | + + + + + + + + + | | 2022-03-31 | [facility] | NEGATIVE | (missing) | (missing) | | (unavailable | 16:46:08 [facility] | | | + + + + + + + + + | Result panel 20 | + + + + + + + + + | | 2022-03-31 | [facility] | NEGATIVE | (missing) | (missing) | | (unavailable | 16:46:08 [facility] | | | + + + + + + + + + | Result panel 21 | + + + + + + + + + | | 2022-03-31 | [facility] | NEGATIVE | (missing) | (missing) | | (unavailable | 16:46:08 [facility] | | | + + + + + + + + + | Result panel 22 | + + + + + + + + + | | 2022-03-31 | [facility] | YELLOW | (missing) | (missing) | | (unavailable | 16:46:08 [facility] | | | + + + + + + + + + | Result panel 23 | + + + + + +---------+ + + | | 2022-03-31 | [facility] | CLEAR | (missing) | (missing) | | (unavailable | 16:46:08 [facility] | | | + + + +---------+ + + + + | Result panel 24 | + + + + + + + + + | | 2022-03-31 | [facility] | >=1000 | (missing) | (missing) | | (unavailable | 16:46:08 [facility] | | | + + + + + + + + + | Result panel 25 | + + + + + + + + + | | 2022-03-31 | [facility] | NEGATIVE | (missing) | (missing) | | (unavailable | 16:46:08 [facility] | | | + + + + + + + + + | Result panel 26 | + + + + + + + + + | | 2022-03-31 | [facility] | NEGATIVE | (missing) | (missing) | | (unavailable | 16:46:08 [facility] | | | + + + + + + + + + | Result panel 27 | + + + + + + + + + | | 2022-03-31 | [facility] | <=1.005 | (missing) | (missing) | | (unavailable | 16:46:08 [facility] | | | + + + + + + + + + | Result panel 28 | + + + + + + + + + | | 2022-03-31 | [facility] | NEGATIVE | (missing) | (missing) | | (unavailable | 16:46:08 [facility] | | | + + + + + + + + + | Result panel 29 | + + + + + +-------+ + + | | 2022-03-31 | [facility] | 6.0 | (missing) | (missing) | | (unavailable | 16:46:08 [facility] | | | + + + +-------+ + + + + | Result panel 30 | + + + + + + + + + | | 2022-03-31 | [facility] | NEGATIVE | (missing) | (missing) | | (unavailable | 16:46:08 [facility] | | | + + + + + + + + + | Result panel 31 | + + + + + + + + + | | 2022-03-31 | [facility] | NORMAL | (missing) | (missing) | | (unavailable | 16:46:08 [facility] | | | + + + + + + + + + | Result panel 32 | + + + + + + + + + | | 2022-03-31 | [facility] | NEGATIVE | (missing) | (missing) | | (unavailable | 16:46:08 [facility] | | | + + + + + + + + + | Result panel 33 | + + + + + + + + + | | 2022-03-31 | [facility] | NEGATIVE | (missing) | (missing) | | (unavailable | 16:46:08 [facility] | | | + + + + + + + + + | Result panel 34 | + + + + + + + + + | | 2022-03-31 | [facility] | NEGATIVE | (missing) | (missing) | | (unavailable | 16:46:08 [facility] | | | + + + + + + + + + | Result panel 35 | + + + + + + + + + | | 2022-03-31 | [facility] | NEGATIVE | (missing) | (missing) | | (unavailable | 16:46:08 [facility] | | | + + + + + + + + + | Result panel 36 | + + + + + + + + + | | 2022-03-31 | [facility] | NEGATIVE | (missing) | (missing) | | (unavailable | 16:46:08 [facility] | | | + + + + + + + + + | Result panel 37 | + + + + + + + + + | | 2022-03-31 | [facility] | NEGATIVE | (missing) | (missing) | | (unavailable | 16:46:08 [facility] | | | + + + + + + + + + | Result panel 38 | + + + + + + + + + | | 2022-03-31 | [facility] | NEGATIVE | (missing) | (missing) | | (unavailable | 16:46:08 [facility] | | | + + + + + + + + + | Result panel 39 | + + + + + + + + + | | 2022-03-31 | [facility] | NEGATIVE | (missing) | (missing) | | (unavailable | 16:46:08 [facility] | | | + + + + + + + + + | Result panel 40 | + + + + + +-------+---------+ + | | 2022-03-31 | [facility] | 244 | mg/dL | (missing) | | (unavailable | 17:00:08 [facility] | | | + + + +-------+---------+ + + + | Result panel 41 | + + + + + +------+---------+ + | | 2022-03-31 | [facility] | 35 | mg/dL | (missing) | | (unavailable | 17:00:08 [facility] | | | + + + +------+---------+ + + + | Result panel 42 | + + + + + +--------+---------+ + | | 2022-03-31 | [facility] | 1.44 | mg/dL | (missing) | | (unavailable | :08 | [facility] | | | + + + +--------+---------+ + + + | Result panel 43 | + + + + + +------+ + + | | 2022-03-31 | [facility] | 55 | (missing) | (missing) | | (unavailable | :08 | [facility] | | | + + + +------+ + + + + | Result panel 44 | + + + + + +---------+ + + | | 2022-03-31 | [facility] | 24.30 | (missing) | (missing) | | (unavailable | 17:00:08 [facility] | | | + + + +---------+ + + + + | Result panel 45 | + + + + + +-------+ + + | | 2022-03-31 | [facility] | 137 | (missing) | (missing) | | (unavailable | 17:00:08 [facility] | | | + + + +-------+ + + + + | Result panel 46 | + + + + + +-------+ + + | | 2022-03-31 | [facility] | 4.4 | (missing) | (missing) | | (unavailable | 17:00:08 [facility] | | | + + + +-------+ + + + + | Result panel 47 | + + + + + +------+ + + | | 2022-03-31 | [facility] | 99 | (missing) | (missing) | | (unavailable | 17:00:08 [facility] | | | + + + +------+ + + + + | Result panel 48 | + + + + + +------+ + + | | 2022-03-31 | [facility] | 29 | (missing) | (missing) | | (unavailable | 17:00:08 [facility] | | | + + + +------+ + + + + | Result panel 49 | + + + + + +--------+ + + | | 2022-03-31 | [facility] | 13.4 | (missing) | (missing) | | (unavailable | 17:00:08 [facility] | | + + + +--------+ + + + + | Result panel 50 | + + + + + +-------+---------+ + | | 2022-03-31 | [facility] | 9.4 | mg/dL | (missing) | | (unavailable | 17::08 | [facility] | | | + + + +-------+---------+ + + + | Result panel 51 | + + + + + +-------+ + + | | 2022-03-31 | [facility] | 7.6 | (missing) | (missing) | | (unavailable | 17:00:08 [facility] | | | + + + +-------+ + + + + | Result panel 52 | + + + + + +-------+ + + | | 2022-03-31 | [facility] | 3.7 | (missing) | (missing) | | (unavailable | 17::08 | [facility] | | | + + + +-------+ + + + + | Result panel 53 | + + + + + +-------+ + + | | 2022-03-31 | [facility] | 3.9 | (missing) | (missing) | | (unavailable | 17:00:08 [facility] | | + + + +-------+ + + + + | Result panel 54 | + + + + + +--------+ + + | | 2022-03-31 | [facility] | 0.95 | (missing) | (missing) | | (unavailable | 17::08 | [facility] | | | + + + +--------+ + + + + | Result panel 55 | + + + + + +-------+ + + | | 2022-03-31 | [facility] | 0.3 | (missing) | (missing) | | (unavailable | 17:00:08 [facility] | | + + + +-------+ + + + + | Result panel 56 | + + + + + +------+ + + | | 2022-03-31 | [facility] | 19 | (missing) | (missing) | | (unavailable | 17:00:08 [facility] | | | + + + +------+ + + + + | Result panel 57 | + + + + + +------+ + + | | 2022-03-31 | [facility] | 34 | (missing) | (missing) | | (unavailable | 17:00:08 [facility] | | + + + +------+ + + + + | Result panel 58 | + + + + + +-------+ + + | | 2022-03-31 | [facility] | 101 | (missing) | (missing) | | (unavailable | 17:00:08 [facility] | | + + + +-------+ + + + + | Result panel 59 | + + + + + +-------+ + + | | 2022-03-31 | [facility] | 4.9 | (missing) | (missing) | | (unavailable | 17:00:08 [facility] | | + + + +-------+ + + + + | Result panel 60 | + + + + + +------+ + + | | 2022-03-31 | [facility] | <3 | (missing) | (missing) | | (unavailable | 17:00:08 [facility] | | + + + +------+ + + + + | Result panel 61 | + + + + + +-------+ + + | | 2022-09-12 | [facility] | 5.4 | (missing) | (missing) | | (unavailable | 17:44:07 [facility] | | | + + + +-------+ + + + + | Result panel 62 | + + + + + + + + + | | 2022-09-12 | [facility] | NEGATIVE | (missing) | (missing) | | (unavailable | 17:44:07 [facility] | | + + + + + + + + + | Result panel 63 | + + + + + +--------+ + + | | 2022-09-12 | [facility] | 7.45 | (missing) | (missing) | | (unavailable | 18:08:07 [facility] | | + + + +--------+ + + + + | Result panel 64 | + + + + + +--------+ + + | | 2022-09-12 | [facility] | 38.4 | (missing) | (missing) | | (unavailable | 18:08:07 [facility] | | + + + +--------+ + + + + | Result panel 65 | + + + + + +------+ + + | | 2022-09-12 | [facility] | 72 | (missing) | (missing) | | (unavailable | 18:08:07 [facility] | | + + + +------+ + + + + | Result panel 66 | + + + + + +--------+ + + | | 2022-09-12 | [facility] | 26.6 | (missing) | (missing) | | (unavailable | 18:08:07 [facility] | | + + + +--------+ + + + + | Result panel 67 | + + + + + +-------+ + + | | 2022-09-12 | [facility] | 2.5 | (missing) | (missing) | | (unavailable | 18:08:07 [facility] | | + + + +-------+ + + + + | Result panel 68 | + + + + + +--------+ + + | | 2022-09-12 | [facility] | 97.0 | (missing) | (missing) | | (unavailable | 18:08:07 [facility] | | + + + +--------+ + + + + | Result panel 69 | + + + + + +------+ + + | | 2022-09-12 | [facility] | 2L | (missing) | (missing) | | (unavailable | 18:08:07 [facility] | | + + + +------+ + + + + | Result panel 70 | + + + + + +--------+ + + | | 2022-09-12 | [facility] | 27.8 | (missing) | (missing) | | (unavailable | 18:08:07 [facility] | | + + + +--------+ + + + + | Result panel 71 | + + + + + +--------+ + + | | 2022-09-12 | [facility] | 23.0 | (missing) | (missing) | | (unavailable | 18:37:07 [facility] | | + + + +--------+ + + + + | Result panel 72 | + + + + + +-------+ + + | | 2022-09-13 | [facility] | 6.1 | (missing) | (missing) | | (unavailable | 05:15:07 [facility] | | + + + +-------+ + + + + | Result panel 73 | + + + + + +--------+ + + | | 2022-09-13 | [facility] | 67.2 | (missing) | (missing) | | (unavailable | 05:15:07 [facility] | | + + + +--------+ + + + + | Result panel 74 | + + + + + +--------+ + + | | 2022-09-13 | [facility] | 17.6 | (missing) | (missing) | | (unavailable | 05:15:07 [facility] | | + + + +--------+ + + + + | Result panel 75 | + + + + + +-------+ + + | | 2022-09-13 | [facility] | 8.0 | (missing) | (missing) | | (unavailable | 05:15:07 [facility] | | + + + +-------+ + + + + | Result panel 76 | + + + + + +-------+ + + | | 2022-09-13 | [facility] | 5.1 | (missing) | (missing) | | (unavailable | 05:15:07 [facility] | | | + + + +-------+ + + + + | Result panel 77 | + + + + + +-------+ + + | | 2022-09-13 | [facility] | 2.1 | (missing) | (missing) | | (unavailable | 05:15:07 [facility] | | + + + +-------+ + + + + | Result panel 78 | + + + + + +-------+---------+ + | | 2022-09-13 | [facility] | 326 | mg/dL | (missing) | | (unavailable | 05:15:07 [facility] | | + + + +-------+---------+ + + + | Result panel 79 | + + + + + +------+---------+ + | | 2022-09-13 | [facility] | 39 | mg/dL | (missing) | | (unavailable | 05:15:07 [facility] | | + + + +------+---------+ + + + | Result panel 80 | + + + + + +--------+---------+ + | | 2022-09-13 | [facility] | 1.40 | mg/dL | (missing) | | (unavailable | 05:15:07 [facility] | | + + + +--------+---------+ + + + | Result panel 81 | + + + + + +------+ + + | | 2022-09-13 | [facility] | 56 | (missing) | (missing) | | (unavailable | 05:15:07 [facility] | | | + + + +------+ + + + + | Result panel 82 | + + + + + +--------+ + + | | 2022-09-13 | [facility] | 4.76 | (missing) | (missing) | | (unavailable | 05:15:07 [facility] | | + + + +--------+ + + + + | Result panel 83 | + + + + + +---------+ + + | | 2022-09-13 | [facility] | 27.85 | (missing) | (missing) | | (unavailable | 05:15:07 [facility] | | | + + + +---------+ + + + + | Result panel 84 | + + + + + +-------+ + + | | 2022-09-13 | [facility] | 135 | (missing) | (missing) | | (unavailable | 05:15:07 [facility] | | + + + +-------+ + + + + | Result panel 85 | + + + + + +-------+ + + | | 2022-09-13 | [facility] | 4.0 | (missing) | (missing) | | (unavailable | 05:15:07 [facility] | | | + + + +-------+ + + + + | Result panel 86 | + + + + + +------+ + + | | 2022-09-13 | [facility] | 98 | (missing) | (missing) | | (unavailable | 05:15:07 [facility] | | | + + + +------+ + + + + | Result panel 87 | + + + + + +------+ + + | | 2022-09-13 | [facility] | 31 | (missing) | (missing) | | (unavailable | 05:15:07 [facility] | | | + + + +------+ + + + + | Result panel 88 | + + + + + +--------+ + + | | 2022-09-13 | [facility] | 10.0 | (missing) | (missing) | | (unavailable | 05:15:07 [facility] | | + + + +--------+ + + + + | Result panel 89 | + + + + + +-------+---------+ + | | 2022-09-13 | [facility] | 8.9 | mg/dL | (missing) | | (unavailable | 05:15:07 [facility] | | | + + + +-------+---------+ + + + | Result panel 90 | + + + + + +-------+ + + | | 2022-09-13 | [facility] | 7.4 | (missing) | (missing) | | (unavailable | 05:15:07 [facility] | | | + + + +-------+ + + + + | Result panel 91 | + + + + + +-------+ + + | | 2022-09-13 | [facility] | 3.5 | (missing) | (missing) | | (unavailable | 05:15:07 [facility] | | | + + + +-------+ + + + + | Result panel 92 | + + + + + +-------+ + + | | 2022-09-13 | [facility] | 3.9 | (missing) | (missing) | | (unavailable | 05:15:07 [facility] | | | + + + +-------+ + + + + | Result panel 93 | + + + + + +--------+ + + | | 2022-09-13 | [facility] | 13.0 | (missing) | (missing) | | (unavailable | 05:15:07 [facility] | | | + + + +--------+ + + + + | Result panel 94 | + + + + + +--------+ + + | | 2022-09-13 | [facility] | 0.90 | (missing) | (missing) | | (unavailable | 05:15:07 [facility] | | | + + + +--------+ + + + + | Result panel 95 | + + + + + +-------+ + + | | 2022-09-13 | [facility] | 0.4 | (missing) | (missing) | | (unavailable | 05:15:07 [facility] | | | + + + +-------+ + + + + | Result panel 96 | + + + + + +------+ + + | | 2022-09-13 | [facility] | 17 | (missing) | (missing) | | (unavailable | 05:15:07 [facility] | | | + + + +------+ + + + + | Result panel 97 | + + + + + +------+ + + | | 2022-09-13 | [facility] | 30 | (missing) | (missing) | | (unavailable | 05:15:07 [facility] | | | + + + +------+ + + + + | Result panel 98 | + + + + + +-------+ + + | | 2022-09-13 | [facility] | 102 | (missing) | (missing) | | (unavailable | 05:15:07 [facility] | | | + + + +-------+ + + + + | Result panel 99 | + + + + + +-------+ + + | | 2022-09-13 | [facility] | 9.7 | (missing) | (missing) | | (unavailable | 05:15:07 [facility] | | | + + + +-------+ + + + + | Result panel 100 | + + + + + +--------+ + + | | 2022-09-13 | [facility] | 38.9 | (missing) | (missing) | | (unavailable | 05:15:07 [facility] | | | + + + +--------+ + + + + | Result panel 101 | + + + + + +--------+ + + | | 2022-09-13 | [facility] | 81.8 | (missing) | (missing) | | (unavailable | 05:15:07 [facility] | | | + + + +--------+ + + + + | Result panel 102 | + + + + + +--------+ + + | | 2022-09-13 | [facility] | 27.2 | (missing) | (missing) | | (unavailable | 05:15:07 [facility] | | | + + + +--------+ + + + + | Result panel 103 | + + + + + +--------+ + + | | 2022-09-13 | [facility] | 33.3 | (missing) | (missing) | | (unavailable | 05:15:07 [facility] | | | + + + +--------+ + + + + | Result panel 104 | + + + + + +--------+ + + | | 2022-09-13 | [facility] | 15.2 | (missing) | (missing) | | (unavailable | 05:15:07 [facility] | | | + + + +--------+ + + + + | Result panel 105 | + + + + + +-------+ + + | | 2022-09-13 | [facility] | 173 | (missing) | (missing) | | (unavailable | 05:15:07 [facility] | | | + + + +-------+ + + + + | Result panel 106 | + + + + + +-------+ + + | | 2022-09-13 | [facility] | 287 | (missing) | (missing) | | (unavailable | 08:15:07 [facility] | | | + + + +-------+ + + Social History No information. Vital Signs + + + +---------+ | date | measurement | value | units | + + + +---------+ | 2021-12-01 00:00 | BMI | 39.1 | kg/m2 | + + + +---------+ | 2021-12-01 00:00 | BP_diastolic | 77 | mmHg | + + + +---------+ | 2021-12-01 00:00 | BP_systolic | 104 | mmHg | + + + +---------+ | 2021-12-01 00:00 | heart_rate | 67 | /min | + + + +---------+ | 2021-12-01 00:00 | height_metric | 175.26 | cm | + + + +---------+ | 2021-12-01 00:00 | height_standard | 69 | in | + + + +---------+ | 2021-12-01 00:00 | o2_saturation | 92 | % | + + + +---------+ | 2021-12-01 00:00 | respiration_rate | 16 | /min | + + + +---------+ | 2021-12-01 00:00 | temperature_metric | 37 | C | | | | | | + + + +---------+ | 2021-12-01 00:00 | | 98.6 | F | | | temperature_standar | | | | | d | | | + + + +---------+ | 2021-12-01 00:00 | weight_metric | 120 | kg | + + + +---------+ | 2021-12-01 00:00 | weight_standard | 264.55 | lb | + + + +---------+ | 2021-12-01 00:00 | weight_standard | 264.56 | lb | + + + +---------+ | 2022-03-31 00:00 | BMI | 39.1 | kg/m2 | + + + +---------+ | 2022-03-31 00:00 | BP_diastolic | 68 | mmHg | + + + +---------+ | 2022-03-31 00:00 | BP_systolic | 95 | mmHg | + + + +---------+ | 2022-03-31 00:00 | heart_rate | 79 | /min | + + + +---------+ | 2022-03-31 00:00 | height_metric | 175.26 | cm | + + + +---------+ | 2022-03-31 00:00 | height_standard | 69 | in | + + + +---------+ | 2022-03-31 00:00 | o2_saturation | 91 | % | + + + +---------+ | 2022-03-31 00:00 | respiration_rate | 8 | /min | + + + +---------+ | 2022-03-31 00:00 | temperature_metric | 37 | C | | | | | | + + + +---------+ | 2022-03-31 00:00 | | 98.6 | F | | | temperature_standar | | | | | d | | | + + + +---------+ | 2022-03-31 00:00 | weight_metric | 120 | kg | + + + +---------+ | 2022-03-31 00:00 | weight_standard | 264.55 | lb | + + + +---------+ | 2022-03-31 00:00 | weight_standard | 264.56 | lb | + + + +---------+ | 2022-09-12 00:00 | BMI | 26.1 | kg/m2 | + + + +---------+ | 2022-09-12 00:00 | height_metric | 175.26 | cm | + + + +---------+ | 2022-09-12 00:00 | height_standard | 69 | in | + + + +---------+ | 2022-09-12 00:00 | weight_metric | 80.2 | kg | + + + +---------+ | 2022-09-12 00:00 | weight_standard | 176.81 | lb | + + + +---------+ | 2022-09-13 00:00 | BP_diastolic | 74 | mmHg | + + + +---------+ | 2022-09-13 00:00 | BP_systolic | 108 | mmHg | + + + +---------+ | 2022-09-13 00:00 | heart_rate | 80 | /min | + + + +---------+ | 2022-09-13 00:00 | o2_saturation | 95 | % | + + + +---------+ | 2022-09-13 00:00 | respiration_rate | 14 | /min | + + + +---------+ | 2022-09-13 00:00 | temperature_metric | 36.56 | C | | | | | | + + + +---------+ | 2022-09-13 00:00 | | 97.8 | F | | | temperature_standar | | | | | d | | | + + + +---------+"
--- OUTSIDE RECORDS SUMMARY | ~2022-10-09 | XMS | Continuity of Care Document ---
Demographics + + + | Address | [address] | | | [place] [address] | + + + | Preferred Language | Unknown | + + + | Marital Status | | + + + | Orthodoxy Affiliation | Unknown | + + + | Race | White | + + + | Ethnic Group | Not or | + + + Author + + + | Author | [facility] | + + + | Organization | [facility] | + + + | Address | [address] | | | [place] [address] | + + + | Phone | | + + + Care Team Providers + + + + | Care Kiln Placer Name | Role | Phone | + [...] + | 2021-12-01 00:00 | Tdap | [facility] | + + + + | 2021-12-01 00:00 | Tdap | [facility] | + + + + | 2021-12-01 00:00 | Tdap | [facility] | + + + + Medications + + + + | date | description | facility | + + + + | 2021-12-01 00:00 | DIPHENHYDRAMINE HCL | [facility] | + + + + | 2022-03-31 00:00 | DIPHENHYDRAMINE HCL | [facility] | + + + + | 2022-09-13 00:00 | DIPHENHYDRAMINE HCL | [facility] | + + + + | 2021-12-01 00:00 | DIVALPROEX SODIUM | [facility] | + + + + | 2022-03-31 00:00 | DIVALPROEX SODIUM | [facility] | + + + + | 2022-09-13 00:00 | DIVALPROEX SODIUM | [facility] | + + + + | 2021-12-01 00:00 | EMPAGLIFLOZIN | [facility] | + + + + | 2022-03-31 00:00 | EMPAGLIFLOZIN | [facility] | + + + + | 2022-09-13 00:00 | EMPAGLIFLOZIN | [facility] | + + + + | 2021-12-01 00:00 | DULAGLUTIDE | [facility] | + + + + | 2022-03-31 00:00 | DULAGLUTIDE | [facility] | + + + + | 2022-09-13 00:00 | DULAGLUTIDE | [facility] | + + + + | 2020-07-16 00:00 | DOXYCYCLINE HYCLATE | [facility] | + + + + | 2020-07-16 00:00 | DOXYCYCLINE HYCLATE | [facility] | + + + + | 2020-07-16 00:00 | DOXYCYCLINE HYCLATE | [facility] | + + + + | 2021-12-01 00:00 | Insulin Aspart | [facility] | + + + + | 2022-03-31 00:00 | Insulin Aspart | [facility] | + + + + | 2022-09-13 00:00 | Insulin Aspart | [facility] | + + + + | 2021-12-01 00:00 | INSULIN ASPART | [facility] | + + + + | 2022-03-31 00:00 | INSULIN ASPART | [facility] | + + + + | 2022-09-13 00:00 | INSULIN ASPART | [facility] | + + + + | 2021-12-01 00:00 | SACUBITRIL/VALSARTAN | [facility] | + + + + | 2022-03-31 00:00 | SACUBITRIL/VALSARTAN | [facility] | + + + + | 2022-09-13 00:00 | SACUBITRIL/VALSARTAN | [facility] | + + + + | 2021-12-01 00:00 | INSULIN DEGLUDEC | [facility] | + + + + | 2022-03-31 00:00 | INSULIN DEGLUDEC | [facility] | + + + + | 2022-09-13 00:00 | INSULIN DEGLUDEC | [facility] | + + + + | 2021-12-01 00:00 | POTASSIUM CHLORIDE | [facility] | + + + + | 2022-03-31 00:00 | POTASSIUM CHLORIDE | [facility] | + + + + | 2022-09-13 00:00 | POTASSIUM CHLORIDE | [facility] | + + + + | 2021-12-01 00:00 | BUMETANIDE | [facility] | + + + + | 2022-03-31 00:00 | BUMETANIDE | [facility] | + + + + | 2022-09-13 00:00 | BUMETANIDE | [facility] | + + + + | 2021-12-01 00:00 | METOLAZONE | [facility] | + + + + | 2022-03-31 00:00 | METOLAZONE | [facility] | + + + + | 2022-09-13 00:00 | METOLAZONE | [facility] | + + + + | 2021-12-01 00:00 | NITROGLYCERIN | [facility] | + + + + | 2022-03-31 00:00 | NITROGLYCERIN | [facility] | + + + + | 2022-09-13 00:00 | NITROGLYCERIN | [facility] | + + + + | 2017-01-18 00:00 | ONDANSETRON HCL | [facility] | + + + + | 2017-01-18 00:00 | ONDANSETRON HCL | [facility] | + + + + | 2017-01-18 00:00 | ONDANSETRON HCL | [facility] | + + + + | 2021-12-01 00:00 | MAGNESIUM OXIDE | [facility] | + + + + | 2022-03-31 00:00 | MAGNESIUM OXIDE | [facility] | + + + + | 2022-09-13 00:00 | MAGNESIUM OXIDE | [facility] | + + + + | 2021-12-01 00:00 | GLIMEPIRIDE | [facility] | + + + + | 2022-03-31 00:00 | GLIMEPIRIDE | [facility] | + + + + | 2022-09-13 00:00 | GLIMEPIRIDE | [facility] | + + + + | 2021-12-01 00:00 | FUROSEMIDE | [facility] | + + + + | 2022-03-31 00:00 | FUROSEMIDE | [facility] | + + + + | 2022-09-13 00:00 | FUROSEMIDE | [facility] | + + + + | 2021-12-01 00:00 | | [facility] | | | ASPIRIN/ACETAMINOPHEN/CAFFE | | | | INE | | + + + + | 2022-03-31 00:00 | | [facility] | | | ASPIRIN/ACETAMINOPHEN/CAFFE | | | | INE | | + + + + | 2022-09-13 00:00 | | [facility] | | | ASPIRIN/ACETAMINOPHEN/CAFFE | | | | INE | | + + + + | 2017-04-24 00:00 | LEVOFLOXACIN | [facility] | + + + + | 2017-04-24 00:00 | LEVOFLOXACIN | [facility] | + + + + | 2017-04-24 00:00 | LEVOFLOXACIN | [facility] | + + + + | 2021-12-01 00:00 | CARVEDILOL | [facility] | + + + + | 2022-03-31 00:00 | CARVEDILOL | [facility] | + + + + | 2022-09-13 00:00 | CARVEDILOL | [facility] | + + + + | 2021-12-01 00:00 | CLOPIDOGREL BISULFATE | [facility] | + + + + | 2022-03-31 00:00 | CLOPIDOGREL BISULFATE | [facility] | + + + + | 2022-09-13 00:00 | CLOPIDOGREL BISULFATE | [facility] | + + + + | 2021-12-01 00:00 | | [facility] | | | BUTALB/ACETAMINOPHEN/CAFFEI | | | | NE | | + + + + | 2022-03-31 00:00 | | [facility] | | | BUTALB/ACETAMINOPHEN/CAFFEI | | | | NE | | + + + + | 2022-09-13 00:00 | | [facility] | | | BUTALB/ACETAMINOPHEN/CAFFEI | | | | NE | | + + + + | 2022-09-13 00:00 | Naloxone HCl | [facility] | + + + + | 2021-12-01 00:00 | CLINDAMYCIN HCL | [facility] | + + + + | 2022-03-31 00:00 | CLINDAMYCIN HCL | [facility] | + + + + | 2022-09-13 00:00 | CLINDAMYCIN HCL | [facility] | + + + + | 2021-12-01 00:00 | FOLIC ACID | [facility] | + + + + | 2022-03-31 00:00 | FOLIC ACID | [facility] | + + + + | 2022-09-13 00:00 | FOLIC ACID | [facility] | + + + + | 2021-12-01 00:00 | GABAPENTIN | [facility] | + + + + | 2022-03-31 00:00 | GABAPENTIN | [facility] | + + + + | 2022-09-13 00:00 | GABAPENTIN | [facility] | + + + + | 2021-12-01 00:00 | GLYBURIDE | [facility] | + + + + | 2022-03-31 00:00 | GLYBURIDE | [facility] | + + + + | 2022-09-13 00:00 | GLYBURIDE | [facility] | + + + + | 2021-12-01 00:00 | OLANZAPINE | [facility] | + + + + | 2022-03-31 00:00 | OLANZAPINE | [facility] | + + + + | 2022-09-13 00:00 | OLANZAPINE | [facility] | + + + + | 2021-12-01 00:00 | FENOFIBRATE,MICRONIZED | [facility] | + + + + | 2022-03-31 00:00 | FENOFIBRATE,MICRONIZED | [facility] | + + + + | 2022-09-13 00:00 | FENOFIBRATE,MICRONIZED | [facility] | + + + + | 2021-12-01 00:00 | QUETIAPINE FUMARATE | [facility] | + + + + | 2022-03-31 00:00 | QUETIAPINE FUMARATE | [facility] | + + + + | 2022-09-13 00:00 | QUETIAPINE FUMARATE | [facility] | + + + + | 2017-04-24 00:00 | METHYLPREDNISOLONE | [facility] | + + + + | 2017-04-24 00:00 | METHYLPREDNISOLONE | [facility] | + + + + | 2017-04-24 00:00 | METHYLPREDNISOLONE | [facility] | + + + + | 2021-12-01 00:00 | METHYLPREDNISOLONE | [facility] | + + + + | 2022-03-31 00:00 | METHYLPREDNISOLONE | [facility] | + + + + | 2022-09-13 00:00 | METHYLPREDNISOLONE | [facility] | + + + + | 2019-04-16 00:00 | AMOXICILLIN/POTASSIUM CLAV | [facility] | | | | | + + + + | 2019-04-16 00:00 | AMOXICILLIN/POTASSIUM CLAV | [facility] | | | | | + + + + | 2019-04-16 00:00 | AMOXICILLIN/POTASSIUM CLAV | [facility] | | | | | + + + + | 2021-12-01 00:00 | ASPIRIN | [facility] | + + + + | 2022-03-31 00:00 | ASPIRIN | [facility] | + + + + | 2022-09-13 00:00 | ASPIRIN | [facility] | + + + + | 2021-07-25 00:00 | CYCLOBENZAPRINE HCL | [facility] | + + + + | 2021-07-25 00:00 | CYCLOBENZAPRINE HCL | [facility] | + + + + | 2021-07-25 00:00 | CYCLOBENZAPRINE HCL | [facility] | + + + + | 2021-12-01 00:00 | INSULIN | [facility] | | | ARNOLDHUM.REC.ANLOG | | + + + + | 2022-03-31 00:00 | INSULIN | [facility] | | | ARNOLDHUM.REC.ANLOG | | + + + + | 2022-09-13 00:00 | INSULIN | [facility] | | | GLAGEORGINAHUM.REC.ANLOG | | + + + + | 2021-12-01 00:00 | | [facility] | | | SULFAMETHOXAZOLE/TRIMETHOPR | | | | IM DS | | + + + + | 2021-12-01 00:00 | | [facility] | | | SULFAMETHOXAZOLE/TRIMETHOPR | | | | IM DS | | + + + + | 2021-12-01 00:00 | | [facility] | | | SULFAMETHOXAZOLE/TRIMETHOPR | | | | IM DS | | + + + + | 2021-12-01 00:00 | PROPRANOLOL HCL | [facility] | + + + + | 2022-03-31 00:00 | PROPRANOLOL HCL | [facility] | + + + + | 2022-09-13 00:00 | PROPRANOLOL HCL | [facility] | + + + + | 2021-12-01 00:00 | AMITRIPTYLINE HCL | [facility] | + + + + | 2022-03-31 00:00 | AMITRIPTYLINE HCL | [facility] | + + + + | 2022-09-13 00:00 | AMITRIPTYLINE HCL | [facility] | + + + + | 2021-12-01 00:00 | AMITRIPTYLINE HCL | [facility] | + + + + | 2022-03-31 00:00 | AMITRIPTYLINE HCL | [facility] | + + + + | 2022-09-13 00:00 | AMITRIPTYLINE HCL | [facility] | + + + + | 2021-12-01 00:00 | ALBUTEROL SULFATE | [facility] | + + + + | 2022-03-31 00:00 | ALBUTEROL SULFATE | [facility] | + + + + | 2022-09-13 00:00 | ALBUTEROL SULFATE | [facility] | + + + + | 2021-12-01 00:00 | ROSUVASTATIN CALCIUM | [facility] | + + + + | 2022-03-31 00:00 | ROSUVASTATIN CALCIUM | [facility] | + + + + | 2022-09-13 00:00 | ROSUVASTATIN CALCIUM | [facility] | + + + + | 2021-12-01 00:00 | metFORMIN HCL | [facility] | + + + + | 2022-03-31 00:00 | metFORMIN HCL | [facility] | + + + + | 2022-09-13 00:00 | metFORMIN HCL | [facility] | + + + + | 2021-12-01 00:00 | METFORMIN HCL | [facility] | + + + + | 2022-03-31 00:00 | METFORMIN HCL | [facility] | + + + + | 2022-09-13 00:00 | METFORMIN HCL | [facility] | + + + + | 2021-12-01 00:00 | MORPHINE SULFATE | [facility] | + + + + | 2022-03-31 00:00 | MORPHINE SULFATE | [facility] | + + + + | 2022-09-13 00:00 | MORPHINE SULFATE | [facility] | + + + + | 2021-12-01 00:00 | MORPHINE SULFATE | [facility] | + + + + | 2022-03-31 00:00 | MORPHINE SULFATE | [facility] | + + + + | 2022-09-13 00:00 | MORPHINE SULFATE | [facility] | + + + + Problems + + + + | date | description | facility | + + + + | 2016-03-26 00:00 | Uncontrolled type 2 | [facility] | | | diabetes mellitus | | + + + + | 2016-03-26 00:00 | Uncontrolled type 2 | [facility] | | | diabetes mellitus | | + + + + | 2016-03-26 00:00 | Uncontrolled type 2 | [facility] | | | diabetes mellitus | | + + + + | 2016-03-26 00:00 | Chest pain | [facility] | + + + + | 2016-03-26 00:00 | Chest pain | [facility] | + + + + | 2016-03-26 00:00 | Chest pain | [facility] | + + + + | 2016-03-26 00:00 | Abdominal pain | [facility] | + + + + | 2016-03-26 00:00 | Abdominal pain | [facility] | + + + + | 2016-03-26 00:00 | Abdominal pain | [facility] | + + + + | 2016-03-26 00:00 | Vomiting | [facility] | + + + + | 2016-03-26 00:00 | Vomiting | [facility] | + + + + | 2016-03-26 00:00 | Vomiting | [facility] | + + + + | 2017-01-17 00:00 | Gastroenteritis | [facility] | + + + + | 2017-01-17 00:00 | Gastroenteritis | [facility] | + + + + | 2017-01-17 00:00 | Gastroenteritis | [facility] | + + + + | 2017-01-17 00:00 | Aspiration into airway | [facility] | + + + + | 2017-01-17 00:00 | Aspiration into airway | [facility] | + + + + | 2017-01-17 00:00 | Aspiration into airway | [facility] | + + + + | 2017-04-24 00:00 | Chronic bronchitis | [facility] | + + + + | 2017-04-24 00:00 | Chronic bronchitis | [facility] | + + + + | 2017-04-24 00:00 | Chronic bronchitis | [facility] | + + + + | 2017-04-24 00:00 | Nonspecific chest pain | [facility] | + + + + | 2017-04-24 00:00 | Nonspecific chest pain | [facility] | + + + + | 2017-04-24 00:00 | Nonspecific chest pain | [facility] | + + + + | 2018-04-30 00:00 | Acute bronchitis | [facility] | + + + + | 2018-04-30 00:00 | Acute bronchitis | [facility] | + + + + | 2018-04-30 00:00 | Acute bronchitis | [facility] | + + + + | 2018-08-17 00:00 | Leukocytosis | [facility] | + + + + | 2018-08-17 00:00 | Leukocytosis | [facility] | + + + + | 2018-08-17 00:00 | Leukocytosis | [facility] | + + + + | 2018-08-17 00:00 | Hypoglycemia | [facility] | + + + + | 2018-08-17 00:00 | Hypoglycemia | [facility] | + + + + | 2018-08-17 00:00 | Hypoglycemia | [facility] | + + + + | 2019-03-19 00:00 | Acute gastroenteritis | [facility] | + + + + | 2019-03-19 00:00 | Acute gastroenteritis | [facility] | + + + + | 2019-03-19 00:00 | Acute gastroenteritis | [facility] | + + + + | 2019-04-12 00:00 | Acute metabolic | [facility] | | | encephalopathy | | + + + + | 2019-04-12 00:00 | Acute metabolic | [facility] | | | encephalopathy | | + + + + | 2019-04-12 00:00 | Acute metabolic | [facility] | | | encephalopathy | | + + + + | 2019-04-13 00:00 | Metabolic encephalopathy | [facility] | + + + + | 2019-04-13 00:00 | Metabolic encephalopathy | [facility] | + + + + | 2019-04-13 00:00 | Metabolic encephalopathy | [facility] | + + + + | 2019-04-13 00:00 | Hypotension | [facility] | + + + + | 2019-04-13 00:00 | Hypotension | [facility] | + + + + | 2019-04-13 00:00 | Hypotension | [facility] | + + + + | 2020-07-16 00:00 | Cellulitis of second toe | [facility] | | | of right foot | | + + + + | 2020-07-16 00:00 | Cellulitis of second toe | [facility] | | | of right foot | | + + + + | 2020-07-16 00:00 | Cellulitis of second toe | [facility] | | | of right foot | | + + + + | 2020-12-04 00:00 | Infection due to severe | [facility] | | | acute respiratory syndrome | | | | coronavirus 2 (SARS-CoV-2) | | + + + + | 2020-12-04 00:00 | Infection due to severe | [facility] | | | acute respiratory syndrome | | | | coronavirus 2 (SARS-CoV-2) | | + + + + | 2020-12-04 00:00 | Infection due to severe | [facility] | | | acute respiratory syndrome | | | | coronavirus 2 (SARS-CoV-2) | | + + + + | 2021-03-07 00:00 | Abdominal distension | [facility] | + + + + | 2021-03-07 00:00 | Abdominal distension | [facility] | + + + + | 2021-03-07 00:00 | Abdominal distension | [facility] | + + + + | 2021-05-25 00:00 | Constipation | [facility] | + + + + | 2021-05-25 00:00 | Constipation | [facility] | + + + + | 2021-05-25 00:00 | Constipation | [facility] | + + + + | 2021-07-24 [...] + + | 2021-07-24 22:08 | Other jail (current) | [facility] | | | drug therapy [facility] | + + + + | 2021-07-24 22:08 | Personal history of | [facility] | | | nicotine dependence | [employer] | + + + + | 2021-07-25 00:00 | Low blood glucose | [facility] | | | measurement | | + + + + | 2021-07-25 00:00 | Low blood glucose | [facility] | | | measurement | | + + + + | 2021-07-25 00:00 | Low blood glucose | [facility] | | | measurement | | + + + + | 2021-07-25 00:00 | Chest wall pain | [facility] | + + + + | 2021-07-25 00:00 | Chest wall pain | [facility] | + + + + | 2021-07-25 00:00 | Chest wall pain | [facility] | + + + + | 2021-12-01 00:00 | Bite by animal | [facility] | + + + + | 2021-12-01 00:00 | Bite by animal | [facility] | + + + + | 2021-12-01 00:00 | Bite by animal | [facility] | + + + + | 2022-03-31 00:00 | Weakness | [facility] | + + + + | 2022-03-31 00:00 | Weakness | [facility] | + + + + | 2022-03-31 16:26 | HYPERLIPIDEMIA, | [facility] | | | UNSPECIFIED | | + + + + | 2022-03-31 16:26 | OLD MYOCARDIAL INFARCTION | [facility] | + + + + | 2022-03-31 16:26 | WEAKNESS | [facility] | + + + + | 2022-03-31 16:26 | FINISHER FINE DIAMOND DIES (CURRENT) USE OF | [facility] | | | INSULIN | | + + + + | 2022-03-31 16:26 | CARE HOME (CURRENT) USE OF | [facility] | | | ASPIRIN | | + + + + | 2022-03-31 16:26 | FINISHER FINE DIAMOND DIES (CURRENT) USE OF | [facility] | | | ORAL HYPOGLYCEMIC DRUGS | | + + + + | 2022-03-31 16:26 | CARE HOME (CURRENT) USE OF | [facility] | | | OPIATE ANALGESIC | | + + + + | 2022-03-31 16:26 | OTHER CARE HOME (CURRENT) | [facility] | | | DRUG [...] 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
[~2022-10-09 09:39] MED LIST changes: +KLOXXADO8 MG NAS
--- OUTSIDE RECORDS SUMMARY | 2022-10-09 09:42 | XMS ---
PreManage Notification: MIGUELANGEL TRACY Security Manager Material Events No recent Security Events currently on file CRITERIA MET - [facility] - [facility] - 2 Visits in 30 Days CARE PROVIDERS Katie Gomez Trust Manager Assistant/Legal Arbitrator 05/17/2022-Current PHONE: [phone] AKIRA JACKSON Physician Parachute Inspector 03/11/2021-Current PHONE: [phone] -Kathie- Dentist: Horse [employer] Manager [facility] PHONE: [phone] Robin has no Care Guidelines for this patient. Care History Medical/Surgical 05/03/2018 [facility] - [facility]W CONTACTED PATIENT- PATIENT [...] known visits. ED/UCC VISIT TRACKING (12 MO.) 10/09/2022 09:40 [facility] TYPE: Emergency COMPLAINT: - ABD PAIN 09/12/2022 17:38 [facility] TYPE: Emergency COMPLAINT: - ALTERED LOC 03/31/2022 16:26 [facility] TYPE: Emergency COMPLAINT: - WEAKNESS DIAGNOSES: - Hyperlipidemia, unspecified - terminal operator (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 - halfway (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 - halfway (current) use of opiate analgesic - halfway (current) use of oral hypoglycemic drugs - Old myocardial infarction - Other senior care (current) drug therapy - Personal history of nicotine dependence - Weakness 12/01/2021 21:56 [facility] TYPE: Emergency COMPLAINT: - WAS BIT BY A POSSUM DIAGNOSES: - Bitten by other mammals, initial encounter - Hyperlipidemia, unspecified - 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 operator (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 - terminal operator (current) use of oral hypoglycemic drugs - Old myocardial infarction - Open bite of left hand, initial encounter - Other terminal operator (current) drug therapy - Personal history of nicotine dependence INPATIENT VISIT TRACKING (12 MO.) 09/12/2022 20:15 [facility] TYPE: Observation COMPLAINT: - AMS/ ENCEPHALOPATHY DIAGNOSES: - Altered mental status, unspecified - Atherosclerotic heart disease of [place] coronary artery without angina pectoris - Chronic pain syndrome - Hypertensive heart disease with heart failure - Hypotension, unspecified - terminal operator (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 - halfway (current) use of oral hypoglycemic drugs - Other terminal operator (current) drug therapy - Presence of automatic (implantable) cardiac defibrillator - Type 2 diabetes mellitus without complications - Unspecified systolic (congestive) heart failure [email or web address]
[2022-10-09 09:51] LABS: BASOPHILS 0.7 % (0-2); EOSINOPHILS 0.2 % (0-6); HEMATOCRIT 41.7 % (35.0-50.0); HEMOGLOBIN 13.5 g/dL (12.0-18.0); LYMPHOCYTES 7.2 % (24-44); MCH 26.4 (27-36); MCHC 32.5 g/dl (30-36); MCV 81.3 fl (81-99); MONOCYTES 1.8 % (0-12); NEUTROPHILS 90.1 % (39-80); PLATELET COUNT 201 K/uL (140-440); RBC 5.12 M/ul (4.3-5.7); RDW 15.4 (10.5-15.0)
[2022-10-09 10:10] LABS: ALBUMIN 3.4 g/dL (3.4-5.0); ALBUMIN/GLOBULIN RATIO 0.81 (1.1-2.4); ANION GAP 28.2 (7-21); BILIRUBIN, TOTAL 0.6 ng/dL (0.2-1.0); BUN/CREATININE RATIO 22.8 (6.0-28.6); CALCIUM 10.1 mg/dL (8.5-10.1); CREATININE, SERUM 1.14 mg/dL (0.70-1.30); MAGNESIUM 1.9 mg/dL (1.8-2.4); POTASSIUM 4.2 mmol/L (3.5-5.1); PROTEIN, TOTAL 7.6 g/dL (6.4-8.2)
[2022-10-09] MEDS ORDERED: ONDANSETRON ODT8 MG PO (12:11)
[2022-10-09] MEDS ORDERED: PROTONIX40 MG PO (12:11)
[2022-10-09 12:17] VITALS: BP 132/80
--- NOTE | 2022-10-09 20:05 | EKG ---
[facility] [address] [place] [address] Signed Sinus tachycardia with 1st degree AV block with occasional premature ventricular complexes Right superior axis deviation Low voltage QRS Nonspecific ST abnormality Abnormal ECG When compared with ECG of 12-SEP-2022 18:09, premature ventricular complexes are now present Confirmed by JENNIFER RO MD ([id number]) on 10/09/2022 8:05:16 PM Electronically Signed By: JENNIFER RO 10/09/222004 PATIENT NAME: MIGUELANGEL TRACY Electrocardiogram DATE OF : 58 PHYSICIAN: JENNIFER RO REPORT #: [id number] REPORT IS CONFIDENTIAL AND NOT TO BE RELEASED WITHOUT AUTHORIZATION
== END 2022-10-09 12:21 | disposition home or self-care (01) ==
LOC: ED 09:39
PROVIDERS: Emergency Medicine
DX: R10.13 Epigastric pain (principal); G43.909 Migraine, unspecified, not intractable, without status migrainosus; E78.5 Hyperlipidemia, unspecified; I25.2 Old myocardial infarction; Z87.891 Personal history of nicotine dependence; Z79.51 Long term (current) use of inhaled steroids; Z79.82 Long term (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; Z79.4 Long term (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; Z79.899 Other long term (current) drug therapy
CPT/HCPCS: 36415; 71045; 76705; 80053; 83690; 83735; 84484; 85025; 93005; 93010; 96374; 96375; 99285-25; J1170; J2405

== ENCOUNTER 2024-02-23 16:42 | Emergency (ER) | payer OTHER ==
[~2024-02-23] VITALS: Ht 175.3 cm; Wt 95.6 kg
[~2024-02-23 16:42] MED LIST changes: +CARVEDILOL12.5 MG PO; +ONDANSETRON ODT8 MG PO; +PROTONIX40 MG PO
[2024-02-23] MEDS ORDERED: IBLOOD GLUCOSE TEST STRIP 1 EA TEST XX ONE (17:00)
[2024-02-23 17:15] LABS: BASOPHILS 0.2 % (0-2); EOSINOPHILS 0.2 % (0-6); HEMATOCRIT 40.1 % (35.0-50.0); MCH 24.5 (27-36); MCHC 32.5 g/dl (30-36); MCV 75.3 fl (81-99); MONOCYTES 4.7 % (0-12); NEUTROPHILS 92.9 % (39-80); PLATELET COUNT 128 K/uL (140-440); RBC 5.32 M/ul (4.3-5.7); RDW 17.5 (10.5-15.0)
[2024-02-23 17:26] LABS: PARTIAL THROMBOPLASTIN TIME 24.7 Sec (22.9-41.3)
[2024-02-23 17:27] LABS: INR 1.05 (0.80-1.30); PROTIME 13.6 Sec (11.2-14.2)
[2024-02-23 17:33] LABS: ALBUMIN 3.7 g/dL (3.4-5.0); ALBUMIN/GLOBULIN RATIO 0.8 (1.1-2.4); ANION GAP 16.7 (7-21); BILIRUBIN, TOTAL 1.5 ng/dL (0.2-1.0); BUN/CREATININE RATIO 11.95 (6.0-28.6); CALCIUM 8.7 mg/dL (8.5-10.1); CREATININE, SERUM 1.84 mg/dL (0.70-1.30); POTASSIUM 4.7 mmol/L (3.5-5.1); PROTEIN, TOTAL 8.3 g/dL (6.4-8.2)
[2024-02-23] MEDS ORDERED: SODIUM CHLORIDE 0.9% 1,000 ML IV PRN (18:00)
[2024-02-23 18:42] LABS: BILIRUBIN, URINE NEGATIVE (negative); BLOOD/HGB, URINE NEGATIVE (Negative); KETONE, URINE NEGATIVE (Negative); LEUK ESTERASE, URINE NEGATIVE (negative); NITRITE, URINE NEGATIVE (negative)
[2024-02-23 18:51] LABS: BACTERIA, URINE NONE SEEN /hpf (negative); CASTS, URINE NONE SEEN \\lpf; COLLECTION TYPE, URINE CLEAN CATCH; CRYSTALS, URINE NONE SEEN (0-1+); EPITHELIAL CELLS, URINE NONE SEEN /lpf (0-1+); RED BLOOD CELLS, URINE 0-1 /hpf (0-5); REFLEX CULTURE, URINE No (No); WHITE BLOOD CELLS, URINE 0-1 /HPF (0-5)
[2024-02-23 18:59] LABS: AMPHETAMINES, URINE NEGATIVE (NEGATIVE); BARBITURATES, URINE NEGATIVE (NEGATIVE); BENZODIAZEPINE, URINE NEGATIVE (NEGATIVE); BUPRENORPHINE, URINE NEGATIVE (NEGATIVE); CANNABINOID, URINE NEGATIVE (NEGATIVE); COCAINE, URINE NEGATIVE (NEGATIVE); ECSTASY, URINE NEGATIVE (NEGATIVE); FENTANYL, URINE NEGATIVE (NEGATIVE); METHADONE, URINE NEGATIVE (NEGATIVE); OPIATES, URINE POSITIVE (NEGATIVE); OXYCODONE, URINE NEGATIVE (NEGATIVE); PHENCYCLIDINE, URINE NEGATIVE (NEGATIVE)
[2024-02-23 19:21] VITALS: BP 107/53
--- NOTE | 2024-02-23 21:55 | EKG ---
[facility] [address] [place] [address] Signed Sinus tachycardia with 1st degree AV block Otherwise normal ECG When compared with ECG of 04-MAY-2023 18:59, premature ventricular complexes are no longer present NC interval has increased Criteria for Septal infarct are no longer present Confirmed by Claire Harmon MD () on 02/23/2024 9:54:57 PM Electronically Signed By: CLAIRE HARMON MD 02/23/24 2155 PATIENT NAME: MIGUELANGEL TRACY Electrocardiogram DATE OF : 58 PHYSICIAN: CLAIRE HARMON MD REPORT #: [id number] REPORT IS CONFIDENTIAL AND NOT TO BE RELEASED WITHOUT AUTHORIZATION
== END 2024-02-23 19:24 | disposition home or self-care (01) ==
LOC: ED 16:42
PROVIDERS: Emergency Medicine
DX: G93.40 Encephalopathy, unspecified (principal); R47.81 Slurred speech; R53.1 Weakness; I25.2 Old myocardial infarction; E11.9 Type 2 diabetes mellitus without complications; I50.22 Chronic systolic (congestive) heart failure; Z87.891 Personal history of nicotine dependence; Z95.5 Presence of coronary angioplasty implant and graft; Z79.82 Long term (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; Z79.899 Other long term (current) drug therapy; Z79.4 Long term (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; Z79.84 Long term (current) use of oral hypoglycemic drugs
CPT/HCPCS: 36415; 70450; 70496; 70498; 71045; 80053; 80307; 81001; 84484; 85025; 85610; 85730; 93005; 93010; 99285-25; J7030; Q9967

== ENCOUNTER 2024-12-12 21:47 | Emergency (ER) | payer MEDICARE, OTHER ==
[~2024-12-12] VITALS: Ht 175.3 cm; Wt 95.3 kg
[2024-12-12] MEDS ORDERED: BUPRENORPHIN-N1 EACH SL (22:05)
[2024-12-12 22:21] LABS: BASOPHILS 0.8 % (0.2-1.2); EOSINOPHILS 1.5 % (0.8-7.0); LYMPHOCYTES 9.3 % (21.8-53.1); MCH 24.8 PG (25.7-32.2); MCHC 31.5 g/dL (32.3-36.5); MCV 79.0 fL (79.0-92.2); MONOCYTES 5.4 % (5.3-12.2); NEUTROPHILS 82.7 % (34.0-67.9); RBC 4.99 M/uL (4.63-6.08)
[2024-12-12 22:45] LABS: ALT (SGPT) 18.0 U/L (14-59); AST (SGOT) 14.0 U/L (15-37); GLOMERULAR FILTRATION RATE,EST 70.0 mL/min (>60); PROTEIN, TOTAL 7.3 g/dL (6.4-8.2); UREA NITROGEN 24.0 mg/dL (7-18)
[2024-12-12 23:05] LABS: BLOOD/HGB, URINE NEGATIVE (Negative); KETONE, URINE SMALL (Negative); LEUK ESTERASE, URINE NEGATIVE (negative); NITRITE, URINE NEGATIVE (negative)
[2024-12-12 23:19] LABS: AMPHETAMINES, URINE NEGATIVE (NEGATIVE); BARBITURATES, URINE NEGATIVE (NEGATIVE); BENZODIAZEPINE, URINE NEGATIVE (NEGATIVE); CANNABINOID, URINE NEGATIVE (NEGATIVE); COCAINE, URINE NEGATIVE (NEGATIVE); ECSTASY, URINE NEGATIVE (NEGATIVE); FENTANYL, URINE NEGATIVE (NEGATIVE); METHADONE, URINE NEGATIVE (NEGATIVE); OPIATES, URINE NEGATIVE (NEGATIVE); OXYCODONE, URINE NEGATIVE (NEGATIVE); PHENCYCLIDINE, URINE NEGATIVE (NEGATIVE)
[2024-12-13 00:50] VITALS: BP 121/60
--- NOTE | 2024-12-14 07:40 | EKG ---
[facility] [address] [facility] [place] [address] Signed Sinus rhythm with occasional premature ventricular complexes Left axis deviation Low voltage QRS Cannot rule out Inferior infarct , age undetermined Abnormal ECG When compared with ECG of 23-FEB-2024 17:27, premature ventricular complexes are now present Confirmed by Iman Lewis DO ([id number]) on 12/14/2024 7:39:56 AM Electronically Signed By: IMAN LEWIS DO 12/14/24 0740 PATIENT NAME: MIGUELANGEL TRACY Electrocardiogram DATE OF : 58 PHYSICIAN: IMAN LEWIS DO REPORT #: [id number] REPORT IS CONFIDENTIAL AND NOT TO BE RELEASED WITHOUT AUTHORIZATION
== END 2024-12-13 00:52 | disposition home or self-care (01) ==
LOC: ED 21:47
PROVIDERS: Internal Medicine
DX: R41.0 Disorientation, unspecified (principal); T40.495A Adverse effect of other synthetic narcotics, initial encounter; I50.9 Heart failure, unspecified; E11.9 Type 2 diabetes mellitus without complications; E78.5 Hyperlipidemia, unspecified; Z87.891 Personal history of nicotine dependence; Z79.899 Other long term (current) drug therapy
CPT/HCPCS: 36415; 71045; 80053; 80307; 81003; 83880; 84484; 85025; 93005; 93010; 96374; 99285-25; J2405